=== PATIENT | male | born 1965 | race Caucasian/White ===

== ENCOUNTER → 2017-03-02 | Outpatient (CLI) | payer OTHER ==
--- NOTE | 2017-03-02 10:08 | XR ---
EXAMINATION TYPE: XR chest 2V DATE OF EXAM: 03/02/2017 COMPARISON: NONE HISTORY: Shortness of breath TECHNIQUE: Frontal and lateral views of the chest are obtained. FINDINGS: Scattered senescent parenchymal changes noted. Hyperinflation compatible with COPD. Mild increased density right medial lung base may reflect developing infiltrate or atelectasis. Heart size is stable. Mediastinal structures are stable and grossly unremarkable. No evidence for hilar prominence. Degenerative changes dorsal spine. IMPRESSION: 1. Mild increased density right medial lung base may reflect developing infiltrate or atelectasis.
--- NOTE | 2017-03-02 10:12 | XR ---
EXAMINATION TYPE: XR knee complete LT DATE OF EXAM: 03/02/2017 COMPARISON: NONE HISTORY: Knee pain TECHNIQUE: Four views are submitted. FINDINGS: Mild narrowing of the medial compartment with minimal spur formation. No erosive changes.. Osseous s tructures are intact. No acute fracture seen. IMPRESSION: 1. No acute fracture or dislocation. Mild osteoarthritis.
== END | disposition home or self-care (01) ==
LOC: RADXRMAIN 09:32
PROVIDERS: ATTEND Family Medicine
DX: M17.12 Unilateral primary osteoarthritis, left knee (principal); J98.4 Other disorders of lung
CPT/HCPCS: 71020

== ENCOUNTER → 2017-03-09 | Outpatient (CLI) | payer OTHER ==
--- NOTE | 2017-03-09 15:39 | XR ---
EXAMINATION TYPE: XR chest 2V DATE OF EXAM: 03/09/2017 COMPARISON: Prior chest x-ray 03/02/2017 HISTORY: Edema, R 60.9 TECHNIQUE: Frontal and lateral views of the chest are obtained. FINDINGS: There may be a spinal curvature, patient is rotated. No evident pneumonia, pneumothorax, o r pleural effusion. Cardiac mediastinal silhouette, pulmonary vascularity and reece are stable. Suspec t some improved aeration at the lung bases. Difficult to exclude some airspace disease at the left co stophrenic angle. IMPRESSION: Rotated exam possibly due to underlying scoliosis. There may be some basilar atelectasis or scarring versus pneumonia at the left lower lobe or lingula. Findings could be technical. Follow- up as indicated.
== END | disposition home or self-care (01) ==
LOC: RADXRMAIN 13:58
PROVIDERS: ATTEND Family Medicine
DX: R60.9 Edema, unspecified (principal)
CPT/HCPCS: 71020

== ENCOUNTER → 2017-03-23 | Outpatient (CLI) | payer OTHER ==
--- NOTE | 2017-03-23 10:29 | ECHOF ---
Referral Reason:R609 edema MEASUREMENTS -------- HEIGHT: 152.4 cm WEIGHT: 115.7 kg BP: RVIDd: 3.1 cm (< 3.3) IVSd: 1.0 cm (0.6 - 1.1) LVIDd: 4.6 cm (3.9 - 5.3) LVPWd: 1.0 cm (0.6 - 1.1) IVSs: 1.3 cm LVIDs: 3.7 cm LVPWs: 1.3 cm LA Diam: 3.0 cm (2.7 - 3.8) Ao Diam: 3.5 cm (2.0 - 3.7) AV Cusp: 2.3 cm (1.5 - 2.6) LA Diam: 3.1 cm (2.7 - 3.8) MV EXCURSION: 21.171 mm (> 18.000) MV EF SLOPE: 88 mm/s (70 - 150) EPSS: 0.3 cm MV E Praveen: 0.42 m/s MV DecT: 153 ms MV A Praveen: 0.39 m/s MV E/A Ratio: 1.07 RAP: 5.00 mmHg RVSP: 11.95 mmHg FINDINGS -------- Sinus rhythm. Pt is Special needs. Left ventricular wall thickness is normal. Overall left ventricular systolic function is normal with, an EF between 55 - 60 %. The right ventricle is normal in size. The left atrial size is normal. The right atrial size is normal. There is mild aortic valve sclerosis. There is no evidence of aortic regurgitation. Mild mitral annular calcification present. Mild mitral regurgitation is present. Trace tricuspid regurgitation present. There is no evidence of pulmonary hypertension. The right ventricular systolic pressure, as measured by Doppler, is 11.95mmHg. The pulmonic valve was not well visualized. The aortic root size is normal. There is no pericardial effusion. CONCLUSIONS -------- 1. Pt is Special needs. 2. The pulmonic valve was not well visualized. 3. Left ventricular wall thickness is normal. 4. Overall left ventricular systolic function is normal with, an EF between 55 - 60 %. 5. There is mild aortic valve sclerosis. 6. Mild mitral annular calcification present. 7. Mild mitral regurgitation is present. 8. Trace tricuspid regurgitation present. 9. There is no evidence of pulmonary hypertension. 10. The right ventricular systolic pressure, as measured by Doppler, is 11.95mmHg. BAND SAWMILL OPERATOR: Talita River RDCS
--- NOTE | 2017-03-24 13:12 | P.ARTDOP ---
Arterial Doppler LOWER EXTREMITY ARTERIAL DOPPLER: DATE OF SERVICE: 03/23/2017 Reason for study: Edema. Doppler waveforms: Multiphasic bilaterally throughout. Pulse volume recording: Normal configuration. Pressure gradients: None. Ankle-brachial indices: Greater than 1 bilaterally. Toe pressures: [] on the right, [] on the left Impression: Normal study.
== END | disposition home or self-care (01) ==
LOC: RADECHMAIN 08:42
PROVIDERS: ATTEND Family Medicine
DX: I73.9 Peripheral vascular disease, unspecified (principal); R60.9 Edema, unspecified
CPT/HCPCS: 93306; 93923

== ENCOUNTER 2019-10-11 08:33 | Day surgery (SDC) | payer OTHER ==
[2019-10-03 15:19] VITALS: BMI 29.7
--- NOTE | 2019-10-11 07:35 | P.GSHP ---
History of Present Illness H&P Date: 10/11/19 CHIEF COMPLAINT: GERD and colon screen HISTORY OF PRESENT ILLNESS: The patient is a 53-year-old male who presents with gastroesophageal reflux disease and need for colon screen. Upper and lower endoscopy were offered for further evaluation and management. PAST MEDICAL HISTORY: Please see list. PAST SURGICAL HISTORY: Please see list. MEDICATIONS: Please see list. ALLERGIES: Please see list. SOCIAL HISTORY: No illicit drug use FAMILY HISTORY: No reports of Crohn disease or ulcerative colitis. REVIEW OF ORGAN SYSTEMS: CONSTITUTIONAL: No reports of fevers or chills. GI: Denies any blood in stools or constipation. PHYSICAL EXAM: VITAL SIGNS: Stable GENERAL: Well-developed pleasant in no acute distress. HEENT: No scleral icterus. Extraocular movements grossly intact. Moist buccal mucosa. NECK: Supple without lymphadenopathy. CHEST: Unlabored respirations. Equal bilateral excursions. CARDIOVASCULAR: Regular rate and rhythm. Distal 2+ pulses. ABDOMEN: Soft, nondistended. MUSCULOSKELETAL: No clubbing, cyanosis, or edema. ASSESSMENT: 1. Gastroesophageal reflux disease 2. Colon screen. PLAN: 1. Recommend proceeding with an upper and lower endoscopy Past Medical History Past Medical History: Hypertension Additional Past Medical History / Comment(s): autism-limited speech and short phrases, can become agitated and combative,intermittent vomiting mucus when eating-no pattern or with certain foods History of Any Multi-Drug Resistant Organisms: None Reported Past Surgical History: No Surgical Hx Reported Past Anesthesia/Blood Transfusion Reactions: No Reported Reaction Additional Past Anesthesia/Blood Transfusion Reaction / Comment(s): never has had general anesthesia Smoking Status: Never smoker - Past Family History Mother History Unknown: Yes Father Family Medical History: Cancer Additional Family Medical History / Comment(s): prostate Medications and Allergies Home Medications Medication Instructions Recorded Confirmed Type Ascorbic Acid [Vitamin C] 500 mg PO DAILY 10/03/19 10/03/19 History Carvedilol 25 mg PO HS 10/03/19 10/03/19 History FLUoxetine HCL [PROzac] 80 mg PO QAM 10/03/19 10/03/19 History Furosemide [Lasix] 40 mg PO DAILY 10/03/19 10/03/19 History LORazepam [Ativan] 0.25 mg PO BID 10/03/19 10/03/19 History Lisinopril-Hctz 20-25 mg 1 tab PO DAILY 10/03/19 10/03/19 History [Zestoretic 20-25] Omeprazole 20 mg PO BID 10/03/19 10/03/19 History Polyethylene Glycol 3350 [Miralax] 17 gm PO DAILY 10/03/19 10/03/19 History Potassium Chloride [K-Tab ER] 20 meq PO DAILY 10/03/19 10/03/19 History Vitamin E 400 unit PO DAILY 10/03/19 10/03/19 History Ziprasidone [Geodon] 40 mg PO BID 10/03/19 10/03/19 History Allergies Allergy/AdvReac Type Severity Reaction Status Date / Time Penicillins Allergy Unknown Verified 10/03/19 15:06
[~2019-10-11 08:33] MED LIST: LACTATED RINGERS 1,000 ML IV SCH; LIDOCAINE 1% (10MG/ML) FOR IV START INTRADERMA PRN
[2019-10-11 08:59] VITALS: TEMP 97.8
[2019-10-11] MEDS ORDERED: MIDAZOLAM 2 MG/2 ML VIAL IVP ONE (09:15)
[2019-10-11] MEDS ORDERED: PROPOFOL 10 MG/ML 20 ML VIAL IV ONE (09:57)
[2019-10-11] MEDS ORDERED: LIDOCAINE 1% INJ 10MG/ML (20 ML MDV) ONE (09:57)
--- NOTE | 2019-10-11 10:30 | P.PCN ---
Date of Procedure: 10/11/19 Description of Procedure: PREOPERATIVE DIAGNOSIS: Dysphagia Cognitive delay POSTOPERATIVE DIAGNOSIS: Dysphagia Cognitive delay Gastroesophageal reflux disease. Diaphragmatic hiatal hernia Distal esophageal web OPERATION: Esophagogastroduodenoscopy with balloon dilation, 20 mm esophageal web SURGEON: Linette Gonsales MD ANESTHESIA: MAC. INDICATIONS: The patient is a 53-year-old male who presents with dysphagia. Benefits and risks of the procedure were described. Informed consent was obtained. DESCRIPTION: The patient was brought into the endoscopy suite and laid in the left lateral decubitus position. An Olympus gastroscope was passed along the posterior oropharynx down to the distal esophagus where the squamocolumnar junction was encountered at 35 cm from the incisors. The stomach was entered and no bile reflux was found. Additional findings are listed below. Biopsies with cold forceps were obtained of the antrum. The first through third portion of the duodenum was examined and unremarkable. Retroflexion of the scope confirmed Hill grade 4 lower esophageal valve. The squamocolumnar junction demonstrated LA grade B erosive esophagitis. The stomach was desufflated. The patient tolerated the procedure well. FINDINGS: Squamocolumnar junction 35 cm from the incisors. Diaphragmatic hiatus at 40 cm. Hiatal hernia, 5 cm, sliding hiatal hernia Hill grade 4 lower esophageal valve. LA grade B erosive esophagitis. No active duodenitis. No diffuse acute gastritis RECOMMENDATIONS: Upper endoscopy as needed.
--- NOTE | 2019-10-11 10:57 | P.PCN ---
Date of Procedure: 10/11/19 Description of Procedure: PREOPERATIVE DIAGNOSIS: Colonoscopy screening POSTOPERATIVE DIAGNOSIS: Colonoscopy screening Tubular adenoma transverse colon Sigmoid diverticulosis Clinical obstructive sleep apnea OPERATION: Colonoscopy to the ascending colon Colonoscopy with hot snare polypectomy SURGEON: Linette Gonsales MD. ANESTHESIA: MAC. INDICATIONS: The patient is an 53-year-old male who presents for his first colonoscopy screening. Benefits and risks were described and informed consent was obtained. DESCRIPTION OF PROCEDURE: The patient had undergone Suprep. He had been brought into the operating room and laid in the left lateral decubitus position. After adequate intravenous sedation, the rectum was examined with 2% lidocaine jelly. The prostate was unremarkable. No external hemorrhoids were encountered. The rectal tone was loose. No lesions were palpated in the rectal vault. An Olympus colonoscope was advanced through the ascending colon. The prep was fair. Sigmoid diverticulosis was encountered. Tubular adenoma 7-mm proximal transverse colon snare polypectomy. No evidence of focal colitis was found. Retroflexion of the scope demonstrated grade 1 internal hemorrhoids without active bleeding or inflammation. The colon was desufflated. The patient had tolerated the procedure well. During the case, patient had clinical obstructive sleep apnea requiring supplementary oxygen and airway control. Withdrawal time was over 6 minutes. FINDINGS: Aronchick preparation quality scale 3 (1-5) Internal hemorrhoids, grade 1 No external hemorrhoids No arteriovenous malformations. Sigmoid diverticulosis Removal of 1 polyps : - Snare polypectomy at proximal transverse colon, 7 mm polyp. No focal colitis. RECOMMENDATIONS: Repeat colonoscopy 3 years, 2022 Plan - Discharge Summary Discharge Rx Participant: No New Discharge Prescriptions: Continue Ziprasidone [Geodon] 40 mg PO BID Vitamin E 400 unit PO DAILY Ascorbic Acid [Vitamin C] 500 mg PO DAILY Potassium Chloride [K-Tab ER] 20 meq PO DAILY Omeprazole 20 mg PO BID Lisinopril-Hctz 20-25 mg [Zestoretic 20-25] 1 tab PO DAILY LORazepam [Ativan] 0.25 mg PO BID Polyethylene Glycol 3350 [Miralax] 17 gm PO DAILY Furosemide [Lasix] 40 mg PO DAILY FLUoxetine HCL [PROzac] 80 mg PO QAM Carvedilol 25 mg PO HS Discharge Medication List Ascorbic Acid [Vitamin C] 500 mg PO DAILY 10/03/19 [History] Carvedilol 25 mg PO HS 10/03/19 [History] FLUoxetine HCL [PROzac] 80 mg PO QAM 10/03/19 [History] Furosemide [Lasix] 40 mg PO DAILY 10/03/19 [History] LORazepam [Ativan] 0.25 mg PO BID 10/03/19 [History] Lisinopril-Hctz 20-25 mg [Zestoretic 20-25] 1 tab PO DAILY 10/03/19 [History] Omeprazole 20 mg PO BID 10/03/19 [History] Polyethylene Glycol 3350 [Miralax] 17 gm PO DAILY 10/03/19 [History] Potassium Chloride [K-Tab ER] 20 meq PO DAILY 10/03/19 [History] Vitamin E 400 unit PO DAILY 10/03/19 [History] Ziprasidone [Geodon] 40 mg PO BID 10/03/19 [History] Follow up Appointment(s)/Referral(s): Linette Gonsales MD [STAFF PHYSICIAN] - 10/24/19 Patient Instructions/Handouts: Esophageal Stricture (ED), Esophageal Dilation (DC), Hiatal Hernia (DC) Discharge Disposition: HOME SELF-CARE
[2019-10-11 11:32] VITALS: BP 142/96; PULSE 69; RESP 20
--- NOTE | 2019-10-13 12:31 | CDI ---
Date: 10.13.19 CDS/Produce Wrapper Name: Lorraine Sotelo Phone: If any questions, call Katelyn Flynn [facility] at [phone] Patient Name: Dru Admit Date: 10.11.19 Discharge Date: 10.11.19 ATTENTION: The [facility] Coding Staff appreciate your assistance in clarifying documentation. Please respond to the clarification below the line at the bottom and electronically sign. The [facility] Coding staff will review the response and follow-up if needed. Please note: Queries are made part of the Legal Health Record. If you have any questions, please contact the Tug [facility]. Dear Dr Gonsales On the EGD report under the operation that was listed you dictated EGD w/Balloon dilation, 20 mm esophageal web. But in the description of the report the dilation or esophageal web is not mentioned. Was this done? If so, please document it. Thank you for your kind consideration. PLEASE SEE CORRECTED OP NOTE. KM 10/13/19 15:37 MTDD
== END 2019-10-11 12:00 | disposition home health service (06) ==
LOC: ORWHC2ENDO 08:33
PROVIDERS: ATTEND Surgery Plastic and Reconstructive Surgery
DX: K21.0 Gastro-esophageal reflux disease with esophagitis (principal); K22.10 Ulcer of esophagus without bleeding; K44.9 Diaphragmatic hernia without obstruction or gangrene; Q39.4 Esophageal web; Z12.11 Encounter for screening for malignant neoplasm of colon; D12.3 Benign neoplasm of transverse colon; K57.30 Diverticulosis of large intestine without perforation or abscess without bleeding; K64.0 First degree hemorrhoids; G47.33 Obstructive sleep apnea (adult) (pediatric); F84.0 Autistic disorder; G31.84 Mild cognitive impairment of uncertain or unknown etiology; I10 Essential (primary) hypertension; F41.9 Anxiety disorder, unspecified; Z88.0 Allergy status to penicillin; Z79.899 Other long term (current) drug therapy; Z86.69 Personal history of other diseases of the nervous system and sense organs; Z80.42 Family history of malignant neoplasm of prostate
CPT/HCPCS: 88305; 45385; 43239; 43249; J2250; J2001; J2704; C1726

== ENCOUNTER 2019-10-11 15:41 | Emergency (ER) | payer OTHER ==
[2019-10-11] MEDS ORDERED: LORazepam 2 MG/ML INJ ONE (16:14)
[2019-10-11] MEDS ORDERED: METOCLOPRAMIDE 5 MG/ML 2 ML VIAL IVP STA (16:22)
[2019-10-11] MEDS ORDERED: SODIUM CHLORIDE 0.9% 1,000 ML IV ONE (16:23)
[2019-10-11] MEDS ORDERED: SODIUM CHLORIDE 0.9% 500 ML 500 ML IV ONE (16:23)
[2019-10-11] MEDS ORDERED: LORazepam 2 MG/ML INJ IV STA (16:23)
--- NOTE | 2019-10-11 16:29 | ED ---
General Adult HPI - General Chief complaint: Abdominal Pain Stated complaint: Vomiting pos op Time Seen by Provider: 10/11/19 15:45 Source: patient, RN notes reviewed, old records reviewed, Caregiver Mode of arrival: wheelchair Limitations: physical limitation - History of Present Illness Initial comments: This is a 53-year-old male who presents to the emergency department with his caregiver. Patient is developmentally delayed. Patient has been vomiting intermittently since May. Patient came in today to have a esophageal dilatation and endoscopy. Patient was sent home was doing fine took a popsicle at home and then started the vomiting. Caregiver states that the vomiting is the same visits always been when she called the office they told her to come to the emergency department. Patient is unable to give any history. Caregiver states this is what they've been dealing with since May and nothing has changed and they wouldn't brought a minute less Dr. Bhandari office told him to bring him in - Related Data Home Medications Medication Instructions Recorded Confirmed Ascorbic Acid [Vitamin C] 500 mg PO HS@199910/03/19 10/11/19 Carvedilol 25 mg PO HS@199910/03/19 10/11/19 FLUoxetine HCL [PROzac] 80 mg PO DAILY@0800 10/03/19 10/11/19 Furosemide [Lasix] 40 mg PO DAILY@0810/03/19 10/11/19 LORazepam [Ativan] 0.25 mg PO BID@0800,1500 10/03/19 10/11/19 Lisinopril-Hctz 20-25 mg 1 tab PO DAILY@79910/03/19 10/11/19 [Zestoretic 20-25] Omeprazole 20 mg PO BID@07,199910/03/19 10/11/19 Polyethylene Glycol 3350 [Miralax] 17 gm PO DAILY@0800 10/03/19 10/11/19 Potassium Chloride [K-Tab ER] 20 meq PO DAILY@79910/03/19 10/11/19 Vitamin E 400 unit PO HS@199910/03/19 10/11/19 Ziprasidone [Geodon] 40 mg PO BID@0800,1800 10/03/19 10/11/19 Albuterol Inhaler [Ventolin Hfa 2 puff INHALATION RT-Q6H PRN 10/11/19 10/11/19 Inhaler] guaiFENesin SYRUP 100MG/5ML 200 mg PO TID PRN 10/11/19 10/11/19 [Robitussin] guaiFENesin-DM 600/30MG [Mucinex 1 tab PO BID PRN 10/11/19 10/11/19 Dm] Allergies Allergy/AdvReac Type Severity Reaction Status Date / Time Penicillins Allergy Unknown Verified 10/11/19 17:21 Review of Systems ROS Statement: Those systems with pertinent positive or pertinent negative responses have been documented in the HPI. ROS Other: All systems not noted in ROS Statement are negative. Past Medical History Past Medical History: Hypertension Additional Past Medical History / Comment(s): autism-limited speech and short phrases, can become agitated and combative,intermittent vomiting mucus when eating-no pattern or with certain foods History of Any Multi-Drug Resistant Organisms: None Reported Past Surgical History: No Surgical Hx Reported Past Anesthesia/Blood Transfusion Reactions: No Reported Reaction Additional Past Anesthesia/Blood Transfusion Reaction / Comment(s): never has had general anesthesia Past Psychological History: Anxiety Smoking Status: Never smoker - Past Family History Mother History Unknown: Yes Father Family Medical History: Cancer Additional Family Medical History / Comment(s): prostate General Exam - General Exam Comments Initial Comments: GENERAL Patient is well-developed and well-nourished. Patient is in mild distress. Patient is vomiting up clear sputum. EYES Patient's pupils are equal and round. Extraocular motion is intact SKIN Unremarkable ABDOMINAL Nontender NEURO The patient is alert and at his baseline orientation according to the caregiver PYSCH Unable to assess secondary to his developmental delay MUSCULOSKELETAL Patient was all 4 extremities. Limitations: physical limitation Course Vital Signs 10/11/19 10/11/19 15:44 17:22 Temperature 97.3 F L 98.1 F Pulse Rate 79 86 Respiratory 20 19 Rate Blood Pressure 151/88 123/74 O2 Sat by Pulse 100 95 Oximetry Medical Decision Making - Medical Decision Making I spoke with Dr. Bhandari she wanted us to hydrate the patient up give him some antibiotics and do a chest x-ray and everything was fine she wanted the patient to be discharged home and follow-up. Chest x-ray shows no acute abnormality. Disposition Clinical Impression: Chronic vomiting Disposition: HOME SELF-CARE Condition: Good Instructions (If sedation given, give patient instructions): Acute Nausea and Vomiting (ED) Is patient prescribed a controlled substance at d/c from ED?: No Referrals: Andre Murillo Jr, [Primary Care Provider] - 1-2 days Time of Disposition: 17:52
--- NOTE | 2019-10-11 16:47 | XR ---
EXAMINATION TYPE: XR chest 1V portable DATE OF EXAM: 10/11/2019 COMPARISON: 03/09/2017 HISTORY: Abdominal pain. Sore throat. Nausea and vomiting. TECHNIQUE: Single view FINDINGS: There is no heart failure nor confluent pneumonic infiltrate. Costophrenic angles are clear . There are no hilar masses. Mediastinum appears normal. IMPRESSION: No active cardiopulmonary disease.
[2019-10-11 17:23] VITALS: BP 123/74; PULSE 86; RESP 19; TEMP 98.1
--- NOTE | 2019-10-11 18:12 | P.GSCN ---
History of Present Illness Consult date: 10/11/19 History of present illness: CHIEF COMPLAINT: Intractable nausea and vomiting HISTORY OF PRESENT ILLNESS: The patient is a 53-year-old male with cognitive delay who earlier today had both an upper and lower endoscopy. Upper endoscopy was performed for dysphagia. Findings of hiatal hernia and esophageal stricture following dilation was performed. Per discussion with family, patient has long- standing history of chronic dysphagia. The family was advised to keep the patient li on quid diet today. Immediately upon returning home, he was started on popsicles where he developed violent intractable nausea and vomiting. They had notify my office. As result of the severity of his intractable nausea vomiting , they came to the emergency room. At the time of my assessment, patient is relatively comfortable. He has intermittent cough. No productive sputum or phlegm. No reports of abdominal pain. His caregiver from this morning is at bedside. She confirms the patient has trouble was textured foods including positives and breaths. She has tried cutting noodles and feeding him before with nausea and vomiting as a result. He tolerated liquids prior to discharge earlier this morning without incident. PAST MEDICAL HISTORY: See list. PAST SURGICAL HISTORY: See list. MEDICATIONS: See list. ALLERGIES: See list. SOCIAL HISTORY: See list. FAMILY HISTORY: See list. REVIEW OF ORGAN SYSTEMS: CONSTITUTIONAL: No fevers or chills. No recent weight loss. EYES: Denies any trouble with vision. Wears glasses. HEENT: No difficulties with hearing. No nosebleeds. Has difficulty swallowing. RESPIRATORY: Has witnessed obstructive sleep apnea. CARDIOVASCULAR: Denies current chest pain. GASTROINTESTINAL: Denies fatty food intolerance. Has chronic constipation. Colonoscopy this morning with polyp removed from proximal transverse colon. GENITOURINARY: No increased urinary frequency. NEUROLOGICAL: Denies any numbness or tingling along the distal extremities. Has seizure disorders. MUSCULOSKELETAL: Has intermittent back pain, stiffness or joint arthritis. SKIN: No current skin cancer. No rash. PSYCHIATRIC: Has depression ENDOCRINE: Has thyroid disorders. Denies any blood sugar glucose intolerance. HEME/LYMPHATIC: No lumps and bumps around the neck. No recent deep venous thrombosis. ALLERGY/IMMUNOLOGY: No immunoglobulin therapy. No immune deficiencies. BREAST: No breast lumps, pain or nipple discharge. PHYSICAL EXAM: VITALS: Reviewed CONSTITUTIONAL: Well developed and in no acute distress. EYES: Conjuctivae without sclera icterus. Pupils are equally round and reactive to light. Extraocular movements grossly intact. HEAD, EARS, NOSE, THROAT: Moist buccal mucosa. Head is atraumatic, normocephalic. Hears conversational speech. No nasal drainage. NECK: Supple. No JV distention. No thyroidomegaly. RESPIRATORY: Non-labored respirations and equal bilateral excursions. No gross wheezes. CARDIOVASCULAR: Regular rate and rhythm. Extremities without moderate edema. Palpable 2+ radial pulses. ABDOMEN: Soft. Non-tender. Nondistended. LYMPH: No neck lymphadenopathy. No axillary lymphadenopathy. MUSCULOSKELETAL: Nail and fingers with good capillary refill. SKIN: Warm and well perfused with good skin turgor. NEUROLOGIC: Cranial nerves I through XII grossly intact. Sensation upper and extremities intact. No focal or lateralizing signs. PSYCH: Flat affect. Alert to person. Rigid speech. CLINCAL LABS: None available. [facility] without erythema mediastinum. RADIOLOGY: Report reviewed confirms unremarkable study ASSESSMENT: 1. Intractable nausea vomiting, pre-existing 2. History of dysphagia 3. Esophageal stricture 4. Hiatal hernia 5. Cognitive delay 6. Seizure disorder 7. Obstructive sleep apnea PLAN: 1. Recommend antiemetics prior to discharge. 2. Family told to continue liquid diet. Avoid textured foods such as breads and meats processes. May have cream of wheat. 3. Follow-up in the office 4. Will need outpatient swallow study including assessment of obstructive sleep apnea. Thank you for this kind consultation. Past Medical History Past Medical History: Hypertension Additional Past Medical History / Comment(s): autism-limited speech and short phrases, can become agitated and combative,intermittent vomiting mucus when eating-no pattern or with certain foods History of Any Multi-Drug Resistant Organisms: None Reported Past Surgical History: No Surgical Hx Reported Past Anesthesia/Blood Transfusion Reactions: No Reported Reaction Additional Past Anesthesia/Blood Transfusion Reaction / Comm: never has had general anesthesia Past Psychological History: Anxiety Smoking Status: Never smoker - Past Family History Mother History Unknown: Yes Father Family Medical History: Cancer Additional Family Medical History / Comment(s): prostate Medications and Allergies Home Medications Medication Instructions Recorded Confirmed Type Ascorbic Acid [Vitamin C] 500 mg PO HS@199910/03/19 10/11/19 History Carvedilol 25 mg PO HS@199910/03/19 10/11/19 History FLUoxetine HCL [PROzac] 80 mg PO DAILY@0800 10/03/19 10/11/19 History Furosemide [Lasix] 40 mg PO DAILY@0800 10/03/19 10/11/19 History LORazepam [Ativan] 0.25 mg PO BID@0800,1500 10/03/19 10/11/19 History Lisinopril-Hctz 20-25 mg 1 tab PO DAILY@0800 10/03/19 10/11/19 History [Zestoretic 20-25] Omeprazole 20 mg PO BID@0700,199910/03/19 10/11/19 History Polyethylene Glycol 3350 [Miralax] 17 gm PO DAILY@0800 10/03/19 10/11/19 History Potassium Chloride [K-Tab ER] 20 meq PO DAILY@0800 10/03/19 10/11/19 History Vitamin E 400 unit PO HS@199910/03/19 10/11/19 History Ziprasidone [Geodon] 40 mg PO BID@0800,1800 10/03/19 10/11/19 History Albuterol Inhaler [Ventolin Hfa 2 puff INHALATION RT-Q6H PRN 10/11/19 10/11/19 History Inhaler] guaiFENesin SYRUP 100MG/5ML 200 mg PO TID PRN 10/11/19 10/11/19 History [Robitussin] guaiFENesin-DM 600/30MG [Mucinex 1 tab PO BID PRN 10/11/19 10/11/19 History Dm] Allergies Allergy/AdvReac Type Severity Reaction Status Date / Time Penicillins Allergy Unknown Verified 10/11/19 17:21 Surgical - Exam Vital Signs Temp Pulse Resp BP Pulse Ox 97.3 F L 79 20 151/88 100 10/11/19 15:44 10/11/19 15:44 10/11/19 15:44 10/11/19 15:44 10/11/19 15:44 Assessment and Plan (1) Intractable vomiting Current Visit: Yes Status: Acute Code(s): R11.10 - VOMITING, UNSPECIFIED SNOMED Code(s): 288968153 (2) Esophageal stricture Current Visit: Yes Status: Acute Code(s): K22.2 - ESOPHAGEAL OBSTRUCTION SNOMED Code(s): 23229784 (3) Noncompliance with dietary restriction Current Visit: Yes Status: Acute Code(s): Z91.11 - PATIENT'S NONCOMPLIANCE WITH DIETARY REGIMEN SNOMED Code(s): 772259073 (4) Cognitive developmental delay Current Visit: No Status: Acute Code(s): F81.9 - DEVELOPMENTAL DISORDER OF SCHOLASTIC SKILLS, UNSPECIFIED SNOMED Code(s): 172834037 (5) Dysphagia Current Visit: No Status: Acute Code(s): R13.10 - DYSPHAGIA, UNSPECIFIED SNOMED Code(s): 98578744 (6) Hypotonia, speech impairment, and severe cognitive delay syndrome Current Visit: No Status: Acute Code(s): Q87.89 - OTH CONGENITAL MALFORMATION SYNDROMES, NEC; P94.2 - CONGENITAL HYPOTONIA; F81.9 - DEVELOPMENTAL DISORDER OF SCHOLASTIC SKILLS, UNSPECIFIED; R47.89 - OTHER SPEECH DISTURBANCES SNOMED Code(s): 413203352
== END 2019-10-11 18:06 | disposition home or self-care (01) ==
LOC: EC 15:41 → EEVIPCON 15:41 → EC 18:06
DX: R11.10 Vomiting, unspecified (principal); K22.2 Esophageal obstruction; G31.84 Mild cognitive impairment of uncertain or unknown etiology; Q87.89 Other specified congenital malformation syndromes, not elsewhere classified; P94.2 Congenital hypotonia; F81.9 Developmental disorder of scholastic skills, unspecified; Z91.19 Patient's noncompliance with other medical treatment and regimen; F84.0 Autistic disorder; I10 Essential (primary) hypertension; F41.9 Anxiety disorder, unspecified; Z88.0 Allergy status to penicillin; Z79.899 Other long term (current) drug therapy
CPT/HCPCS: 71045; 99284; 96374; 96375; 96361; J2060; J2765

== ENCOUNTER → 2020-02-14 | Outpatient (CLI) | payer OTHER ==
--- NOTE | 2020-02-14 11:52 | FL ---
EXAMINATION TYPE: FL barium swallow DATE OF EXAM: 02/14/2020 COMPARISON: NONE HISTORY: K22.4 Dyskinesia of esophagus TECHNIQUE: Fluoroscopy. FINDINGS: Patient presented for esophagram however could not follow directions and the examination wa s terminated. 57 seconds of fluoroscopic time was utilized no images were obtained. IMPRESSION: As Above.
== END | disposition home or self-care (01) ==
LOC: RADUSWWP 09:59
PROVIDERS: ATTEND Surgery Plastic and Reconstructive Surgery
DX: K22.4 Dyskinesia of esophagus (principal)
CPT/HCPCS: 74220

== ENCOUNTER → 2020-09-19 | Outpatient (CLI) | payer OTHER ==
--- NOTE | 2020-09-19 16:20 | CONS ---
CONSULTATION DATE OF SERVICE: 09/19/2020 This patient is a 54-year-old gentleman who has been evaluated in the sleep center for possible obstructive sleep apnea-hypopnea syndrome. HISTORY OF PRESENT ILLNESS/SLEEP-WAKE EVALUATION: Patient's usual sleep schedule is from 8:30 p.m. to 6 to 7 a.m. No problems with falling asleep. No TV in bedroom. He sleeps usually on the back position with loud snoring and awakenings from sleep about 2 times with nocturia. Positive history of witnessed episodes of stopped breathing during sleep that was observed during the surgical procedure. During the day the patient takes one nap around 1:30. [place] Sleepiness Scale is 2. PAST MEDICAL HISTORY: Positive for hypertension, bronchitis, acid reflux, anxiety, autistic disorder. PAST SURGICAL HISTORY: Endoscopic balloon surgery for narrowing of the esophagus, as I understand from his history. MEDICATIONS: 1. Carvedilol 25 mg p.o. once a day. 2. Fluoxetine 20 mg 4 caps per day. 3. Furosemide 40 mg once a day. 4. Lisinopril/hydrochlorothiazide 20/25 mg p.o. once a day. 5. Lorazepam 0.5 mg half tablet in the morning and half tablet at 3 p.m. 6. Omeprazole 20 mg twice a day. 7. Vitamin supplements. SOCIAL HISTORY: Negative for smoking or using alcohol. FAMILY HISTORY: Cancer in his father. REVIEW OF SYSTEMS: Loud snoring, awakenings from sleep. The patient takes naps during the day. PHYSICAL EXAMINATION: GENERAL: A pleasant gentleman without distress. VITAL SIGNS: BP 129/84, HR 85, RR 18, height 5 feet 9-1/4 inches, weight 211.8, temperature 97.4, oxygen saturation at room air 97%. HEENT: PERRLA, EOMI. Evaluation of oropharynx showed tongue protrudes midline. Extremely low position of soft palate. Mallampati IV. NECK: Supple. No JVD. Thyroid is not palpable. Wide neck; 17 inches in circumference. LUNGS: Clear to percussion and to auscultation. Good air exchange. No wheezing or rhonchi. HEART: S1, S2 regular. No murmurs, gallops or rubs. ABDOMEN: Slightly obese. EXTREMITIES: One plus ankle edema. IMPRESSION: 1. Loud snoring, witnessed episodes of stopped breathing during sleep, extremely low position of soft palate, wide neck, sleepiness; patient takes naps; obstructive sleep apnea/hypopnea syndrome. 2. Obesity. BMI 31.1. 3. Hypertension. 4. Autistic disorder. 5. Anxiety. 6. Acid reflux. 7. History of bronchitis. 8. Status post esophageal balloon surgery, according to the personnel of his medical facility. PLAN: 1. Polysomnography for evaluation of patient's breathing during sleep. 2. CPAP/BiPAP titration if sleep study confirms obstructive sleep apnea-hypopnea syndrome. 3. Preferable position during sleep on the side. 4. No driving if patient feels any sleepiness. 5. I will see patient for follow up visit to explain results of testing and following plan. Thank you very much for referring this patient for consultation. Sincerely, Anthony Navarro MD, PhD, FAASM Diplomat of [place] [employer] [place] [employer] Bike Designer of [facility] [place] MMODL / [place]: [id number] /
== END | disposition home or self-care (01) ==
LOC: SLEEP 13:49
PROVIDERS: ATTEND Internal Medicine
DX: G47.33 Obstructive sleep apnea (adult) (pediatric) (principal); E66.9 Obesity, unspecified; I10 Essential (primary) hypertension; K21.9 Gastro-esophageal reflux disease without esophagitis; F41.9 Anxiety disorder, unspecified; F84.0 Autistic disorder; Z68.31 Body mass index [BMI] 31.0-31.9, adult; Z87.09 Personal history of other diseases of the respiratory system; Z98.890 Other specified postprocedural states; Z79.899 Other long term (current) drug therapy
CPT/HCPCS: 99211

== ENCOUNTER → 2021-01-29 | Outpatient (CLI) | payer OTHER ==
--- NOTE | 2021-01-29 21:15 | SFUN ---
SLEEP CENTER FOLLOW UP NOTE DATE OF SERVICE: 01/29/2021. 55-year-old gentleman has been followed in Sleep Center for treatment of obstructive sleep apnea-hypopnea syndrome. The patient had a polysomnogram and CPAP titration and I discussed results of the sleep studies with the patient and the family in detail. Sleep study showed moderate obstructive sleep apnea-hypopnea syndrome. Subsequently after CPAP titration, patient received CPAP unit, started to use it and today is his first visit after he was started on treatment with CPAP. [place] Sleepiness Scale today is 2. Patient experiencing difficulties with a full-face mask because there is some leak to the eyes area. I checked CPAP unit. Range of the pressure 5-12, average pressure 9.1, usage is 30 out of 30 nights with average usage 7 hours 21 out of 30 nights more than 4 hours. Leak is high 68 L/minute. Apnea-hypopnea index is 3.9, which is normal range. MEDICATIONS: Carvedilol 25 mg once a day, fluoxetine 20 mg 4 caps a day, Furosemide 40 mg once a day. Lisinopril hydrochlorothiazide 20/25 mg once a day, lorazepam 0.5 mg half tablet in the morning and half tablet in the afternoon. Omeprazole 20 mg twice a day. Vitamin supplements. PHYSICAL EXAMINATION: GENERAL: Gentleman without distress. BP 90/66, HR 73, RR 14, weight 195.6, temperature 97.3, oxygen saturation at room air 100%. HEENT: PERRLA, EOMI. Evaluation of oropharynx showed extremely low position of soft palate. Mallampati 4. NECK: Supple, no JVD. Thyroid is not palpable. LUNGS: Clear to percussion and to auscultation. Good air exchange. No wheezing or rhonchi. HEART: S1, S2 regular. No murmurs, gallops, or rubs. ABDOMEN: Soft and nontender. Bowel sounds are present. No organomegaly appreciated. EXTREMITIES: No clubbing or cyanosis. HEARING THERAPY TEACHER: Awake, alert, and oriented X3. Cranial nerves 2 to 7 intact. There is no fasciculation or atrophy. noted. No focal deficits observed. IMPRESSION: 1. Moderate obstructive sleep apnea-hypopnea syndrome; apnea-hypopnea index 20.6. The patient demonstrated good compliance with treatment benefitting from treatment. 2. Significant leak from fullface large Quattro mask sometimes to the eye area. 3. Obesity. 4. Hypertension. 5. Autistic disorder. 6. Anxiety. 7. Acid reflux. 8. History of bronchitis. 9. Status post esophageal balloon surgery. 10.Results of the test explained to the patient and personnel of medical facility. PLAN: 1. We measured the patient for different style of full-face mask, which goes to the nose from the below not above and this way we should prevent any leak to the eye area. Prescription was written for ponUpWear medium size fullface mask. 2. Patient will continue to use PAP equipment every night for the whole night. 3. Sleep hygiene with regular time in bed for at least 7-1/2 to 8 hours. 4. Precautions related to driving. No driving if feeling sleepiness. 5. I will maintain all necessary prescription for PAP supplies including mask, tube, filters. 6. Watching weight. 7. Follow-up visit in 6 months or earlier if patient has any problems. Thank you very much for allowing me to participate in management of your patient. Sincerely, Anthony Navarro MD, PhD, FAASM Diplomat of [place] [employer] [place] [employer] Medicine Rug Inspector Hel[facility] [place] MMODL / [place]: [id number] /
== END ==
LOC: SLEEP 10:21
PROVIDERS: ATTEND Internal Medicine
DX: G47.33 Obstructive sleep apnea (adult) (pediatric) (principal); E66.9 Obesity, unspecified; I10 Essential (primary) hypertension; F84.0 Autistic disorder; F41.9 Anxiety disorder, unspecified; J93.82 Other air leak; K21.9 Gastro-esophageal reflux disease without esophagitis; Z87.09 Personal history of other diseases of the respiratory system; Z98.890 Other specified postprocedural states; Z88.0 Allergy status to penicillin

== ENCOUNTER → 2021-07-16 | Outpatient (CLI) | payer OTHER ==
--- NOTE | 2021-07-16 16:25 | CT ---
EXAMINATION TYPE: CT brain wo con DATE OF EXAM: 07/16/2021 COMPARISON: None HISTORY: abnormality of gait CT DLP: 2327.[address] of the brain was performed. The ventricles, basal cisterns and sulci overlying the cerebral convexities demonstrate mild enlargem ent. There is no evidence for intracranial hemorrhage or sulcal effacement. There is decreased attenuation about the periventricular white matter and deep white matter of both c erebral hemispheres, compatible with chronic small vessel ischemia. Differential diagnosis does inclu de demyelination. No mass effects are seen.No midline shift. Osseous calvarium is intact. If symptoms persist consider MRI. IMPRESSION: 1. Age related atrophic and chronic small vessel ischemic change without acute intracranial process s een at this time.
== END | disposition home or self-care (01) ==
LOC: RADCTMAIN 15:40
PROVIDERS: ATTEND Family Medicine
DX: I67.82 Cerebral ischemia (principal); G31.9 Degenerative disease of nervous system, unspecified
CPT/HCPCS: 70450

== ENCOUNTER → 2021-11-05 | Outpatient (CLI) | payer OTHER ==
--- NOTE | 2021-11-05 17:59 | MR ---
EXAMINATION TYPE: MR brain wo con DATE OF EXAM: 11/05/2021 COMPARISON: NONE HISTORY: 55-year-old male Autism, shuffling gait, gait instability TECHNIQUE: Multiplanar, multisequence images of the brain and brainstem were acquired without IV con trast. Fast brain protocol was utilized as the patient is autistic and moving. Diffusion weighted shaun ging is performed. FINDINGS: No evidence for acute infarction, hemorrhage, mass, mass effect, midline shift, herniation, effacemen t of basal cisterns, or extra-axial fluid collection. There is mild generalized supratentorial volume loss. No hydrocephalus. Major intracranial flow voids are intact. T2/FLAIR weighted sequences show mild periventricular bright white matter change probably mild change s of chronic small vessel ischemic disease. Midline structures demonstrate normal morphology. The craniocervical junction is normal. Leftward nasal septal deviation. There are multiple polyps versus mucosal retention cysts within the bilateral maxillary sinuses measuring up to 1.6 cm. Additional similar changes within the right front al sinus and bilateral ethmoid air cells. The globes are elongated suggesting prominent myopia. This should be correlated clinically. IMPRESSION: 1. Mild generalized cerebral atrophy. Mild burden of chronic small vessel ischemic disease. No acute intracranial abnormality seen. 2. Uterine multiple mucosal retention cysts within the right frontal, bilateral ethmoid, and bilatera l maxillary sinuses measuring up to 1.6 cm versus sinus polyposis. Clinically correlate.
== END | disposition home or self-care (01) ==
LOC: RADMRIMAIN 15:49
PROVIDERS: ATTEND Nurse Practitioner Family
DX: I67.82 Cerebral ischemia (principal); G31.89 Other specified degenerative diseases of nervous system; J34.1 Cyst and mucocele of nose and nasal sinus
CPT/HCPCS: 70551

== ENCOUNTER → 2022-01-28 | Outpatient (CLI) | payer OTHER ==
--- NOTE | 2022-01-28 12:02 | P.PN ---
Subjective DATE: 01/28/2022 FOLLOW UP VISIT. Patient with obstructive sleep apnea hypopnea syndrome return to sleep center for follow-up visit. Patient is using PAP equipment every night for the whole night, getting PAP supplies in time. The patient does not have significant problems with the mask, PAP unit and humidification. [place] sleepiness scale is 3. I checked information from PAP unit. PAP unit pressure 5 -12 cm H2O. Usage is 28 out of 30 nights, but only 5 out of 30 nights for more than 4 hours, average 3.1 hours per night. Leak is in acceptable range. Apnea Hypopnea Index is 2.5, which is normal. MEDICATIONS:1. Carvedilol 25 mg once a day 2. Donepezil 5 mg once a day 3. Fluoxetine 20 mg 4 tablets a day 4. Furosemide 40 mg once a day 5. []lisinopril hydrochlorothiazide 2024 milligrams once a day 6. Omeprazole 20 mg once a day 7. Albuterol 8. Vitamins During physical exam: GENERAL: A pleasant patient without any distress. VITAL SIGNS: BP 102/67, HR [], RR 16, weight 187, temperature 97.8, oxygen saturation at room air 99. HEENT: PERRLA, EOMI.low position of soft palate, Mallapati for. NECK: Supple. No JVD. LUNGS: Clear to percussion and to auscultation. Good air exchange. No wheezing or rhonchi. HEART: S1, S2 regular. ABDOMEN: Soft and nontender.[] EXTREMITIES: No clubbing or cyanosis. FURNACE PROCESS PLANT OPERATOR: Awake, alert, and oriented x3. No focal deficit. Impressions: 1. Obstructive sleep apnea-hypopnea syndrome. Patient demonstrated borderline compliance with treatment, benefiting from treatment. 2. Hypertension. 3. Autism. 4. Anxiety. 5. Acid reflux. 6. History of bronchitis. 7. Status post esophageal baloon surgery. Plan: 1. Continue using PAP equipment every night for the whole night. 2. To change air filter at least 1-2 times per month. 3. PAP unit should stay lower then position of the head. 4. Advised patient to remove all remaining water from humidifier canister daily and make it dry after each usage. Refill canister with fresh distilled water before each usage. 5. Sleep hygiene with regular time in bed for at least 8 hours. 6. Precautions related to driving. No driving if feel any sleepiness. 7. I will maintain prescription for PAP supplies including mask, tube, filters. 8. Follow up visit in 12 months or earlier if patient has any problems. 9. Watching weight. Thank you very much for allowing me to participate in the management of your patient. Anthony Navarro MD, PhD, FAASM. Diplomat of [place] [employer], Sleep Medicine Board by [place] [employer] Internal Medicine Director Of [employer] [facility] [place]
== END ==
LOC: SLEEP 11:13
PROVIDERS: ATTEND Internal Medicine
DX: G47.33 Obstructive sleep apnea (adult) (pediatric) (principal); F41.9 Anxiety disorder, unspecified; F84.0 Autistic disorder; I10 Essential (primary) hypertension; K21.9 Gastro-esophageal reflux disease without esophagitis; Z79.899 Other long term (current) drug therapy; Z99.89 Dependence on other enabling machines and devices; Z88.0 Allergy status to penicillin

== ENCOUNTER 2022-09-04 13:35 | Emergency (ER) | payer OTHER ==
[2022-09-04 13:43] VITALS: RESP 20; TEMP 98.1
--- NOTE | 2022-09-04 14:00 | XR ---
EXAMINATION TYPE: XR hand complete RT DATE OF EXAM: 09/04/2022 1:53 PM INDICATION: Patient age:Male; 56 years old; Reason for study: Trauma, pain; PHH. COMPARISON: None TECHNIQUE: Frontal, lateral and oblique views of the right hand were obtained. FINDINGS: Normal alignment of the visualized joints. No acute osseous pathology is identified. Soft tissue swelling over the dorsal aspect of the fourth and fifth MCP joints. IMPRESSION: 1. No acute osseous pathology. 2. Soft tissue swelling over the dorsal aspect of the fourth and fifth MCP joints.
--- NOTE | 2022-09-04 14:12 | ED ---
General Adult HPI - General Chief complaint: Extremity Injury, Upper Stated complaint: punched wall/autism Time Seen by Provider: 09/04/22 13:42 Source: EMS Mode of arrival: EMS Limitations: altered mental status - History of Present Illness Initial comments: This is a 56-year-old male with a past medical history including developmental delay and dementia presented to the emergency department via EMS from his assisted living facility after he punched a wall. The patient reportedly punched a wall very hard and had redness and swelling to the lateral aspect of the right hand over the fourth and fifth knuckles. The patient was at his baseline but cannot provide any history at this time. The patient's caregiver was present and did state that they just wanted him evaluated to make sure that nothing was broken. The patient himself was resting in bed comfortably without any further acute pain or distress. - Related Data Home Medications Medication Instructions Recorded Confirmed Ascorbic Acid [Vitamin C] 500 mg PO HS@199910/03/19 10/11/19 FLUoxetine HCL [PROzac] 80 mg PO DAILY@79910/03/19 10/11/19 Furosemide [Lasix] 40 mg PO DAILY@79910/03/19 10/11/19 LORazepam [Ativan] 0.25 mg PO BID@0800,1500 10/03/19 10/11/19 Lisinopril-Hctz 20-25 mg 1 tab PO DAILY@79910/03/19 10/11/19 [Zestoretic 20-25] Omeprazole 20 mg PO BID@0700,199910/03/19 10/11/19 Potassium Chloride [K-Tab ER] 20 meq PO DAILY@79910/03/19 10/11/19 Vitamin E 400 unit PO HS@199910/03/19 10/11/19 Ziprasidone [Geodon] 40 mg PO BID@0800,1800 10/03/19 10/11/19 carvediloL 25 mg PO HS@199910/03/19 10/11/19 polyethylene glycoL 3350 [Miralax] 17 gm PO DAILY@0800 10/03/19 10/11/19 Albuterol Inhaler [Ventolin Hfa 2 puff INHALATION RT-Q6H PRN 10/11/19 10/11/19 Inhaler] guaiFENesin SYRUP 100MG/5ML 200 mg PO TID PRN 10/11/19 10/11/19 [Robitussin] guaiFENesin-DM 600/30MG [Mucinex 1 tab PO BID PRN 10/11/19 10/11/19 Dm] Allergies Allergy/AdvReac Type Severity Reaction Status Date / Time Penicillins Allergy Unknown Verified 10/11/19 17:21 Review of Systems ROS Statement: Those systems with pertinent positive or pertinent negative responses have been documented in the HPI. ROS Other: All systems not noted in ROS Statement are negative. Past Medical History Past Medical History: Hypertension Additional Past Medical History / Comment(s): autism-limited speech and short phrases, can become agitated and combative,intermittent vomiting mucus when eating-no pattern or with certain foods History of Any Multi-Drug Resistant Organisms: None Reported Past Surgical History: No Surgical Hx Reported Past Anesthesia/Blood Transfusion Reactions: No Reported Reaction Additional Past Anesthesia/Blood Transfusion Reaction / Comment(s): never has had general anesthesia Past Psychological History: Anxiety - Past Family History Mother History Unknown: Yes Father Family Medical History: Cancer Additional Family Medical History / Comment(s): prostate General Exam Limitations: altered mental status (At baseline) General appearance: alert, in no apparent distress Head exam: Present: atraumatic, normocephalic, normal inspection Eye exam: Present: normal appearance, PERRL Pupils: Present: normal accommodation ENT exam: Present: normal exam, normal oropharynx, mucous membranes moist Neck exam: Present: normal inspection, full ROM Respiratory exam: Present: normal lung sounds bilaterally Cardiovascular Exam: Present: regular rate, normal rhythm, normal heart sounds GI/Abdominal exam: Present: soft, normal bowel sounds Extremities exam: Present: normal inspection, full ROM, tenderness (Minor tend erness to palpation noted to the dorsal aspect of the base of the fourth and fifth digit with swelling noted) Back exam: Present: normal inspection, full ROM Neurological exam: Present: alert, oriented X3, CN II-XII intact Psychiatric exam: Present: normal affect, normal mood Skin exam: Present: warm, dry Course Vital Signs 09/04/22 13:37 Temperature 98.1 F Pulse Rate 70 Respiratory 20 Rate Blood Pressure 113/76 O2 Sat by Pulse 96 Oximetry Medical Decision Making - Medical Decision Making Was pt. sent in by a medical professional or institution (, PA, SEALER SANDER, urgent care, hospital, or senior care...) When possible be specific @ - Yes, patient's assisted living facility Did you speak to anyone other than the patient for history (EMS, parent, family, police, friend...)? What history was obtained from this source @ -Yes, patient's caregiver Did you review nursing and triage notes (agree or disagree)? Why? @ -I reviewed and agree with nursing and triage notes Were old charts reviewed (outside hosp., previous admission, EMS record, old EKG, old radiological studies, urgent care reports/EKG's, senior care records)? Report findings @ -No old charts were reviewed Differential Diagnosis (chest pain, altered mental status, abdominal pain women, abdominal pain men, vaginal bleeding, weakness, fever, dyspnea, syncope, headache, dizziness, GI bleed, back pain, seizure, CVA, palpatations, mental h ealth)? @ -Hand fracture, finger fracture, hand sprain EKG interpreted by me (3pts min.). @ -None X-rays interpreted by me (1pt min.). @ -X-rays the right hand was obtained and was interpreted by myself showing no acute process. There was soft tissue swelling over the dorsal aspect of the fourth and fifth MCP joints. CT interpreted by me (1pt min.). @ -None done U/S interpreted by me (1pt. min.). @ -None done What testing was considered but not performed or refused? (CT, X-rays, U/S, labs)? Why? @ -None What meds were considered but not given or refused? Why? @ -None Did you discuss the management of the patient with other professionals (professionals i.e. , PA, SEALER SANDER, lab, RT, psych nurse, geriatric social work professor, roof fixer, teacher, parole or probation officer, telehealth case manager)? Give summary @ -No Was smoking cessation discussed for >3mins.? @ -No Was critical care preformed (if so, how long)? @ -No Were there social determinants of health that impacted care today? How? (Homelessness, low income, unemployed, alcoholism, drug addiction, transportation, low edu. Level, literacy, decrease access to med. care, nursing home, rehab)? @ -skilled nursing patient, developmentally delayed Was there de-escalation of care discussed even if they declined (Discuss DNR or withdrawal of care, Hospice)? DNR status @ -No What co-morbidities impacted this encounter? (DM, HTN, Smoking, COPD, CAD, Cancer, CVA, ARF, Chemo, Hep., AIDS, mental health diagnosis, sleep apnea, morbid obesity)? @ -Developmental delayed, dementia Was patient admitted / discharged? Hospital course, mention meds given and route, prescriptions, significant lab abnormalities, going to OR and other pertinent info. @ -The patient was seen and evaluated in the emergency department. Physical exam, the patient was resting in bed without any acute distress. Vital signs were stable. X-rays of the right hand was obtained and showed no acute fracture but did show soft tissue swelling. The patient was deemed stable for discharge. The patient's caregiver was told to have the patient present back to the emergency department if she had continued pain. The patient was able to this as was the caregiver and the patient was discharged back to his nursing facility in stable condition. Undiagnosed new problem with uncertain prognosis? @ -No Drug Therapy requiring intensive monitoring for toxicity (Heparin, Nitro, Insulin, Cardizem)? @ -No Were any procedures done? @ -No Diagnosis/symptom? @ -Hand sprain, contusion Acute, or Chronic, or Acute on Chronic? @ -Acute Uncomplicated (without systemic symptoms) or Complicated (systemic symptoms)? @ -Uncomplicated Side effects of treatment? @ -No Exacerbation, Progression, or Severe Exacerbation? @ -No Poses a threat to life or bodily function? How? (Chest pain, [place], [place], pneumonia, PE, COPD, DKA, ARF, appy, cholecystitis, CVA, Diverticulitis, Homicidal, Suicidal, threat to staff... and all critical care pts) @ -No Disposition Clinical Impression: Hand sprain, Hand contusion Disposition: HOME SELF-CARE Condition: Stable Instructions (If sedation given, give patient instructions): Hand Sprain (ED) Is patient prescribed a controlled substance at d/c from ED?: No Referrals: Juan Bosch NPC [Primary Care Provider] - 1-2 days Time of Disposition: 14:20
[2022-09-04 14:40] VITALS: BP 110/80; PULSE 68
== END 2022-09-04 14:33 | disposition home or self-care (01) ==
LOC: EC 13:35
DX: S63.654A Sprain of metacarpophalangeal joint of right ring finger, initial encounter (principal); S63.656A Sprain of metacarpophalangeal joint of right little finger, initial encounter; I10 Essential (primary) hypertension; F41.9 Anxiety disorder, unspecified; Z79.899 Other long term (current) drug therapy; Z88.0 Allergy status to penicillin; W22.8XXA Striking against or struck by other objects, initial encounter
CPT/HCPCS: 99284

== ENCOUNTER 2022-11-18 14:58 | Emergency (ER) | payer OTHER ==
[2022-11-18 15:25] VITALS: TEMP 97.9
[2022-11-18] MEDS ORDERED: SODIUM CHLORIDE 0.9% 1,000 ML IV ONE (15:32)
--- NOTE | 2022-11-18 15:38 | ED ---
Altered Mental Status HPI - General Chief Complaint: Altered Mental Status Stated Complaint: Hypotension Time Seen by Provider: 11/18/22 15:22 Source: Caregiver Mode of arrival: EMS Limitations: altered mental status - History of Present Illness Initial Comments: This patient is a 56-year-old man, history of autism and residing in a intermediate, brought to have evaluation for change in his baseline mental status. The caregiver at the bedside reports that the patient has been less active, wanting to lie around all day. The staff at the intermediate noted that his medication included adding Geodon last month, and he may been different since this started. They also check his blood pressure and it has been trending low the past 2 days. They note that the blood pressure was normal today in the morning and that he had not taken his Geodon yesterday. The patient did take his Geodon today and following that his blood pressure has been low. The patient will not give me any history, he does answer yes no questions when asked by the caregiver. Patient denies pain anywhere. Declines food and drink. MD Complaint: altered mental status Onset/Timin -: days(s) Severity: moderate Consistency of Symptoms: getting worse Context: change in medication - Related Data Home Medications Medication Instructions Recorded Confirmed Ascorbic Acid [Vitamin C] 500 mg PO HS@199910/03/19 11/18/22 FLUoxetine HCL [PROzac] 80 mg PO DAILY@0810/03/19 11/18/22 Furosemide [Lasix] 40 mg PO DAILY@0810/03/19 11/18/22 Omeprazole 20 mg PO BID@07,199910/03/19 11/18/22 Vitamin E 400 unit PO HS@199910/03/19 11/18/22 polyethylene glycoL 3350 [Miralax] 17 gm PO DAILY@0810/03/19 11/18/22 Albuterol Inhaler [Ventolin Hfa 2 puff INHALATION RT-Q6H PRN 10/11/19 11/18/22 Inhaler] guaiFENesin SYRUP 100MG/5ML 200 mg PO TID PRN 10/11/19 11/18/22 [Robitussin] Donepezil HCl [Aricept] 10 mg PO HS@199909/13/22 11/18/22 Glucosam/Yoshi-Msm1/C/Kg/Bosw 1 tab PO DAILY@1800 09/13/22 11/18/22 [Glucosamine-Chondroitin Tablet] Ondansetron [Zofran] 4 mg PO Q8HR PRN 09/13/22 11/18/22 Pediatric Multivit No.203/Iron 2 tab PO DAILY@0800 09/13/22 11/18/22 [Flintstones with Iron Tab Chew] Potassium Chloride ER [K-Dur 20] 20 meq PO DAILY@0800 09/13/22 11/18/22 Ziprasidone [Geodon] 20 mg PO BID@0800,1800 09/13/22 11/18/22 Ziprasidone [Geodon] 80 mg PO BID@0800,1800 09/13/22 11/18/22 amLODIPine [Norvasc] 5 mg PO DAILY@79909/13/22 11/18/22 Cetirizine HCl [Zyrtec] 10 mg PO DAILY@1800 11/18/22 11/18/22 Ipratropium-Albuterol Nebulize 3 ml INHALATION RT-TID@,11/18/22 11/18/22 [Duoneb 0.5 mg-3 mg/3 ml Soln] Montelukast [Singulair] 10 mg PO HS@199911/18/22 11/18/22 Nac 400mg 600 mg PO DAILY@79911/18/22 11/18/22 carvediloL 25 mg PO HS 11/18/22 11/18/22 guaiFENesin-DM 600/30MG [Mucinex 1 tab PO Q12HR PRN 11/18/22 11/18/22 Dm] hydroCHLOROthiazide 12.5 mg PO DAILY@79911/18/22 11/18/22 Allergies Allergy/AdvReac Type Severity Reaction Status Date / Time Penicillins Allergy Unknown Verified 11/18/22 15:54 Review of Systems ROS Statement: Those systems with pertinent positive or pertinent negative responses have been documented in the HPI. ROS Other: All systems not noted in ROS Statement are negative. Constitutional: Denies: fever Respiratory: Reports: cough. Denies: dyspnea Cardiovascular: Denies: syncope Gastrointestinal: Denies: vomiting, diarrhea Musculoskeletal: Denies: back pain Neurological: Denies: headache Past Medical History Past Medical History: Hypertension Additional Past Medical History / Comment(s): autism-limited speech and short phrases, can become agitated and combative,intermittent vomiting mucus when eating-no pattern or with certain foods History of Any Multi-Drug Resistant Organisms: None Reported Past Surgical History: No Surgical Hx Reported Past Anesthesia/Blood Transfusion Reactions: No Reported Reaction Additional Past Anesthesia/Blood Transfusion Reaction / Comment(s): never has had general anesthesia Past Psychological History: Anxiety Past Alcohol Use History: None Reported Past Drug Use History: None Reported - Past Family History Mother History Unknown: Yes Father Family Medical History: Cancer Additional Family Medical History / Comment(s): prostate General Exam Limitations: altered mental status General appearance: alert Head exam: Present: atraumatic, normocephalic Eye exam: Present: normal appearance. Absent: scleral icterus, conjunctival injection ENT exam: Present: mucous membranes dry Neck exam: Present: normal inspection, full ROM. Absent: meningismus Respiratory exam: Present: rhonchi. Absent: respiratory distress, wheezes, rales, stridor Cardiovascular Exam: Present: normal rhythm, bradycardia, normal heart sounds. Absent: systolic murmur, diastolic murmur, rubs, gallop GI/Abdominal exam: Present: soft, other (The patient resistant to abdominal exam but there does not appear to be focal tenderness). Absent: distended, tenderness, guarding, rebound, mass Extremities exam: Present: normal inspection, normal capillary refill. Absent: pedal edema, calf tenderness Back exam: Present: normal inspection. Absent: CVA tenderness (R), CVA tenderness (L) Neurological exam: Present: alert. Absent: motor sensory deficit Skin exam: Present: warm, dry, intact, normal color. Absent: rash Course Vital Signs 11/18/22 11/18/22 11/18/22 15:16 18:00 21:04 Temperature 97.9 F Pulse Rate 54 L 57 L Respiratory 15 16 Rate Blood Pressure 91/62 106/63 128/99 O2 Sat by Pulse 96 97 Oximetry Medical Decision Making - Medical Decision Making This patient is 56-year-old man from intermediate here for evaluation of being less active than usual. The patient's workup here does reveal elevated BUN to creatinine suggestive of degree of dehydration. The patient is given IV fluid and per the patient's caregiver he does appear to be closer to his baseline. Th ey would like to take him home and are of the opinion that his medication should be changed back to the previous regimen. I recommend they discussed this with the primary provider. We discussed appropriate follow-up and further care as well as return parameters. The patient had a chest x-ray performed which I interpreted as showing no pneumothorax, infiltrate, or congestive heart failure Was pt. sent in by a medical professional or institution (LEONCIO Valiente, SOCIAL SERVICE AGENCY DIRECTOR, urgent care, hospital, or prison...) When possible be specific @ -Patient sent from [facility] home Did you speak to anyone other than the patient for history (EMS, parent, family, police, friend...)? What history was obtained from this source @ -[Caregiver at his facility gives most of the history Did you review nursing and triage notes (agree or disagree)? Why? @ -[I reviewed and agree with nursing and triage notes] Were old charts reviewed (outside hosp., previous admission, EMS record, old E KG, old radiological studies, urgent care reports/EKG's, prison records)? Report findings @ -[No old charts were reviewed] Differential Diagnosis (chest pain, altered mental status, abdominal pain women, abdominal pain men, vaginal bleeding, weakness, fever, dyspnea, syncope, headache, dizziness, GI bleed, back pain, seizure, CVA, palpatations, mental h ealth, musculoskeletal)? @ -[Differential Altered Mental Status: Hypoglycemia, DKA, hypercapnia, ETOH, overdose, CO poisoning, trauma, myxedema coma, HTN encephalopathy, infection, encephalitis, psychosis, intercranial hemorrhage, hepatic encephalopathy, meningitis, CVA, this is not meant to be an all-inclusive list EKG interpreted by me (3pts min.). @ -[As above] X-rays interpreted by me (1pt min.). @ -[As above] CT interpreted by me (1pt min.). @ -[None done] U/S interpreted by me (1pt. min.). @ -[None done] What testing was considered but not performed or refused? (CT, X-rays, U/S, labs)? Why? @ -[None] What meds were considered but not given or refused? Why? @ -[None] Did you discuss the management of the patient with other professionals (professionals i.e. LEONCIO Valiente, SOCIAL SERVICE AGENCY DIRECTOR, lab, RT, psych nurse, social service manager, aviation technician aircraft, teacher, rating officer, field nurse case manager)? Give summary @ -[Case discussed with patient's caregiver Was smoking cessation discussed for >3mins.? @ -[No] Was critical care preformed (if so, how long)? @ -[No] Were there social determinants of health that impacted care today? How? (Homelessness, low income, unemployed, alcoholism, drug addiction, transportation, low edu. Level, literacy, decrease access to med. care, custodial, rehab)? @ -[There is developmental disability Was there de-escalation of care discussed even if they declined (Discuss DNR or withdrawal of care, Hospice)? DNR status @ -[No] What co-morbidities impacted this encounter? (DM, HTN, Smoking, COPD, CAD, Cancer, CVA, ARF, Chemo, Hep., AIDS, mental health diagnosis, sleep apnea, morbid obesity)? @ -[None] Was patient admitted / discharged? Hospital course, mention meds given and route, prescriptions, significant lab abnormalities, going to OR and other pertinent info. @ -[Patient is discharged with close follow-up Undiagnosed new problem with uncertain prognosis? @ -[No] Drug Therapy requiring intensive monitoring for toxicity (Heparin, Nitro, Insulin, Cardizem)? @ -[No] Were any procedures done? @ -[No] Diagnosis/symptom? @ -[Acute mental status change Acute dehydration Acute, or Chronic, or Acute on Chronic? @ -[default] Uncomplicated (without systemic symptoms) or Complicated (systemic symptoms)? @ -[Uncomplicated Side effects of treatment? @ -[No] Exacerbation, Progression, or Severe Exacerbation? @ -[No] Poses a threat to life or bodily function? How? (Chest pain, [place], [place], pneumonia, PE, COPD, DKA, ARF, appy, cholecystitis, CVA, Diverticulitis, Homicidal, Suicidal, threat to staff... and all critical care pts) @ -[No] - Lab Data Result diagrams: 11/18/22 15:51 11/18/22 16:50 Lab Results 11/18/22 11/18/22 11/18/22 Range/Units 15:51 15:51 15:51 WBC 6.7 (3.8-10.6) k/uL RBC 4.57 (4.30-5.90) m/uL Hgb 12.9 L (13.0-17.5) gm/dL Hct 38.0 L (39.0-53.0) % MCV 83.1 (80.0-100.0) fL MCH 28.2 (25.0-35.0) pg MCHC 33.9 (31.0-37.0) g/dL RDW 14.5 (11.5-15.5) % Plt Count 336 (150-450) k/uL MPV 6.9 Neutrophils % 70 % Lymphocytes % 18 % Monocytes % 7 % Eosinophils % 2 % Basophils % 0 % Neutrophils # 4.7 (1.3-7.7) k/uL Lymphocytes # 1.2 (1.0-4.8) k/uL Monocytes # 0.5 (0-1.0) k/uL Eosinophils # 0.1 (0-0.7) k/uL Basophils # 0.0 (0-0.2) k/uL PT 10.1 (9.0-12.0) sec INR 0.9 (<1.2) APTT 22.6 (22.0-30.0) sec Sodium (137-145) mmol/L Potassium (3.5-5.1) mmol/L Chloride (98-107) mmol/L Carbon Dioxide (22-30) mmol/L Anion Gap mmol/L BUN (9-20) mg/dL Creatinine (0.66-1.25) mg/dL Est GFR (CKD-EPI)AfAm (>60 ml/min/1.73 sqM) Est GFR (CKD-EPI)NonAf (>60 ml/min/1.73 sqM) Glucose (74-99) mg/dL Calcium (8.4-10.2) mg/dL Total Bilirubin (0.2-1.3) mg/dL AST (17-59) U/L ALT (4-49) U/L Alkaline Phosphatase (38-126) U/L Troponin I <0.012 (0.000-0.034) ng/mL Total Protein (6.3-8.2) g/dL Albumin (3.5-5.0) g/dL Urine Color Urine Appearance (Clear) Urine pH (5.0-8.0) Ur Specific [place] (1.001-1.035) Urine Protein (Negative) Urine Glucose (UA) (Negative) Urine Ketones (Negative) Urine Blood (Negative) Urine Nitrite (Negative) Urine Bilirubin (Negative) Urine Urobilinogen (<2.0) mg/dL Ur Leukocyte Esterase (Negative) Coronavirus (PCR) (Not Detectd) 11/18/22 11/18/22 11/18/22 Range/Units 16:50 16:50 16:51 WBC (3.8-10.6) k/uL RBC (4.30-5.90) m/uL Hgb (13.0-17.5) gm/dL Hct (39.0-53.0) % MCV (80.0-100.0) fL MCH (25.0-35.0) pg MCHC (31.0-37.0) g/dL RDW (11.5-15.5) % Plt Count (150-450) k/uL MPV Neutrophils % % Lymphocytes % % Monocytes % % Eosinophils % % Basophils % % Neutrophils # (1.3-7.7) k/uL Lymphocytes # (1.0-4.8) k/uL Monocytes # (0-1.0) k/uL Eosinophils # (0-0.7) k/uL Basophils # (0-0.2) k/uL PT (9.0-12.0) sec INR (<1.2) APTT (22.0-30.0) sec Sodium 137 (137-145) mmol/L Potassium 3.6 (3.5-5.1) mmol/L Chloride 97 L (98-107) mmol/L Carbon Dioxide 32 H (22-30) mmol/L Anion Gap 8 mmol/L BUN 21 H (9-20) mg/dL Creatinine 0.81 (0.66-1.25) mg/dL Est GFR (CKD-EPI)AfAm >90 (>60 ml/min/1.73 sqM) Est GFR (CKD-EPI)NonAf >90 (>60 ml/min/1.73 sqM) Glucose 113 H (74-99) mg/dL Calcium 8.8 (8.4-10.2) mg/dL Total Bilirubin 0.5 (0.2-1.3) mg/dL AST 33 (17-59) U/L ALT 30 (4-49) U/L Alkaline Phosphatase 83 (38-126) U/L Troponin I (0.000-0.034) ng/mL Total Protein 6.9 (6.3-8.2) g/dL Albumin 3.7 (3.5-5.0) g/dL Urine Color Light Yellow Urine Appearance Clear (Clear) Urine pH 7.0 (5.0-8.0) Ur Specific [place] 1.009 (1.001-1.035) Urine Protein Negative (Negative) Urine Glucose (UA) Negative (Negative) Urine Ketones Negative (Negative) Urine Blood Negative (Negative) Urine Nitrite Negative (Negative) Urine Bilirubin Negative (Negative) Urine Urobilinogen <2.0 (<2.0) mg/dL Ur Leukocyte Esterase Negative (Negative) Coronavirus (PCR) Not Detected (Not Detectd) - EKG Data EKG shows normal: sinus rhythm, axis (Borderline left axis), intervals (QTC is 473 ms, prolonged, other intervals are at the upper limit), QRS complexes (Non specific intraventricular conduction delay) Rate: normal (Rate 60 bpm) Disposition Clinical Impression: Dehydration Disposition: HOME SELF-CARE Condition: Good Instructions (If sedation given, give patient instructions): Dehydration (ED), Altered Mental Status (ED) Is patient prescribed a controlled substance at d/c from ED?: No Referrals: Jamie Rondon MD [REFERRING] - 1-2 days
[2022-11-18 16:21] LABS: Basophils % (A) 0 %; Eosinophils # (A) 0.1 k/uL (0-0.7); Eosinophils % (A) 2 %; HGB 12.9 gm/dL (13.0-17.5); Lymphocytes # (A) 1.2 k/uL (1.0-4.8); Lymphocytes % (A) 18 %; MCH 28.2 pg (25.0-35.0); MCHC 33.9 g/dL (31.0-37.0); MCV 83.1 fL (80.0-100.0); Mean Platelet Volume 6.9; Monocytes # (A) 0.5 k/uL (0-1.0); Monocytes % (A) 7 %; Neutrophils # (A) 4.7 k/uL (1.3-7.7); Neutrophils % (A) 70 %; Platelet Count 336 k/uL (150-450); RBC 4.57 m/uL (4.30-5.90); RDW 14.5 % (11.5-15.5); WBC 6.7 k/uL (3.8-10.6)
[2022-11-18 16:56] LABS: INR 0.9 (<1.2); Partial Thromboplastin Time 22.6 sec (22.0-30.0); Prothrombin Time 10.1 sec (9.0-12.0)
[2022-11-18 17:07] LABS: Appearance,Urine Clear (Clear); Bilirubin,Urine Negative (Negative); Blood,Urine Negative (Negative); Color,Urine Light Yellow; Glucose,Urine (UA) Negative (Negative); Ketones,Urine Negative (Negative); Leukocyte Esterase,Urine Negative (Negative); Nitrite,Urine Negative (Negative); Protein,Urine Negative (Negative); Specific Gravity,Urine 1.009 (1.001-1.035); Urobilinogen,Urine <2.0 mg/dL (<2.0)
[2022-11-18 17:24] LABS: ALT 30 U/L (4-49); African American GFR (CKD) >90 (>60 ml/min/1.73 sqM); Albumin 3.7 g/dL (3.5-5.0); Anion Gap 8 mmol/L; Blood Urea Nitrogen 21 mg/dL (9-20); Calcium 8.8 mg/dL (8.4-10.2); Carbon Dioxide 32 mmol/L (22-30); Chloride 97 mmol/L (98-107); Glucose 113 mg/dL (74-99); Non-African American GFR(CKD) >90 (>60 ml/min/1.73 sqM); Sodium 137 mmol/L (137-145); Total Bilirubin 0.5 mg/dL (0.2-1.3); Total Protein 6.9 g/dL (6.3-8.2)
[2022-11-18 17:26] LABS: AST 33 U/L (17-59); Alkaline Phosphatase 83 U/L (38-126); Potassium 3.6 mmol/L (3.5-5.1)
--- NOTE | 2022-11-18 17:26 | XR ---
EXAMINATION TYPE: XR chest 1V portable DATE OF EXAM: 11/18/2022 4:50 PM COMPARISON: Chest radiographs from 09/18/2022 TECHNIQUE: XR chest 1V portable Frontal view of the chest. CLINICAL INDICATION:Male, 56 years old with history of altered mental status; FINDINGS: Lungs/Pleura: There is no evidence of pleural effusion, focal consolidation, or pneumothorax. Pulmonary vascularity: Unremarkable. Heart/mediastinum: Cardiomediastinal silhouette is enlarged and stable. Musculoskeletal: No acute osseous pathology. IMPRESSION: No acute cardiopulmonary disease/process.
[2022-11-18 18:57] VITALS: PULSE 57; RESP 16
[2022-11-18 21:06] VITALS: BP 128/99
== END 2022-11-18 21:06 | disposition home or self-care (01) ==
LOC: SUPCPDRO 14:58 → EC 14:58
DX: E86.0 Dehydration (principal); I10 Essential (primary) hypertension; F41.9 Anxiety disorder, unspecified; Z88.0 Allergy status to penicillin; Z79.899 Other long term (current) drug therapy
CPT/HCPCS: 36415; 71045; 80053; 81003; 84484; 85025; 85610; 85730; 87040; 87635; 93005; 99285

== ENCOUNTER 2023-04-01 14:56 | Emergency (ER) | payer OTHER ==
[2023-04-01 15:06] VITALS: TEMP 100.7
[2023-04-01] MEDS ORDERED: SODIUM CHLORIDE 0.9% 1,000 ML IV STA (15:21)
[2023-04-01] MEDS ORDERED: IBUPROFEN 800 MG TAB PO STA (15:22)
--- NOTE | 2023-04-01 15:55 | ED ---
Fever HPI - General Chief Complaint: Fever Stated Complaint: Fever Time Seen by Provider: 04/01/23 15:20 Source: family, EMS, RN notes reviewed, old records reviewed Mode of arrival: EMS Limitations: no limitations - History of Present Illness Initial Comments: This is a 49-year-old male to the ER for evaluation of fever. Patient suffers from developmental delay and axis sick nonverbal. Patient has history of recurrent aspiration pneumonia and [facility] a [facility] with fever today. Patient has no known sick contacts known at the fci otherwise has fever or illness. Patient is unable to give history history obtained from caregiver, patient does say yes to everything MD Complaint: fever, malaise, weakness -: hour(s) Temperature Source: subjective, oral Associated Symptoms: chills, other (Significant diaphoresis) Treatments Prior to Arrival: Acetaminophen - Related Data Home Medications Medication Instructions Recorded Confirmed Ascorbic Acid [Vitamin C] 500 mg PO HS@199910/03/19 11/18/22 FLUoxetine HCL [PROzac] 80 mg PO DAILY@79910/03/19 11/18/22 Furosemide [Lasix] 40 mg PO DAILY@79910/03/19 11/18/22 Omeprazole 20 mg PO BID@07,199910/03/19 11/18/22 Vitamin E 400 unit PO HS@199910/03/19 11/18/22 polyethylene glycoL 3350 [Miralax] 17 gm PO DAILY@79910/03/19 11/18/22 Albuterol Inhaler [Ventolin Hfa 2 puff INHALATION RT-Q6H PRN 10/11/19 11/18/22 Inhaler] guaiFENesin SYRUP 100MG/5ML 200 mg PO TID PRN 10/11/19 11/18/22 [Robitussin] Donepezil HCl [Aricept] 10 mg PO HS@199909/13/22 11/18/22 Glucosam/Yoshi-Msm1/C/Kg/Bosw 1 tab PO DAILY@1800 09/13/22 11/18/22 [Glucosamine-Chondroitin Tablet] Ondansetron [Zofran] 4 mg PO Q8HR PRN 09/13/22 11/18/22 Pediatric Multivit No.203/Iron 2 tab PO DAILY@0809/13/22 11/18/22 [Flintstones with Iron Tab Chew] Potassium Chloride ER [K-Dur 20] 20 meq PO DAILY@0800 09/13/22 11/18/22 Ziprasidone [Geodon] 20 mg PO BID@0800,1800 09/13/22 11/18/22 Ziprasidone [Geodon] 80 mg PO BID@0800,1800 09/13/22 11/18/22 amLODIPine [Norvasc] 5 mg PO DAILY@0800 09/13/22 11/18/22 Cetirizine HCl [Zyrtec] 10 mg PO DAILY@179911/18/22 11/18/22 Ipratropium-Albuterol Nebulize 3 ml INHALATION RT-TID@11/18/22 11/18/22 [Duoneb 0.5 mg-3 mg/3 ml Soln] Montelukast [Singulair] 10 mg PO HS@199911/18/22 11/18/22 Nac 400mg 600 mg PO DAILY@79911/18/22 11/18/22 carvediloL 25 mg PO HS 11/18/22 11/18/22 guaiFENesin-DM 600/30MG [Mucinex 1 tab PO Q12HR PRN 11/18/22 11/18/22 Dm] hydroCHLOROthiazide 12.5 mg PO DAILY@79911/18/22 11/18/22 Previous Rx's Medication Instructions Recorded Azithromycin [Zithromax] 500 mg PO DAILY #625 ml 04/01/23 Cefdinir [Omnicef Oral Susp] 500 mg PO BID #200 ml 04/01/23 Allergies Allergy/AdvReac Type Severity Reaction Status Date / Time Penicillins Allergy Unknown Verified 04/01/23 15:04 Review of Systems ROS Statement: Those systems with pertinent positive or pertinent negative responses have been documented in the HPI. ROS Other: All systems not noted in ROS Statement are negative. Past Medical History Past Medical History: Hypertension Additional Past Medical History / Comment(s): autism-limited speech and short phrases, can become agitated and combative,intermittent vomiting mucus when eating-no pattern or with certain foods, Dementia History of Any Multi-Drug Resistant Organisms: None Reported Past Surgical History: No Surgical Hx Reported Past Anesthesia/Blood Transfusion Reactions: No Reported Reaction Additional Past Anesthesia/Blood Transfusion Reaction / Comment(s): never has had general anesthesia Past Psychological History: Anxiety Smoking Status: Never smoker Past Alcohol Use History: None Reported Past Drug Use History: None Reported - Past Family History Mother History Unknown: Yes Father Family Medical History: Cancer Additional Family Medical History / Comment(s): prostate General Exam Limitations: no limitations General appearance: alert, in no apparent distress, anxious Head exam: Present: atraumatic, normocephalic, normal inspection Eye exam: Present: normal appearance, PERRL, EOMI. Absent: scleral icterus, conjunctival injection, periorbital swelling ENT exam: Present: normal exam, mucous membranes moist Neck exam: Present: normal inspection. Absent: tenderness, meningismus, lymphadenopathy Respiratory exam: Present: normal lung sounds bilaterally. Absent: respiratory distress, wheezes, rales, rhonchi, stridor Cardiovascular Exam: Present: regular rate, normal rhythm, normal heart sounds. Absent: systolic murmur, diastolic murmur, rubs, gallop, clicks GI/Abdominal exam: Present: soft, normal bowel sounds. Absent: distended, tenderness, guarding, rebound, rigid Extremities exam: Present: normal inspection, full ROM, normal capillary refill. Absent: tenderness, pedal edema, joint swelling, calf tenderness Back exam: Present: normal inspection Neurological exam: Present: alert, oriented X3, CN II-XII intact Psychiatric exam: Present: normal affect, normal mood Skin exam: Present: warm, dry, intact, normal color. Absent: rash Course Vital Signs 04/01/23 04/01/23 15:00 20:51 Temperature 100.7 F H Pulse Rate 87 68 Respiratory 22 16 Rate Blood Pressure 147/83 138/83 O2 Sat by Pulse 95 96 Oximetry - Reevaluation(s) Reevaluation #1: 04/01/23 16:03 Medical record is reviewed Reevaluation #2: Patient showing improvement in fever here in the ER Reevaluation #3: Patient informed results questions answered Patient refusing hospital admission Reevaluation #4: 04/01/23 16:03 Was pt. sent in by a medical professional or institution (, PA, REGULATORY AFFAIRS COORDINATOR, urgent care, hospital, or detention...) When possible be specific @ -no Did you speak to anyone other than the patient for history (EMS, parent, family, police, friend...)? What history was obtained from this source @ -no Did you review nursing and triage notes (agree or disagree)? Why? @ -agree Are old charts reviewed (outside hosp., previous admission, EMS record, old EKG, old radiological studies, urgent care reports/EKG's, detention records)? Report findings @ -yes Differential Diagnosis (chest pain, altered mental status, abdominal pain women, abdominal pain men, vaginal bleeding, weakness, fever, dyspnea, syncope, headache, dizziness, GI bleed, back pain, seizure, CVA, palpatations, mental health, musculoskeletal)? @ -prior EKG interpreted by me (3pts min.). @ -no X-rays interpreted by me (1pt min.). @ -yes CT interpreted by me (1pt min.). @ -no U/S interpreted by me (1pt. min.). @ -no What testing was considered but not performed or refused? (CT, X-rays, U/S, labs)? Why? @ -none What meds were considered but not given or refused? Why? @ -none Did you discuss the management of the patient with other professionals (professionals i.e. , PA, REGULATORY AFFAIRS COORDINATOR, lab, RT, psych nurse, social insurance analyst, measuring clerk, teacher, booking police officer, case advocate)? Give summary @ -no Was smoking cessation discussed for >3mins.? @ -no Was critical care preformed (if so, how long)? @ -no Were there social determinants of health that impacted care today? How? (Homelessness, low income, unemployed, alcoholism, drug addiction, transportation, low edu. Level, literacy, decrease access to med. care, [facility], rehab)? @ -none Was there de-escalation of care discussed even if they declined (Discuss DNR or withdrawal of care, Hospice)? DNR status @ -no What co-morbidities impacted this encounter? (DM, HTN, Smoking, COPD, CAD, Cancer, CVA, ARF, Chemo, Hep., AIDS, mental health diagnosis, sleep apnea, morbid obesity)? @ -none Was patient admitted / discharged? Hospital course, mention meds given and route, prescriptions, significant lab abnormalities, going to OR and other pertinent info. @ - 57 male to the emergency department for evaluation of fever and pneumonia, patient refuses hospital admission will send home on antibiotics Discharged Undiagnosed new problem with uncertain prognosis? @ -no Drug Therapy requiring intensive monitoring for toxicity (Heparin, Nitro, Insulin, Cardizem)? @ -no Were any procedures done? @ -no Diagnosis/symptom? @ -Fever, pneumonia Acute, or Chronic, or Acute on Chronic? @ -Acute Uncomplicated (without systemic symptoms) or Complicated (systemic symptoms)? @ -Complicated Side effects of treatment? @ -no Exacerbation, Progression, or Severe Exacerbation? @ -exacerbation Poses a threat to life or bodily function? How? (Chest pain, [place], [place], pneumonia, PE, COPD, DKA, ARF, appy, cholecystitis, CVA, Diverticulitis, Homicidal, Suicidal, threat to staff... and all critical care pts) @ -yes with fever and sepsis, pneumonia and hypoxia Reevaluation #5: 04/01/23 16:03 Differential Fever: Pneumonia, viral URI, endocarditis, myocarditis, pericarditis, otitis, sinusitis, peritonsillar Abscess, retropharyngeal Abscess, epiglottitis, peritonitis, appendicitis, Tracie cystitis, diverticulitis, hepatitis, colitis, UTI, PID, TOA, pyelonephritis, prostatitis, epididymitis, meningitis, encephalitis, pulmonary embolism, CVA, thyroid storm, pancreatitis, adrenal crisis, cavernous sinus thrombosis, this is not meant to be an all-inclusive list. Medical Decision Making - Medical Decision Making 57 male to the emergency department for evaluation of fever and pneumonia, patient refuses hospital admission will send home on antibiotics - Lab Data Result diagrams: 04/01/23 15:41 04/01/23 15:41 Lab Results 04/01/23 04/01/23 04/01/23 Range/Units 15:41 15:41 15:41 WBC 13.8 H (3.8-10.6) k/uL RBC 4.08 L (4.30-5.90) m/uL Hgb 11.6 L (13.0-17.5) gm/dL Hct 34.3 L (39.0-53.0) % MCV 84.1 (80.0-100.0) fL MCH 28.5 (25.0-35.0) pg MCHC 33.9 (31.0-37.0) g/dL RDW 13.7 (11.5-15.5) % Plt Count 297 (150-450) k/uL MPV 7.1 Neutrophils % 85 % Lymphocytes % 5 % Monocytes % 6 % Eosinophils % 3 % Basophils % 0 % Neutrophils # 11.7 H (1.3-7.7) k/uL Lymphocytes # 0.7 L (1.0-4.8) k/uL Monocytes # 0.9 (0-1.0) k/uL Eosinophils # 0.4 (0-0.7) k/uL Basophils # 0.0 (0-0.2) k/uL Sodium 139 (137-145) mmol/L Potassium 3.5 (3.5-5.1) mmol/L Chloride 103 (98-107) mmol/L Carbon Dioxide 29 (22-30) mmol/L Anion Gap 7 mmol/L BUN 27 H (9-20) mg/dL Creatinine 0.97 (0.66-1.25) mg/dL Est GFR (CKD-EPI)AfAm >90 (>60 ml/min/1.73 sqM) Est GFR (CKD-EPI)NonAf 86 (>60 ml/min/1.73 sqM) Glucose 114 H (74-99) mg/dL Calcium 8.9 (8.4-10.2) mg/dL Phosphorus 2.8 (2.5-4.5) mg/dL Magnesium 1.9 (1.6-2.3) mg/dL Total Bilirubin 0.4 (0.2-1.3) mg/dL AST 40 (17-59) U/L ALT 39 (4-49) U/L Alkaline Phosphatase 85 (38-126) U/L Total Protein 6.6 (6.3-8.2) g/dL Albumin 3.5 (3.5-5.0) g/dL Urine Color Light Yellow Urine Appearance Clear (Clear) Urine pH 5.0 (5.0-8.0) Ur Specific [place] 1.017 (1.001-1.035) Urine Protein Negative (Negative) Urine Glucose (UA) Negative (Negative) Urine Ketones Negative (Negative) Urine Blood Negative (Negative) Urine Nitrite Negative (Negative) Urine Bilirubin Negative (Negative) Urine Urobilinogen <2.0 (<2.0) mg/dL Ur Leukocyte Esterase Negative (Negative) Influenza Type A (PCR) (Not Detectd) Influenza Type B (PCR) (Not Detectd) RSV (PCR) (Not Detectd) SARS-CoV-2 (PCR) (Not Detectd) 04/01/23 Range/Units 15:41 WBC (3.8-10.6) k/uL RBC (4.30-5.90) m/uL Hgb (13.0-17.5) gm/dL Hct (39.0-53.0) % MCV (80.0-100.0) fL MCH (25.0-35.0) pg MCHC (31.0-37.0) g/dL RDW (11.5-15.5) % Plt Count (150-450) k/uL MPV Neutrophils % % Lymphocytes % % Monocytes % % Eosinophils % % Basophils % % Neutrophils # (1.3-7.7) k/uL Lymphocytes # (1.0-4.8) k/uL Monocytes # (0-1.0) k/uL Eosinophils # (0-0.7) k/uL Basophils # (0-0.2) k/uL Sodium (137-145) mmol/L Potassium (3.5-5.1) mmol/L Chloride (98-107) mmol/L Carbon Dioxide (22-30) mmol/L Anion Gap mmol/L BUN (9-20) mg/dL Creatinine (0.66-1.25) mg/dL Est GFR (CKD-EPI)AfAm (>60 ml/min/1.73 sqM) Est GFR (CKD-EPI)NonAf (>60 ml/min/1.73 sqM) Glucose (74-99) mg/dL Calcium (8.4-10.2) mg/dL Phosphorus (2.5-4.5) mg/dL Magnesium (1.6-2.3) mg/dL Total Bilirubin (0.2-1.3) mg/dL AST (17-59) U/L ALT (4-49) U/L Alkaline Phosphatase (38-126) U/L Total Protein (6.3-8.2) g/dL Albumin (3.5-5.0) g/dL Urine Color Urine Appearance (Clear) Urine pH (5.0-8.0) Ur Specific [place] (1.001-1.035) Urine Protein (Negative) Urine Glucose (UA) (Negative) Urine Ketones (Negative) Urine Blood (Negative) Urine Nitrite (Negative) Urine Bilirubin (Negative) Urine Urobilinogen (<2.0) mg/dL Ur Leukocyte Esterase (Negative) Influenza Type A (PCR) Not Detected (Not Detectd) Influenza Type B (PCR) Not Detected (Not Detectd) RSV (PCR) Not Detected (Not Detectd) SARS-CoV-2 (PCR) Not Detected (Not Detectd) Disposition Clinical Impression: Altered mental status, Dementia, Cognitive developmental delay, Pneumonia Disposition: HOME SELF-CARE Condition: Fair Instructions (If sedation given, give patient instructions): Fever in Adults (ED), Community Acquired Pneumonia (ED) Prescriptions: Cefdinir [Omnicef Oral Susp] 500 mg PO BID #200 ml Azithromycin [Zithromax] 500 mg PO DAILY #625 ml Is patient prescribed a controlled substance at d/c from ED?: No Referrals: Christopher Estrada MD [Primary Care Provider] - 1-2 days Time of Disposition: 18:20
[2023-04-01 16:25] LABS: Basophils % (A) 0 %; Eosinophils # (A) 0.4 k/uL (0-0.7); Eosinophils % (A) 3 %; HCT 34.3 % (39.0-53.0); HGB 11.6 gm/dL (13.0-17.5); Lymphocytes # (A) 0.7 k/uL (1.0-4.8); Lymphocytes % (A) 5 %; MCH 28.5 pg (25.0-35.0); MCHC 33.9 g/dL (31.0-37.0); MCV 84.1 fL (80.0-100.0); Mean Platelet Volume 7.1; Monocytes # (A) 0.9 k/uL (0-1.0); Monocytes % (A) 6 %; Neutrophils # (A) 11.7 k/uL (1.3-7.7); Neutrophils % (A) 85 %; Platelet Count 297 k/uL (150-450); RBC 4.08 m/uL (4.30-5.90); RDW 13.7 % (11.5-15.5); WBC 13.8 k/uL (3.8-10.6)
[2023-04-01 16:34] LABS: ALT 39 U/L (4-49); AST 40 U/L (17-59); African American GFR (CKD) >90 (>60 ml/min/1.73 sqM); Albumin 3.5 g/dL (3.5-5.0); Alkaline Phosphatase 85 U/L (38-126); Anion Gap 7 mmol/L; Blood Urea Nitrogen 27 mg/dL (9-20); Calcium 8.9 mg/dL (8.4-10.2); Carbon Dioxide 29 mmol/L (22-30); Chloride 103 mmol/L (98-107); Glucose 114 mg/dL (74-99); Magnesium 1.9 mg/dL (1.6-2.3); Non-African American GFR(CKD) 86 (>60 ml/min/1.73 sqM); Phosphorus 2.8 mg/dL (2.5-4.5); Potassium 3.5 mmol/L (3.5-5.1); Sodium 139 mmol/L (137-145); Total Bilirubin 0.4 mg/dL (0.2-1.3); Total Protein 6.6 g/dL (6.3-8.2)
[2023-04-01 16:35] LABS: Appearance,Urine Clear (Clear); Bilirubin,Urine Negative (Negative); Blood,Urine Negative (Negative); Color,Urine Light Yellow; Glucose,Urine (UA) Negative (Negative); Ketones,Urine Negative (Negative); Leukocyte Esterase,Urine Negative (Negative); Nitrite,Urine Negative (Negative); Protein,Urine Negative (Negative); Specific Gravity,Urine 1.017 (1.001-1.035); Urobilinogen,Urine <2.0 mg/dL (<2.0)
[2023-04-01] MEDS: IBUPROFEN IV 800 MG in SODIUM CHLORIDE 0.9% 250 ML IV ONE ×2 (16:40→16:48)
--- NOTE | 2023-04-01 17:17 | XR ---
EXAMINATION TYPE: XR chest 1V portable DATE OF EXAM: 04/01/2023 HISTORY: Shortness of breath. COMPARISON: 11/18/2022 TECHNIQUE: Single view of the chest is submitted. FINDINGS: Demonstrated are scattered senescent parenchymal change. Perihilar and basilar infiltrates. Correlate for pneumonia. The heart is stable. Hilar and mediastinal structures are within normal limits. Degenerative changes are seen of the dorsal spine. IMPRESSION: 1. Perihilar and basilar infiltrates. Correlate for pneumonia.
[2023-04-01] MEDS ORDERED: cefTRIAXone IN SWFI 1,000 MG/10 ML SYRINGE IVP STA ×2 (18:11→19:11)
[2023-04-01] MEDS ORDERED: ACETAMINOPHEN ORAL SUSP 160 MG/5 ML CUP PO ONE (18:11)
[2023-04-01] MEDS ORDERED: AZITHROMYCIN 1,200 MG/30 ML BOTTLE PO ONE (18:30)
[2023-04-01] MEDS ORDERED: AZITHROMYCIN 1,200 MG/30 ML BOTTLE PO STA (20:06)
[2023-04-01] MEDS ORDERED: CEFDINIR ORAL SUSP 1,500 MG/60 ML BOTTLE PO ONE (20:30)
[2023-04-01 20:54] VITALS: BP 138/83; PULSE 68; RESP 16
== END 2023-04-01 20:53 | disposition home or self-care (01) ==
LOC: EC 14:56
DX: F84.0 Autistic disorder (principal); J18.9 Pneumonia, unspecified organism; I10 Essential (primary) hypertension; F41.9 Anxiety disorder, unspecified; Z79.899 Other long term (current) drug therapy; Z88.0 Allergy status to penicillin; Z20.822 Contact with and (suspected) exposure to COVID-19
CPT/HCPCS: 36415; 80053; 83735; 84100; 85025; 81003; 87040; 87636; 71045; 99284; 96365; 96366 ×3; 96375; J0696; J1741

== ENCOUNTER → 2023-05-28 | Outpatient (CLI) | payer OTHER ==
--- NOTE | 2023-05-28 15:10 | FL ---
EXAMINATION TYPE: FL barium swallow DATE OF EXAM: 05/28/2023 COMPARISON: NONE HISTORY: History of aspiration and pneumonia. coughs with eating. TECHNIQUE: Fluoroscopy. FINDINGS: FL time: 24 secs DAP: 50.37 Exam ended due to patient refusing to drink contrast.
== END | disposition home or self-care (01) ==
LOC: RADUSWWP 10:46
PROVIDERS: ATTEND Family Medicine
DX: J42 Unspecified chronic bronchitis (principal); R13.10 Dysphagia, unspecified; J31.0 Chronic rhinitis
CPT/HCPCS: 74220

== ENCOUNTER 2023-10-20 09:34 | Inpatient (IN) | payer OTHER ==
--- NOTE | 2023-10-20 09:43 | ED ---
SOB HPI - General Chief Complaint: Shortness of Breath Stated Complaint: SOB Time Seen by Provider: 10/20/23 09:34 Source: EMS, RN notes reviewed, Caregiver Mode of arrival: EMS Limitations: altered mental status - History of Present Illness Initial Comments: This is a 57 year old male who presents to the emergency department for shortness of breath. Caregiver at bedside states that he has a history of pneumonia, and started getting very short of breath this morning. He was having difficulty clearing his secretions with coughing. He does have albuterol breathing treatments ordered, but often refuses them. He was willing to have one this morning. He did have a chest x-ray yesterday, but they are unsure of the results. He did also have a fever this morning and was given Tylenol. Patient is autistic with very limited speech, and caregiver provides all of the history. MD Complaint: shortness of breath, cough - Related Data Home Medications Medication Instructions Recorded Confirmed Ascorbic Acid [Vitamin C] 500 mg PO HS@199910/03/19 10/20/23 FLUoxetine HCL [PROzac] 80 mg PO DAILY@79910/03/19 10/20/23 Omeprazole 20 mg PO BID@699,199910/03/19 10/20/23 Vitamin E 400 unit PO HS@199910/03/19 10/20/23 polyethylene glycoL 3350 [Miralax] 17 gm PO DAILY@79910/03/19 10/20/23 Albuterol Inhaler [Ventolin Hfa 2 puff INHALATION RT-Q6H PRN 10/11/19 10/20/23 Inhaler] guaiFENesin SYRUP 100MG/5ML 200 mg PO TID PRN 10/11/19 10/20/23 [Robitussin] Donepezil HCl [Aricept] 10 mg PO HS@199909/13/22 10/20/23 Glucosam/Yoshi-Msm1/C/Kg/Bosw 1 tab PO DAILY@199909/13/22 10/20/23 [Glucosamine-Chondroitin Tablet] Ondansetron [Zofran] 4 mg PO Q8HR PRN 09/13/22 10/20/23 Pediatric Multivit No.203/Iron 2 tab PO DAILY@79909/13/22 10/20/23 [Flintstones with Iron Tab Chew] Cetirizine HCl [Zyrtec] 10 mg PO DAILY@199911/18/22 10/20/23 Ipratropium-Albuterol Nebulize 3 ml INHALATION RT-QID@08,12,16,20 11/18/22 10/20/23 [Duoneb 0.5 mg-3 mg/3 ml Soln] Montelukast [Singulair] 10 mg PO HS@199911/18/22 10/20/23 guaiFENesin-DM 600/30MG [Mucinex 1 tab PO Q12HR PRN 11/18/22 10/20/23 Dm] hydroCHLOROthiazide 12.5 mg PO DAILY@0800 11/18/22 10/20/23 Acetaminophen Tab [Tylenol] 650 mg PO Q6H PRN 10/20/23 10/20/23 Brexpiprazole [Rexulti] 0.5 mg PO HS@199910/20/23 10/20/23 Brexpiprazole [Rexulti] 1 mg PO BID@0800,159910/20/23 10/20/23 Clobetasol Propionate [Temovate 1 applic TOPICAL DAILY PRN 10/20/23 10/20/23 0.05% Oint] Furosemide [Lasix] 20 mg PO BID@0800,159910/20/23 10/20/23 Ipratropium [place] 0.06%Nasal 1 spray EA NOSTRIL BID@0800,199910/20/23 10/20/23 [Atrovent Nasal 0.06%] Phenylephrine/Dm/Acetaminop/GG 20 ml PO TID PRN 10/20/23 10/20/23 [Mucinex Fast-Max Cold-Flu Liq] Potassium Chloride ER [K-Dur 10] 10 meq PO BID@0800,1600 10/20/23 10/20/23 carvediloL [Coreg] 12.5 mg PO BID@0800,199910/20/23 10/20/23 hydrOXYzine HCL [Atarax] 20 mg PO TID@0800,1600,199910/20/23 10/20/23 Allergies Allergy/AdvReac Type Severity Reaction Status Date / Time Penicillins Allergy Unknown Verified 10/20/23 11:53 Review of Systems ROS Statement: Those systems with pertinent positive or pertinent negative responses have been documented in the HPI. ROS Other: All systems not noted in ROS Statement are negative. Past Medical History Past Medical History: Hypertension, Pneumonia Additional Past Medical History / Comment(s): autism-limited speech and short phrases, can become agitated and combative,intermittent vomiting mucus when eating-no pattern or with certain foods, Dementia History of Any Multi-Drug Resistant Organisms: None Reported Past Surgical History: No Surgical Hx Reported Past Anesthesia/Blood Transfusion Reactions: No Reported Reaction Additional Past Anesthesia/Blood Transfusion Reaction / Comment(s): never has had general anesthesia Past Psychological History: Anxiety Smoking Status: Never smoker Past Alcohol Use History: None Reported Past Drug Use History: None Reported - Past Family History Mother History Unknown: Yes Father Family Medical History: Cancer Additional Family Medical History / Comment(s): prostate General Exam Limitations: altered mental status General appearance: alert, in no apparent distress Head exam: Present: atraumatic, normocephalic, normal inspection Respiratory exam: Present: decreased breath sounds, prolonged expiratory Cardiovascular Exam: Present: regular rate, normal rhythm, normal heart sounds. Absent: systolic murmur, diastolic murmur, rubs, gallop, clicks Neurological exam: Present: alert Skin exam: Present: warm, dry, intact, normal color. Absent: rash Course Vital Signs 10/20/23 10/20/23 10/20/23 09:34 09:44 10:11 Temperature 98.6 F Pulse Rate 70 Respiratory 22 24 Rate Blood Pressure 116/76 O2 Sat by Pulse 98 89 L Oximetry 10/20/23 10/20/23 10/20/23 10:43 10:58 11:07 Temperature Pulse Rate 64 58 L Respiratory Rate Blood Pressure O2 Sat by Pulse 92 L Oximetry 10/20/23 10/20/23 10/20/23 11:10 11:31 12:03 Temperature Pulse Rate 61 67 Respiratory 18 Rate Blood Pressure O2 Sat by Pulse 84 L 93 L 93 L Oximetry 10/20/23 10/20/23 10/20/23 14:28 15:20 16:39 Temperature 103 F H 98.6 F Pulse Rate 65 Respiratory 22 Rate Blood Pressure 129/71 O2 Sat by Pulse 94 L Oximetry 10/20/23 20:21 Temperature 98.0 F Pulse Rate 68 Respiratory 22 Rate Blood Pressure 116/68 O2 Sat by Pulse 95 Oximetry Medical Decision Making - Medical Decision Making This is a 57-year-old male who presents to the emergency department for coughing and shortness of breath. Was pt. sent in by a medical professional or institution? @ -No Did you speak to anyone other than the patient for history? @ -Caregiver provided all of the history. Did you review nursing and triage notes? @ -Yes, and I agree, it is accurate with regards to the patient's symptoms. Were old charts reviewed? @ -No Differential Diagnosis? @ -Differential Dyspnea: Coronary syndrome, arrhythmia, tamponade, asthma, COPD, pulmonary embolism, pneumonia, pneumothorax, pulmonary effusion, anaphylaxis, diabetic ketoacidosis, flailed chest, pulmonary contusion, diaphragmatic rupture, anemia, neuromuscular, this is not meant to be an all-inclusive list. EKG interpreted by me (3pts min.)? @ -EKG interpreted by me demonstrating the following: Sinus rhythm. Ventricular rate 65 bpm, IN interval 198 ms, QRS duration 120 ms, QTc 475 ms. X-rays interpreted by me (1pt min.)? @ -Chest x-ray obtained. My interpretation identifies a patchy density in the right lower lobe. CT interpreted by me (1pt min.)? @ -Not obtained U/S interpreted by me (1pt. min.)? @ -Not obtained What testing was considered but not performed? (CT, X-rays, U/S, labs)? Why? @ -None What meds were considered but not given? Why? @ -None Did you discuss the management of the patient with other professionals? @ -Yes, Dr. Helton, who accepts the patient for admission. Did you reconcile home meds? @ -Yes Was smoking cessation discussed for >3mins.? @ -No Was critical care preformed (if so, how long)? @ -No Were there social determinants of health that impacted care today? How? (Homelessness, low income, unemployed, alcoholism, drug addiction, transportation, low edu. Level, literacy, decrease access to med. care, fdc, rehab)? @ -No Was there de-escalation of care discussed even if they declined? (Discuss DNR or withdrawal of care, Hospice)? @ -No What co-morbidities impacted this encounter? (DM, HTN, Smoking, COPD, CAD, Cancer, CVA, Hep., AIDS, mental health diagnosis, sleep apnea, morbid obesity)? @ -Autism Was patient admitted / discharged? @ -Admitted. Lab work demonstrates an elevated BNP of 3410. Troponin 0.030. Patient is on Lasix but has no known history of CHF. Per caregiver, he has never had an echocardiogram. COVID, influenza, and RSV testing were negative. Chest x-ray identifies a patchy density in the right lower lobe that may reflect developing pneumonia. Patient had initially been on supplemental oxygen in the emergency department. This was discontinued, and the patient's oxygen saturation dropped to 84% on room air over the next few minutes and the supplemental oxygen was subsequently resumed. Patient admitted to medicine for pneumonia and hypoxia. He was started on the pneumonia protocol with ceftriaxone and azithromycin. Blood and sputum cultures obtained. Procalcitonin and CRP ordered with results pending at the time of admission. Serial troponins ordered as well. Undiagnosed new problem with uncertain prognosis? @ -None Drug Therapy requiring intensive monitoring for toxicity (Heparin, Nitro, Insulin, Cardizem)? @ -None Were any procedures done? @ -None Diagnosis/symptom? @ -Pneumonia, hypoxia Acute, or Chronic, or Acute on Chronic? @ -Acute Uncomplicated (without systemic symptoms) or Complicated (systemic symptoms)? @ -Complicated Side effects of treatment? @ -None Exacerbation, Progression, or Severe Exacerbation] @ -Not applicable Poses a threat to life or bodily function? @ -Yes This case was discussed in detail with the attending ED physician, Dr. Yoder. Presentation, findings, and treatment plan discussed in detail as well. - Lab Data Result diagrams: 10/20/23 09:47 10/20/23 09:47 Lab Results 10/20/23 10/20/23 10/20/23 Range/Units 09:47 09:47 09:47 WBC 9.6 (3.8-10.6) k/uL RBC 4.50 (4.30-5.90) m/uL Hgb 12.5 L (13.0-17.5) gm/dL Hct 37.4 L (39.0-53.0) % MCV 83.1 (80.0-100.0) fL MCH 27.9 (25.0-35.0) pg MCHC 33.5 (31.0-37.0) g/dL RDW 13.2 (11.5-15.5) % Plt Count 209 (150-450) k/uL MPV 7.5 Neutrophils % 86 % Lymphocytes % 6 % Monocytes % 6 % Eosinophils % 1 % Basophils % 0 % Neutrophils # 8.3 H (1.3-7.7) k/uL Lymphocytes # 0.5 L (1.0-4.8) k/uL Monocytes # 0.5 (0-1.0) k/uL Eosinophils # 0.1 (0-0.7) k/uL Basophils # 0.0 (0-0.2) k/uL PT 11.3 (10.0-12.5) sec INR 1.0 (<1.2) APTT 27.0 (22.0-30.0) sec Sodium 137 (137-145) mmol/L Potassium 3.2 L (3.5-5.1) mmol/L Chloride 102 (98-107) mmol/L Carbon Dioxide 29 (22-30) mmol/L Anion Gap 6 mmol/L BUN 21 H (9-20) mg/dL Creatinine 0.90 (0.66-1.25) mg/dL Est GFR (CKD-EPI)AfAm >90 (>60 ml/min/1.73 sqM) Est GFR (CKD-EPI)NonAf >90 (>60 ml/min/1.73 sqM) Glucose 128 H (74-99) mg/dL Plasma Lactic Acid Wilber (0.7-2.0) mmol/L Calcium 8.1 L (8.4-10.2) mg/dL Total Bilirubin 0.7 (0.2-1.3) mg/dL AST 39 (17-59) U/L ALT 41 (4-49) U/L Alkaline Phosphatase 87 (38-126) U/L Troponin I (0.000-0.034) ng/mL NT-Pro-B Natriuret Pep 3410 pg/mL Total Protein 6.3 (6.3-8.2) g/dL Albumin 3.5 (3.5-5.0) g/dL Influenza Type A (PCR) (Not Detectd) Influenza Type B (PCR) (Not Detectd) RSV (PCR) (Not Detectd) SARS-CoV-2 (PCR) (Not Detectd) 10/20/23 10/20/23 10/20/23 Range/Units 09:47 09:47 09:47 WBC (3.8-10.6) k/uL RBC (4.30-5.90) m/uL Hgb (13.0-17.5) gm/dL Hct (39.0-53.0) % MCV (80.0-100.0) fL MCH (25.0-35.0) pg MCHC (31.0-37.0) g/dL RDW (11.5-15.5) % Plt Count (150-450) k/uL MPV Neutrophils % % Lymphocytes % % Monocytes % % Eosinophils % % Basophils % % Neutrophils # (1.3-7.7) k/uL Lymphocytes # (1.0-4.8) k/uL Monocytes # (0-1.0) k/uL Eosinophils # (0-0.7) k/uL Basophils # (0-0.2) k/uL PT (10.0-12.5) sec INR (<1.2) APTT (22.0-30.0) sec Sodium (137-145) mmol/L Potassium (3.5-5.1) mmol/L Chloride (98-107) mmol/L Carbon Dioxide (22-30) mmol/L Anion Gap mmol/L BUN (9-20) mg/dL Creatinine (0.66-1.25) mg/dL Est GFR (CKD-EPI)AfAm (>60 ml/min/1.73 sqM) Est GFR (CKD-EPI)NonAf (>60 ml/min/1.73 sqM) Glucose (74-99) mg/dL Plasma Lactic Acid Wil[place] 0.9 (0.7-2.0) mmol/L Calcium (8.4-10.2) mg/dL Total Bilirubin (0.2-1.3) mg/dL AST (17-59) U/L ALT (4-49) U/L Alkaline Phosphatase (38-126) U/L Troponin I 0.030 (0.000-0.034) ng/mL NT-Pro-B Natriuret Pep pg/mL Total Protein (6.3-8.2) g/dL Albumin (3.5-5.0) g/dL Influenza Type A (PCR) Not Detected (Not Detectd) Influenza Type B (PCR) Not Detected (Not Detectd) RSV (PCR) Not Detected (Not Detectd) SARS-CoV-2 (PCR) Not Detected (Not Detectd) - Radiology Data Radiology results: report reviewed, image reviewed Disposition Clinical Impression: Pneumonia, Hypoxia, Elevated brain natriuretic peptide (BNP) level Disposition: ADMITTED IP TO THIS [facility] Time of Disposition: 12:46
[2023-10-20 10:13] LABS: Basophils % (A) 0 %; Eosinophils # (A) 0.1 k/uL (0-0.7); Eosinophils % (A) 1 %; HCT 37.4 % (39.0-53.0); HGB 12.5 gm/dL (13.0-17.5); Lymphocytes # (A) 0.5 k/uL (1.0-4.8); Lymphocytes % (A) 6 %; MCH 27.9 pg (25.0-35.0); MCHC 33.5 g/dL (31.0-37.0); MCV 83.1 fL (80.0-100.0); Mean Platelet Volume 7.5; Monocytes # (A) 0.5 k/uL (0-1.0); Monocytes % (A) 6 %; Neutrophils # (A) 8.3 k/uL (1.3-7.7); Neutrophils % (A) 86 %; Platelet Count 209 k/uL (150-450); RDW 13.2 % (11.5-15.5); WBC 9.6 k/uL (3.8-10.6)
[2023-10-20 10:20] LABS: ALT 41 U/L (4-49); AST 39 U/L (17-59); African American GFR (CKD) >90 (>60 ml/min/1.73 sqM); Albumin 3.5 g/dL (3.5-5.0); Alkaline Phosphatase 87 U/L (38-126); Anion Gap 6 mmol/L; Blood Urea Nitrogen 21 mg/dL (9-20); Calcium 8.1 mg/dL (8.4-10.2); Carbon Dioxide 29 mmol/L (22-30); Chloride 102 mmol/L (98-107); Glucose 128 mg/dL (74-99); Non-African American GFR(CKD) >90 (>60 ml/min/1.73 sqM); Potassium 3.2 mmol/L (3.5-5.1); Sodium 137 mmol/L (137-145); Total Bilirubin 0.7 mg/dL (0.2-1.3); Total Protein 6.3 g/dL (6.3-8.2)
[2023-10-20 10:23] LABS: Prothrombin Time 11.3 sec (10.0-12.5)
[2023-10-20 10:29] LABS: NT-Pro-B-Type Natriuretic Pept 3410 pg/mL
[2023-10-20] MEDS: guaiFENesin-DM 100-10MG/5ML 10 ML CUP PO STA (10:44)
[2023-10-20] MEDS: IPRATROPIUM-ALBUTEROL 3 ML NEB INHALATION STA (10:56)
--- NOTE | 2023-10-20 10:57 | XR ---
EXAMINATION TYPE: XR chest 2V DATE OF EXAM: 10/20/2023 COMPARISON: 04/01/2023 HISTORY: Shortness of breath TECHNIQUE: Frontal and lateral views of the chest are obtained. FINDINGS: Scattered senescent parenchymal changes noted. Hyperinflation compatible with COPD. Patchy density right lower lobe medially may reflect developing pneumonia. Correlate clinically and p rogress studies are recommended. Heart size is stable. Mediastinal structures are stable and grossly unremarkable. No evidence for hilar prominence. Degenerative changes dorsal spine. IMPRESSION: 1. Patchy density right lower lobe medially may reflect developing pneumonia. Correlate clinically an d progress studies are recommended.
[2023-10-20] MEDS ORDERED: PNEUMONIA PROTOCOL UTILIZED 1 EACH MISC PO PRN (11:25)
[2023-10-20] MEDS: guaiFENesin-DM 600/30MG 1 EACH TAB.ER.12H PO STA (12:14)
[2023-10-20] MEDS ORDERED: NALOXONE 0.4 MG/ML 1 ML VIAL IV PRN (12:46)
[2023-10-20] MEDS ORDERED: KETOROLAC 15 MG/ML 1 ML VIAL IVP PRN (12:46)
[2023-10-20] MEDS: AZITHROMYCIN 500 MG in SODIUM CHLORIDE 0.9% 250 ML IVPB STA (12:53)
[2023-10-20] MEDS: ONDANSETRON 4 MG/2 ML VIAL IVP PRN (14:38)
[2023-10-20] MEDS: ACETAMINOPHEN TAB 325 MG TAB PO PRN (15:24)
[2023-10-20] MEDS: MIDAZOLAM 1 MG/ML 5 ML VIAL IV STA (16:57)
[2023-10-20] MEDS ORDERED: CLOBETASOL PROP 0.05% OINT 15GM TOPICAL PRN (17:33)
[2023-10-20] MEDS ORDERED: [UNRECOGNIZED DRUG - OTHER] PO PRN (17:33)
[2023-10-20] MEDS ORDERED: guaiFENesin-DM 600/30MG 1 EACH TAB.ER.12H PO PRN (17:33)
[2023-10-20] MEDS ORDERED: ALBUTEROL HFA INHALER INHALATION PRN (17:33)
[2023-10-20] MEDS ORDERED: ACETAMINOPHEN TAB 325 MG TAB PO PRN (17:33)
[2023-10-20] MEDS ORDERED: ONDANSETRON 4 MG TAB PO PRN (17:33)
[2023-10-20] MEDS ORDERED: guaiFENesin SYRUP 100MG/5ML 200 MG/10 ML CUP PO PRN (17:33)
[2023-10-20] MEDS ORDERED: NON FORMULARY DRUG (Glucosam/Chon-Msm1/C/Mang/Bosw [Glucosamine-Chondroitin Tablet] 1 EACH PO SCH (20:00)
--- NOTE | 2023-10-20 20:17 | P.HPIM ---
History of Present Illness H&P Date: 10/20/23 Chief Complaint: Short of breath Patient is a 56-year-old male with history of obstructive sleep apnea, autism, hypertension, anxiety, GERD presented from an assisted living facility with- shortness of breath. Caregiver reported to ER physician that patient started getting short of breath this morning. Having trouble clearing his secretions and coughing. Patient has albuterol treatment but often refuses them. He had a fever this morning. Patient extremely limited speech. Review of systems limited because of patient underlying autism Social history: Assisted living. Physical examination: VITAL SIGNS: [103, 65, 22, 129 x 71, 84% room air] GENERAL: [BMI 30, laying in bed audibly congested a bit short of breath]. EYES: [Pupils equal. Conjunctiva roxie]l. HEENT: [External appearance of nose and ears normal, oral cavity grossly normal]. NECK: [JVD not raised; masses not palpable]. HEART: [First and second heart sounds are normal; no edema]. LUNGS:[ Respiratory rate increased, expiratory crackles]. ABDOMEN: [Soft, nontender, liver spleen not palpable, no masses palpable]. PSYCH: [Patient does really does not really speak unable to assess]l. MUSCULOSKELETAL:No Clubbing/cyanosis;muscles-grossly intact NEUROLOGICAL: [Cranial nerves grossly intact; no facial asymmetry, power and sensation grossly intact]. LYMPHATICS: [No lymph nodes palpable in the axilla and neck] INVESTIGATIONS, reviewed in the clinical context: October 19: White count 9.6 hemoglobin 12.5 platelets 209 lymphocyte 0.5 neutrophils 8.3 sodium 137 potassium 3.2 creatinine 0.9 Troponin I 0.030, 0.019 CRP 5.7 Influenza type A, B, RSV, COVID-19: Not detected EKG tracing personally reviewed by me-normal sinus rhythm. Some nonspecific ST T wave changes. Chest x-ray film personally reviewed by me-right basilar infiltrate Assessment and Plan: -Right basilar pneumonia suspect gram-negative organism Azithromycin. Ceftriaxone. -autism -Acute hypoxic respiratory failure secondary to pneumonia Supplemental oxygen -ANGELIKA Hypokalemia - Replace -Essential hypertension Coreg Mood disorder Prozac. -Cognitive impairment Aricept - Full code Past Medical History Past Medical History: Hypertension, Pneumonia Additional Past Medical History / Comment(s): autism-limited speech and short phrases, can become agitated and combative,intermittent vomiting mucus when eating-no pattern or with certain foods, Dementia History of Any Multi-Drug Resistant Organisms: None Reported Past Surgical History: No Surgical Hx Reported Past Anesthesia/Blood Transfusion Reactions: No Reported Reaction Additional Past Anesthesia/Blood Transfusion Reaction / Comment(s): never has had general anesthesia Past Psychological History: Anxiety Smoking Status: Never smoker Past Alcohol Use History: None Reported Past Drug Use History: None Reported - Past Family History Mother History Unknown: Yes Father Family Medical History: Cancer Additional Family Medical History / Comment(s): prostate Medications and Allergies Home Medications Medication Instructions Recorded Confirmed Type Ascorbic Acid [Vitamin C] 500 mg PO HS@199910/03/19 10/20/23 History FLUoxetine HCL [PROzac] 80 mg PO DAILY@79910/03/19 10/20/23 History Omeprazole 20 mg PO BID@699,199910/03/19 10/20/23 History Vitamin E 400 unit PO HS@199910/03/19 10/20/23 History polyethylene glycoL 3350 [Miralax] 17 gm PO DAILY@79910/03/19 10/20/23 History Albuterol Inhaler [Ventolin Hfa 2 puff INHALATION RT-Q6H PRN 10/11/19 10/20/23 History Inhaler] guaiFENesin SYRUP 100MG/5ML 200 mg PO TID PRN 10/11/19 10/20/23 History [Robitussin] Donepezil HCl [Aricept] 10 mg PO HS@199909/13/22 10/20/23 History Glucosam/Yoshi-Msm1/C/Kg/Bosw 1 tab PO DAILY@199909/13/22 10/20/23 History [Glucosamine-Chondroitin Tablet] Ondansetron [Zofran] 4 mg PO Q8HR PRN 09/13/22 10/20/23 History Pediatric Multivit No.203/Iron 2 tab PO DAILY@79909/13/22 10/20/23 History [Flintstones with Iron Tab Chew] Cetirizine HCl [Zyrtec] 10 mg PO DAILY@199911/18/22 10/20/23 History Ipratropium-Albuterol Nebulize 3 ml INHALATION RT-QID@08,12,16,20 11/18/2210/19/24 History [Duoneb 0.5 mg-3 mg/3 ml Soln] Montelukast [Singulair] 10 mg PO HS@199911/18/22 10/20/23 History guaiFENesin-DM 600/30MG [Mucinex 1 tab PO Q12HR PRN 11/18/22 10/20/23 History Dm] hydroCHLOROthiazide 12.5 mg PO DAILY@0800 11/18/22 10/20/23 History Acetaminophen Tab [Tylenol] 650 mg PO Q6H PRN 10/20/23 10/20/23 History Brexpiprazole [Rexulti] 0.5 mg PO HS@199910/20/23 10/20/23 History Brexpiprazole [Rexulti] 1 mg PO BID@0800,159910/20/23 10/20/23 History Clobetasol Propionate [Temovate 1 applic TOPICAL DAILY PRN 10/20/23 10/20/23 History 0.05% Oint] Furosemide [Lasix] 20 mg PO BID@0800,1600 10/20/23 10/20/23 History Ipratropium [place] 0.06%Nasal 1 spray EA NOSTRIL BID@0800,199910/20/23 10/20/23 History [Atrovent Nasal 0.06%] Phenylephrine/Dm/Acetaminop/GG 20 ml PO TID PRN 10/20/23 10/20/23 History [Mucinex Fast-Max Cold-Flu Liq] Potassium Chloride ER [K-Dur 10] 10 meq PO BID@0800,1600 10/20/23 10/20/23 History carvediloL [Coreg] 12.5 mg PO BID@0800,199910/20/23 10/20/23 History hydrOXYzine HCL [Atarax] 20 mg PO TID@0800,1600,199910/20/23 10/20/23 History Allergies Allergy/AdvReac Type Severity Reaction Status Date / Time Penicillins Allergy Unknown Verified 10/20/23 11:53 Physical Exam Vitals: Vital Signs Temp Pulse Resp BP Pulse Ox 10/20/23 16:39 98.6 F 10/20/23 15:20 103 F H 10/20/23 14:28 65 22 129/71 94 L 10/20/23 12:03 93 L 10/20/23 11:31 67 93 L 10/20/23 11:10 61 18 84 L 10/20/23 11:07 58 L 10/20/23 10:58 64 10/20/23 10:43 92 L 10/20/23 10:11 24 10/20/23 09:44 89 L 10/20/23 09:34 98.6 F 70 22 116/76 98 Intake and Output 10/20/23 10/20/23 10/20/23 06:59 14:59 22:59 Intake Total 150 Balance 150 Intake: Oral 150 Other: # Voids 1 # Bowel Movements 0 Weight 97.522 kg Results CBC & Chem 7: 10/20/23 09:47 10/20/23 09:47 Labs: Abnormal Lab Results - Last 24 Hours (Table) 10/20/23 10/20/23 10/20/23 Range/Units 09:47 09:47 11:40 Hgb 12.5 L (13.0-17.5) gm/dL Hct 37.4 L (39.0-53.0) % Neutrophils # 8.3 H (1.3-7.7) k/uL Lymphocytes # 0.5 L (1.0-4.8) k/uL Potassium 3.2 L (3.5-5.1) mmol/L BUN 21 H (9-20) mg/dL Glucose 128 H (74-99) mg/dL Calcium 8.1 L (8.4-10.2) mg/dL C-Reactive Protein 5.7 H (<1.0) mg/dL Thrombosis Risk Factor Assmnt - Choose All That Apply Any of the Below Risk Factors Present?: Yes Each Factor Represents 1 point: Age 41-60 years, Serious lung disease incl. pneumonia (< 1month) Other Risk Factors: No Other congenital or acquired thrombophilia - If yes, enter type in comment: No Thrombosis Risk Factor Assessment Total Risk Factor Score: 2 Thrombosis Risk Factor Assessment Level: Low Risk
[2023-10-20] MEDS: IPRATROPIUM-ALBUTEROL 3 ML NEB INHALATION SCH (20:32)
[2023-10-20] MEDS: Brexpiprazole [Rexulti] 1 MG Tablet PO SCH (21:47)
[2023-10-20] MEDS: hydrOXYzine HCL 10 MG TAB PO SCH (21:52)
[2023-10-20] MEDS: POTASSIUM CHLORIDE ER 20 MEQ TAB.ER PO STA (21:53)
[2023-10-20] MEDS: ASCORBIC ACID 500 MG TAB PO SCH (21:53)
[2023-10-20] MEDS: VITAMIN E (DL,TOCOPHERYL ACET) 400 UNIT (180 MG) CAP PO SCH (21:53)
[2023-10-20] MEDS: LORATADINE 10 MG TAB PO SCH (21:53)
[2023-10-20] MEDS: DONEPEZIL 10 MG TAB PO SCH (21:53)
[2023-10-20] MEDS: MONTELUKAST 10 MG TAB PO SCH (21:53)
[2023-10-20] MEDS: carvediloL 12.5 MG TAB PO SCH (21:54)
[2023-10-20] MEDS: IPRATROPIUM BROMIDE 0.06% NASAL SPRAY (15 ML) EA NOSTRIL SCH (21:54)
[2023-10-20] MEDS: ENOXAPARIN 40 MG/0.4 ML SYRINGE SQ SCH (22:02)
[2023-10-21] MEDS: PANTOPRAZOLE 40 MG TABLET PO SCH (06:34)
[2023-10-21] MEDS: hydroCHLOROthiazide 12.5 MG CAP PO SCH (08:12)
[2023-10-21] MEDS: MULTIVITAMINS, THERA 1 EACH TAB PO SCH (08:12)
[2023-10-21] MEDS: FLUoxetine HCL 20 MG CAP PO SCH (08:12)
[2023-10-21] MEDS: polyethylene glycoL 3350 17 GM POWD.PACK PO SCH (08:12)
[2023-10-21] MEDS: POTASSIUM CHLORIDE ER 10 MEQ TAB.ER.PRT PO SCH (08:12)
[2023-10-21] MEDS: AZITHROMYCIN 500 MG TAB PO SCH (08:13)
[2023-10-21] MEDS: FUROSEMIDE 20 MG TAB PO SCH (08:13)
[2023-10-21] MEDS: Brexpiprazole [Rexulti] 1 MG Tablet PO SCH (08:14)
--- NOTE | 2023-10-21 16:59 | P.PN ---
Progress Note - Text Progress Note Date: 10/21/23 Chief Complaint: Short of breath Patient is a 56-year-old male with history of obstructive sleep apnea, autism, hypertension, anxiety, GERD presented from an assisted living facility with- shortness of breath. Caregiver reported to ER physician that patient started getting short of breath this morning. Having trouble clearing his secretions and coughing. Patient has albuterol treatment but often refuses them. He had a fever this morning. Joshua lopez extremely limited speech. October 20: Admitted with pneumonia started on ceftriaxone azithromycin. Acute hypoxic respiratory failure. Saw patient earlier today. Had all his breakfast. No fever today. Pulse ox of 92%. Appears more restful. Active Medications Acetaminophen (Acetaminophen Tab 325 Mg Tab) 650 mg PO Q6H PRN PRN Reason: Fever and/ or Pain Albuterol Sulfate (Albuterol Hfa Inhaler) 2 puff INHALATION RT-Q6H PRN PRN Reason: Wheezing Albuterol/Ipratropium (Ipratropium-Albuterol 3 Ml Neb) 3 ml INHALATION RT- QID@08,12,16,20 [facility] Last Admin: 10/21/23 16:48 Dose: Not Given Ascorbic Acid (Ascorbic Acid 500 Mg Tab) 500 mg PO HS@1999 [facility] Last Admin: 10/20/23 21:53 Dose: 500 mg Azithromycin (Azithromycin 500 Mg Tab) 500 mg PO DAILY [facility]; Protocol Stop: 10/22/23 09:01 Last Admin: 10/21/23 08:13 Dose: 500 mg Carvedilol (Carvedilol 12.5 Mg Tab) 12.5 mg PO BID@ [facility] Last Admin: 10/21/23 08:13 Dose: 12.5 mg Clobetasol Propionate (Clobetasol Prop 0.05% Oint 15gm) 1 applic TOPICAL DAILY PRN; Protocol PRN Reason: SCALY AREAS TRUNK/EXTREMITIES Donepezil HCl (Donepezil 10 Mg Tab) 10 mg PO HS@1999 [facility] Last Admin: 10/20/23 21:53 Dose: 10 mg Enoxaparin Sodium (Enoxaparin 40 Mg/0.4 Ml Syringe) 40 mg SQ DAILY [facility] Last Admin: 10/21/23 08:13 Dose: 40 mg Fluoxetine HCl (Fluoxetine Hcl 20 Mg Cap) 80 mg PO DAILY@0800 [facility] Last Admin: 10/21/23 08:12 Dose: 80 mg Furosemide (Furosemide 20 Mg Tab) 20 mg PO BID@0800,1600 [facility] Last Admin: 10/21/23 08:13 Dose: 20 mg Guaifenesin (Guaifenesin Syrup 100mg/5ml 200 Mg/10 Ml Cup) 200 mg PO TID PRN PRN Reason: Cough Guaifenesin/Dextromethorphan (Guaifenesin-Dm 600/30mg 1 Each Tab.Er.12h) 1 each PO Q12HR PRN PRN Reason: Congestion Hydrochlorothiazide (Hydrochlorothiazide 12.5 Mg Cap) 12.5 mg PO DAILY@08 [facility] Last Admin: 10/21/23 08:12 Dose: 12.5 mg Hydroxyzine HCl (Hydroxyzine Hcl 10 Mg Tab) 20 mg PO TID@08,1599,1999 [facility] Last Admin: 10/21/23 08:14 Dose: 20 mg Ceftriaxone Sodium 2 gm/ (Sodium Chloride) 50 mls @ 100 mls/hr IVPB Q24HR [facility]; Protocol Stop: 10/24/23 09:29 Last Admin: 10/21/23 08:12 Dose: 100 mls/hr Ipratropium [place] (Ipratropium [place] 0.06% Nasal [place] (15 Ml)) 1 spray EA NOSTRIL BID@ [facility] Last Admin: 10/21/23 14:25 Dose: Not Given Ketorolac Tromethamine (Ketorolac 15 Mg/Ml 1 Ml Vial) 15 mg IVP Q6HR PRN PRN Reason: Moderate Pain (Scale 4 to 6) Stop: 10/23/23 12:47 Loratadine (Loratadine 10 Mg Tab) 10 mg PO DAILY@1999 [facility] Last Admin: 10/20/23 21:53 Dose: 10 mg Miscellaneous Information (Pneumonia Protocol Utilized 1 Each Misc) 1 each PO ONCE PRN PRN Reason: Per Protocol Montelukast Sodium (Montelukast 10 Mg Tab) 10 mg PO HS@1999 [facility] Last Admin: 10/20/23 21:53 Dose: 10 mg Multivitamins (Multivitamins, Thera 1 Each Tab) 1 each PO DAILY@0800 [facility] Last Admin: 10/21/23 08:12 Dose: 1 each Naloxone HCl (Naloxone 0.4 Mg/Ml 1 Ml Vial) 0.2 mg IV Q2M PRN PRN Reason: Opioid Reversal Brexpiprazole (Rexulti 1 Mg Tablet) 0.5 mg PO HS@1999 [facility] Last Admin: 10/20/23 21:47 Dose: Not Given Brexpiprazole (Rexulti 1 Mg Tablet) 1 mg PO BID@0800,1600 [facility] Last Admin: 10/21/23 14:25 Dose: Not Given Ondansetron HCl (Ondansetron 4 Mg/2 Ml Vial) 4 mg IVP Q8HR PRN PRN Reason: Nausea And Vomiting Last Admin: 10/20/23 14:38 Dose: 4 mg Ondansetron HCl (Ondansetron 4 Mg Tab) 4 mg PO Q8HR PRN PRN Reason: Nausea And Vomiting Pantoprazole Sodium (Pantoprazole 40 Mg Tablet) 40 mg PO DAILY@07 [facility] Last Admin: 10/21/23 06:34 Dose: 40 mg Polyethylene Glycol (Polyethylene Glycol 3350 17 Gm Powd.Pack) 17 gm PO DAILY@0800 [facility] Last Admin: 10/21/23 08:12 Dose: 17 gm Potassium Chloride (Potassium Chloride Er 10 Meq Tab.Er.Prt) 10 meq PO BID@0800,1600 [facility] Last Admin: 10/21/23 08:12 Dose: 10 meq Vitamin E (Vitamin E (Dl,Tocopheryl Acet) 400 Unit (180 Mg) Cap) 400 unit PO HS@1999 [facility] Last Admin: 10/20/23 21:53 Dose: 400 unit Social history: Assisted living. Physical examination: VITAL SIGNS: Afebrile, 85, 20, 144/89, 92% room air GENERAL: Laying in bed, not congested. EYES: Pupils equal. Conjunctiva roxie l. HEENT: External appearance of nose and ears normal, oral cavity grossly normal. NECK: JVD not raised; masses not palpable. HEART: First and second heart sounds are normal; no edema. LUNGS: Respiratory rate i normal decreased breath sounds. ABDOMEN: Soft, nontender, liver spleen not palpable, no masses palpable. PSYCH: Patient does really does not really speak unable to assess l. MUSCULOSKELETAL:No Clubbing/cyanosis;muscles-grossly intact INVESTIGATIONS, reviewed in the clinical context: October 20: Procalcitonin 0.68 October 19: White count 9.6 hemoglobin 12.5 platelets 209 lymphocyte 0.5 neutrophils 8.3 sodium 137 potassium 3.2 creatinine 0.9 Troponin I 0.030, 0.019 CRP 5.7 Influenza type A, B, RSV, COVID-19: Not detected EKG tracing personally reviewed by me-normal sinus rhythm. Some nonspecific ST T wave changes. Chest x-ray film personally reviewed by me-right basilar infiltrate Assessment and Plan: -Right basilar pneumonia suspect gram-negative organism Azithromycin. Ceftriaxone. -autism -Acute hypoxic respiratory failure secondary to pneumonia Supplemental oxygen -ANGELIKA Hypokalemia - Replace -Essential hypertension Coreg Mood disorder Prozac. -Cognitive impairment Aricept - Full code Continue with antibiotics. Other medications. Eating well. Past Medical History Past Medical History: Hypertension, Pneumonia Additional Past Medical History / Comment(s): autism-limited speech and short phrases, can become agitated and combative,intermittent vomiting mucus when eating-no pattern or with certain foods, Dementia History of Any Multi-Drug Resistant Organisms: None Reported Past Surgical History: No Surgical Hx Reported Past Anesthesia/Blood Transfusion Reactions: No Reported Reaction Additional Past Anesthesia/Blood Transfusion Reaction / Comment(s): never has had general anesthesia Past Psychological History: Anxiety Smoking Status: Never smoker Past Alcohol Use History: None Reported Past Drug Use History: None Reported
[2023-10-22 06:42] LABS: Basophils % (A) 0 %; Eosinophils % (A) 0 %; HCT 37.1 % (39.0-53.0); HGB 12.1 gm/dL (13.0-17.5); Lymphocytes # (A) 0.8 k/uL (1.0-4.8); Lymphocytes % (A) 10 %; MCH 27.4 pg (25.0-35.0); MCHC 32.7 g/dL (31.0-37.0); MCV 83.6 fL (80.0-100.0); Mean Platelet Volume 7.6; Monocytes # (A) 0.4 k/uL (0-1.0); Monocytes % (A) 6 %; Neutrophils % (A) 81 %; Platelet Count 175 k/uL (150-450); RBC 4.44 m/uL (4.30-5.90); RDW 13.2 % (11.5-15.5); WBC 7.4 k/uL (3.8-10.6)
[2023-10-22 06:54] LABS: African American GFR (CKD) >90 (>60 ml/min/1.73 sqM); Anion Gap 7 mmol/L; Blood Urea Nitrogen 20 mg/dL (9-20); Calcium 8.1 mg/dL (8.4-10.2); Carbon Dioxide 27 mmol/L (22-30); Chloride 99 mmol/L (98-107); Glucose 111 mg/dL (74-99); Non-African American GFR(CKD) >90 (>60 ml/min/1.73 sqM); Potassium 3.2 mmol/L (3.5-5.1); Sodium 133 mmol/L (137-145)
--- NOTE | 2023-10-22 15:26 | P.PN ---
Progress Note - Text Progress Note Date: 10/22/23 Chief Complaint: Short of breath Patient is a 56-year-old male with history of obstructive sleep apnea, autism, hypertension, anxiety, GERD presented from an assisted living facility with- shortness of breath. Caregiver reported to ER physician that patient started getting short of breath this morning. Having trouble clearing his secretions and coughing. Patient has albuterol treatment but often refuses them. He had a fever this morning. Joshua lopez extremely limited speech. October 20: Admitted with pneumonia started on ceftriaxone azithromycin. Acute hypoxic respiratory failure. Saw patient earlier today. Had all his breakfast. No fever today. Pulse ox of 92%. Appears more restful. October 21: IV got pulled out. Patient not allowing it to be placed. Ceftriaxone changed to IM. Significant nasal congestion. Oral intake good. Active Medications Acetaminophen (Acetaminophen Tab 325 Mg Tab) 650 mg PO Q6H PRN PRN Reason: Fever and/ or Pain Albuterol Sulfate (Albuterol Hfa Inhaler) 2 puff INHALATION RT-Q6H PRN PRN Reason: Wheezing Albuterol/Ipratropium (Ipratropium-Albuterol 3 Ml Neb) 3 ml INHALATION RT- QID@08,12,16,20 [facility] Last Admin: 10/22/23 15:21 Dose: Not Given Ascorbic Acid (Ascorbic Acid 500 Mg Tab) 500 mg PO HS@1999 [facility] Last Admin: 10/21/23 20:55 Dose: 500 mg Carvedilol (Carvedilol 12.5 Mg Tab) 12.5 mg PO BID@799,1999 [facility] Last Admin: 10/22/23 09:05 Dose: 12.5 mg Ceftriaxone Sodium (Ceftriaxone 2 Gm Vial) 2 gm IM Q24HR [facility]; Protocol Stop: 10/24/23 09:01 Clobetasol Propionate (Clobetasol Prop 0.05% Oint 15gm) 1 applic TOPICAL DAILY PRN; Protocol PRN Reason: SCALY AREAS TRUNK/EXTREMITIES Donepezil HCl (Donepezil 10 Mg Tab) 10 mg PO HS@1999 [facility] Last Admin: 10/21/23 20:55 Dose: 10 mg Enoxaparin Sodium (Enoxaparin 40 Mg/0.4 Ml Syringe) 40 mg SQ DAILY [facility] Last Admin: 10/22/23 09:06 Dose: 40 mg Fluoxetine HCl (Fluoxetine Hcl 20 Mg Cap) 80 mg PO DAILY@0800 [facility] Last Admin: 10/22/23 09:05 Dose: 80 mg Furosemide (Furosemide 20 Mg Tab) 20 mg PO BID@0800,1599 [facility] Last Admin: 10/22/23 09:05 Dose: 20 mg Guaifenesin (Guaifenesin Syrup 100mg/5ml 200 Mg/10 Ml Cup) 200 mg PO TID PRN PRN Reason: Cough Guaifenesin/Dextromethorphan (Guaifenesin-Dm 600/30mg 1 Each Tab.Er.12h) 1 each PO Q12HR PRN PRN Reason: Congestion Hydrochlorothiazide (Hydrochlorothiazide 12.5 Mg Cap) 12.5 mg PO DAILY@08 [facility] Last Admin: 10/22/23 09:05 Dose: 12.5 mg Hydroxyzine HCl (Hydroxyzine Hcl 10 Mg Tab) 20 mg PO TID@799,1599,1999 [facility] Last Admin: 10/22/23 09:04 Dose: 20 mg Ipratropium [place] (Ipratropium [place] 0.06% Nasal [place] (15 Ml)) 1 spray EA NOSTRIL BID@ [facility] Last Admin: 10/22/23 09:06 Dose: 1 spray Ketorolac Tromethamine (Ketorolac 15 Mg/Ml 1 Ml Vial) 15 mg IVP Q6HR PRN PRN Reason: Moderate Pain (Scale 4 to 6) Stop: 10/23/23 12:47 Miscellaneous Information (Pneumonia Protocol Utilized 1 Each Misc) 1 each PO ONCE PRN PRN Reason: Per Protocol Montelukast Sodium (Montelukast 10 Mg Tab) 10 mg PO HS@1999 [facility] Last Admin: 10/21/23 20:55 Dose: 10 mg Multivitamins (Multivitamins, Thera 1 Each Tab) 1 each PO DAILY@08 [facility] Last Admin: 10/22/23 09:04 Dose: 1 each Naloxone HCl (Naloxone 0.4 Mg/Ml 1 Ml Vial) 0.2 mg IV Q2M PRN PRN Reason: Opioid Reversal Brexpiprazole [ (Rexulti] 1 Mg Tablet) 0.5 mg PO HS@1999 [facility] Last Admin: 10/21/23 20:58 Dose: Not Given Brexpiprazole [ (Rexulti] 1 Mg Tablet) 1 mg PO BID@0800,1600 [facility] Last Admin: 10/22/23 09:06 Dose: Not Given Ondansetron HCl (Ondansetron 4 Mg/2 Ml Vial) 4 mg IVP Q8HR PRN PRN Reason: Nausea And Vomiting Last Admin: 10/20/23 14:38 Dose: 4 mg Ondansetron HCl (Ondansetron 4 Mg Tab) 4 mg PO Q8HR PRN PRN Reason: Nausea And Vomiting Pantoprazole Sodium (Pantoprazole 40 Mg Tablet) 40 mg PO DAILY@0730 [facility] Last Admin: 10/22/23 09:04 Dose: 40 mg Polyethylene Glycol (Polyethylene Glycol 3350 17 Gm Powd.Pack) 17 gm PO DAILY@0800 [facility] Last Admin: 10/22/23 09:06 Dose: Not Given Potassium Chloride (Potassium Chloride Er 10 Meq Tab.Er.Prt) 10 meq PO BID@0800,1600 [facility] Last Admin: 10/22/23 09:05 Dose: 10 meq Vitamin E (Vitamin E (Dl,Tocopheryl Acet) 400 Unit (180 Mg) Cap) 400 unit PO HS@1999 [facility] Last Admin: 10/21/23 20:55 Dose: 400 unit Social history: Assisted living. Physical examination: VITAL SIGNS: 97.3, 63, 18, 164/86, 92% room air GENERAL: Laying in bed, nasal congestion. Slightly irritated EYES: Pupils equal. Conjunctiva roxie l. HEENT: External appearance of nose and ears normal, oral cavity grossly normal. Nasal congestion NECK: JVD not raised; masses not palpable. HEART: First and second heart sounds are normal; no edema. LUNGS: Respiratory rate i normal decreased breath sounds. ABDOMEN: Soft, nontender, liver spleen not palpable, no masses palpable. PSYCH: Patient does really does not really speak unable to assess l. MUSCULOSKELETAL:No Clubbing/cyanosis;muscles-grossly intact INVESTIGATIONS, reviewed in the clinical context: October 21: White count 7.4 hemoglobin 12.1 potassium 3.2 creatinine 0.77 October 20: Procalcitonin 0.68 October 19: White count 9.6 hemoglobin 12.5 platelets 209 lymphocyte 0.5 neutrophils 8.3 sodium 137 potassium 3.2 creatinine 0.9 Troponin I 0.030, 0.019 CRP 5.7 Influenza type A, B, RSV, COVID-19: Not detected EKG tracing personally reviewed by me-normal sinus rhythm. Some nonspecific ST T wave changes. Chest x-ray film personally reviewed by me-right basilar infiltrate Assessment and Plan: -Right basilar pneumonia suspect gram-negative organism Azithromycin. Ceftriaxone. -autism -Acute hypoxic respiratory failure secondary to pneumonia Supplemental oxygen -ANGELIKA Hypokalemia - Replace -Essential hypertension Coreg Mood disorder Prozac. -Cognitive impairment Aricept - Full code Continue with ceftriaxone and Zithromax. Add Claritin-D. Past Medical History Past Medical History: Hypertension, Pneumonia Additional Past Medical History / Comment(s): autism-limited speech and short phrases, can become agitated and combative,intermittent vomiting mucus when eating-no pattern or with certain foods, Dementia History of Any Multi-Drug Resistant Organisms: None Reported Past Surgical History: No Surgical Hx Reported Past Anesthesia/Blood Transfusion Reactions: No Reported Reaction Additional Past Anesthesia/Blood Transfusion Reaction / Comment(s): never has had general anesthesia Past Psychological History: Anxiety Smoking Status: Never smoker Past Alcohol Use History: None Reported Past Drug Use History: None Reported
[2023-10-22] MEDS: cefTRIAXone 2 GM VIAL IM SCH (15:33)
[2023-10-22] MEDS: LORATADINE-PSEUDOEPH 5-120 MG 1 EACH TAB.ER.12H PO SCH (20:40)
[2023-10-23] MEDS: LIDOCAINE 1% INJ 10MG/ML (20 ML MDV) ONE (09:57)
--- NOTE | 2023-10-23 13:57 | P.PN ---
Progress Note - Text Progress Note Date: 10/23/23 Chief Complaint: Short of breath Patient is a 56-year-old male with history of obstructive sleep apnea, autism, hypertension, anxiety, GERD presented from an assisted living facility with- shortness of breath. Caregiver reported to ER physician that patient started getting short of breath this morning. Having trouble clearing his secretions and coughing. Patient has albuterol treatment but often refuses them. He had a fever this morning. Joshua lopez extremely limited speech. October 20: Admitted with pneumonia started on ceftriaxone azithromycin. Acute hypoxic respiratory failure. Saw patient earlier today. Had all his breakfast. No fever today. Pulse ox of 92%. Appears more restful. October 21: IV got pulled out. Patient not allowing it to be placed. Ceftriaxone changed to IM. Significant nasal congestion. Oral intake good. October 22: Doing better. Getting IM ceftriaxone. Refuses put his oxygen on. Oxygen between 88 to 91%. Eating fair. Active Medications Acetaminophen (Acetaminophen Tab 325 Mg Tab) 650 mg PO Q6H PRN PRN Reason: Fever and/ or Pain Albuterol Sulfate (Albuterol Hfa Inhaler) 2 puff INHALATION RT-Q6H PRN PRN Reason: Wheezing Albuterol/Ipratropium (Ipratropium-Albuterol 3 Ml Neb) 3 ml INHALATION RT- QID@08,12,16,20 [facility] Last Admin: 10/23/23 12:54 Dose: Not Given Ascorbic Acid (Ascorbic Acid 500 Mg Tab) 500 mg PO HS@1999 [facility] Last Admin: 10/22/23 20:35 Dose: 500 mg Carvedilol (Carvedilol 12.5 Mg Tab) 12.5 mg PO BID@ [facility] Last Admin: 10/23/23 09:56 Dose: 12.5 mg Ceftriaxone Sodium (Ceftriaxone 2 Gm Vial) 2 gm IM Q24HR [facility]; Protocol Stop: 10/24/23 09:01 Last Admin: 10/23/23 09:55 Dose: 2 gm Clobetasol Propionate (Clobetasol Prop 0.05% Oint 15gm) 1 applic TOPICAL DAILY PRN; Protocol PRN Reason: SCALY AREAS TRUNK/EXTREMITIES Donepezil HCl (Donepezil 10 Mg Tab) 10 mg PO HS@1999 [facility] Last Admin: 10/22/23 20:35 Dose: 10 mg Enoxaparin Sodium (Enoxaparin 40 Mg/0.4 Ml Syringe) 40 mg SQ DAILY [facility] Last Admin: 10/23/23 09:55 Dose: 40 mg Fluoxetine HCl (Fluoxetine Hcl 20 Mg Cap) 80 mg PO DAILY@0800 [facility] Last Admin: 10/23/23 09:56 Dose: 80 mg Furosemide (Furosemide 20 Mg Tab) 20 mg PO BID@0800,1600 [facility] Last Admin: 10/23/23 09:55 Dose: 20 mg Guaifenesin (Guaifenesin Syrup 100mg/5ml 200 Mg/10 Ml Cup) 200 mg PO TID PRN PRN Reason: Cough Guaifenesin/Dextromethorphan (Guaifenesin-Dm 600/30mg 1 Each Tab.Er.12h) 1 each PO Q12HR PRN PRN Reason: Congestion Hydrochlorothiazide (Hydrochlorothiazide 12.5 Mg Cap) 12.5 mg PO DAILY@0800 [facility] Last Admin: 10/23/23 09:57 Dose: 12.5 mg Hydroxyzine HCl (Hydroxyzine Hcl 10 Mg Tab) 20 mg PO TID@0800,1599,1999 [facility] Last Admin: 10/23/23 09:56 Dose: 20 mg Ipratropium [place] (Ipratropium [place] 0.06% Nasal [place] (15 Ml)) 1 spray EA NOSTRIL BID@799,1999 [facility] Last Admin: 10/23/23 12:30 Dose: Not Given Loratadine/Pseudoephedrine Sulfate (Loratadine-Pseudoeph 5-120 Mg 1 Each Tab.Er.12h) 1 each PO Q12HR [facility] Last Admin: 10/23/23 09:57 Dose: 1 each Miscellaneous Information (Pneumonia Protocol Utilized 1 Each Misc) 1 each PO ONCE PRN PRN Reason: Per Protocol Montelukast Sodium (Montelukast 10 Mg Tab) 10 mg PO HS@1999 [facility] Last Admin: 10/22/23 20:35 Dose: 10 mg Multivitamins (Multivitamins, Thera 1 Each Tab) 1 each PO DAILY@0800 [facility] Last Admin: 10/23/23 09:57 Dose: 1 each Naloxone HCl (Naloxone 0.4 Mg/Ml 1 Ml Vial) 0.2 mg IV Q2M PRN PRN Reason: Opioid Reversal Brexpiprazole [ (Rexulti] 1 Mg Tablet) 0.5 mg PO HS@1999 [facility] Last Admin: 10/22/23 20:38 Dose: Not Given Brexpiprazole [ (Rexulti] 1 Mg Tablet) 1 mg PO BID@0800,1599 [facility] Last Admin: 10/23/23 09:28 Dose: Not Given Ondansetron HCl (Ondansetron 4 Mg/2 Ml Vial) 4 mg IVP Q8HR PRN PRN Reason: Nausea And Vomiting Last Admin: 10/20/23 14:38 Dose: 4 mg Ondansetron HCl (Ondansetron 4 Mg Tab) 4 mg PO Q8HR PRN PRN Reason: Nausea And Vomiting Pantoprazole Sodium (Pantoprazole 40 Mg Tablet) 40 mg PO DAILY@729 [facility] Last Admin: 10/23/23 06:38 Dose: 40 mg Polyethylene Glycol (Polyethylene Glycol 3350 17 Gm Powd.Pack) 17 gm PO DAILY@799 [facility] Last Admin: 10/23/23 09:57 Dose: 17 gm Potassium Chloride (Potassium Chloride Er 10 Meq Tab.Er.Prt) 10 meq PO BID@799,1599 [facility] Last Admin: 10/23/23 09:56 Dose: 10 meq Vitamin E (Vitamin E (Dl,Tocopheryl Acet) 400 Unit (180 Mg) Cap) 400 unit PO HS@1999 [facility] Last Admin: 10/22/23 20:36 Dose: 400 unit Social history: Assisted living. Physical examination: VITAL SIGNS: Afebrile, 63, 20, 147 x 84, 88-91% on room air GENERAL: Sitting up in a chair, EYES: Pupils equal. Conjunctiva roxie l. HEENT: External appearance of nose and ears normal, oral cavity grossly normal. Nasal congestion NECK: JVD not raised; masses not palpable. HEART: First and second heart sounds are normal; no edema. LUNGS: Respiratory rate i normal decreased breath sounds. ABDOMEN: Soft, nontender, liver spleen not palpable, no masses palpable. PSYCH: Patient does really does not really speak unable to assess l. MUSCULOSKELETAL:No Clubbing/cyanosis;muscles-grossly intact INVESTIGATIONS, reviewed in the clinical context: October 21: White count 7.4 hemoglobin 12.1 potassium 3.2 creatinine 0.77 October 20: Procalcitonin 0.68 October 6: White count 9.6 hemoglobin 12.5 platelets 209 lymphocyte 0.5 neutrophils 8.3 sodium 137 potassium 3.2 creatinine 0.9 Troponin I 0.030, 0.019 CRP 5.7 Influenza type A, B, RSV, COVID-19: Not detected EKG tracing personally reviewed by me-normal sinus rhythm. Some nonspecific ST T wave changes. Chest x-ray film personally reviewed by me-right basilar infiltrate Assessment and Plan: -Right basilar pneumonia suspect gram-negative organism Azithromycin. Ceftriaxone. -autism -Acute hypoxic respiratory failure secondary to pneumonia Supplemental oxygen -ANGELIKA Hypokalemia - Replace -Essential hypertension Coreg Mood disorder Prozac. -Cognitive impairment Aricept - Full code IM ceftriaxone and Zithromax. Patient refusing to keep his oxygen on. Past Medical History Past Medical History: Hypertension, Pneumonia Additional Past Medical History / Comment(s): autism-limited speech and short phrases, can become agitated and combative,intermittent vomiting mucus when eating-no pattern or with certain foods, Dementia History of Any Multi-Drug Resistant Organisms: None Reported Past Surgical History: No Surgical Hx Reported Past Anesthesia/Blood Transfusion Reactions: No Reported Reaction Additional Past Anesthesia/Blood Transfusion Reaction / Comment(s): never has had general anesthesia Past Psychological History: Anxiety Smoking Status: Never smoker Past Alcohol Use History: None Reported Past Drug Use History: None Reported
[2023-10-24] MEDS ORDERED: Potassium Replacement Protocol 1 EACH MISC MISCELLANE PRN (12:47)
[2023-10-24 12:51] LABS: Basophils # (A) 0.1 k/uL (0-0.2); Basophils % (A) 1 %; Eosinophils # (A) 0.1 k/uL (0-0.7); Eosinophils % (A) 1 %; HCT 41.1 % (39.0-53.0); HGB 13.7 gm/dL (13.0-17.5); Lymphocytes # (A) 1.2 k/uL (1.0-4.8); Lymphocytes % (A) 16 %; MCH 27.8 pg (25.0-35.0); MCHC 33.3 g/dL (31.0-37.0); MCV 83.5 fL (80.0-100.0); Mean Platelet Volume 7.3; Monocytes # (A) 0.5 k/uL (0-1.0); Monocytes % (A) 6 %; Neutrophils # (A) 5.8 k/uL (1.3-7.7); Neutrophils % (A) 75 %; Platelet Count 267 k/uL (150-450); RBC 4.92 m/uL (4.30-5.90); WBC 7.8 k/uL (3.8-10.6)
[2023-10-24] MEDS: guaiFENesin 600 MG TABLET.ER PO SCH (12:57)
[2023-10-24] MEDS ORDERED: POTASSIUM CHLORIDE ER 20 MEQ TAB.ER PO SCH (13:00)
--- NOTE | 2023-10-24 13:19 | XR ---
EXAMINATION TYPE: XR chest 1V portable DATE OF EXAM: 10/24/2023 Comparison: 10/20/2023 Clinical History: 57-year-old male f/u pneumonia Findings: Heart borderline enlarged. Mild interstitial density remains. Some focal patchy opacity medial right base shows slight improvement. No pleural effusion. Impression: Persistent but improving medial right basilar airspace disease.
--- NOTE | 2023-10-24 15:53 | P.PN ---
Progress Note - Text Progress Note Date: 10/24/23 Chief Complaint: Short of breath Patient is a 56-year-old male with history of obstructive sleep apnea, autism, hypertension, anxiety, GERD presented from an assisted living facility with- shortness of breath. Caregiver reported to ER physician that patient started getting short of breath this morning. Having trouble clearing his secretions and coughing. Patient has albuterol treatment but often refuses them. He had a fever this morning. Joshua lopez extremely limited speech. October 20: Admitted with pneumonia started on ceftriaxone azithromycin. Acute hypoxic respiratory failure. Saw patient earlier today. Had all his breakfast. No fever today. Pulse ox of 92%. Appears more restful. October 21: IV got pulled out. Patient not allowing it to be placed. Ceftriaxone changed to IM. Significant nasal congestion. Oral intake good. October 22: Doing better. Getting IM ceftriaxone. Refuses put his oxygen on. Oxygen between 88 to 91%. Eating fair. October 23: Spoke to the nurse. If patient accepts another IV will switch ceftriaxone to IV. Some congested cough. Patient is agreed to put his oxygen on. Requiring 2 L. Currently not ready for discharge. Tolerating diet. Add Mucinex. Chest x-ray from today shows right basilar infiltrate Active Medications Acetaminophen (Acetaminophen Tab 325 Mg Tab) 650 mg PO Q6H PRN PRN Reason: Fever and/ or Pain Albuterol Sulfate (Albuterol Hfa Inhaler) 2 puff INHALATION RT-Q6H PRN PRN Reason: Wheezing Albuterol/Ipratropium (Ipratropium-Albuterol 3 Ml Neb) 3 ml INHALATION RT- QID@08,12,16,20 [facility] Last Admin: 10/24/23 15:32 Dose: Not Given Ascorbic Acid (Ascorbic Acid 500 Mg Tab) 500 mg PO HS@1999 [facility] Last Admin: 10/23/23 19:59 Dose: 500 mg Carvedilol (Carvedilol 12.5 Mg Tab) 12.5 mg PO BID@ [facility] Last Admin: 10/24/23 09:54 Dose: 12.5 mg Ceftriaxone Sodium (Ceftriaxone 2 Gm Vial) 2 gm IM Q24HR [facility]; Protocol Clobetasol Propionate (Clobetasol Prop 0.05% Oint 15gm) 1 applic TOPICAL DAILY PRN; Protocol PRN Reason: SCALY AREAS TRUNK/EXTREMITIES Donepezil HCl (Donepezil 10 Mg Tab) 10 mg PO HS@1999 [facility] Last Admin: 10/23/23 19:58 Dose: 10 mg Enoxaparin Sodium (Enoxaparin 40 Mg/0.4 Ml Syringe) 40 mg SQ DAILY [facility] Last Admin: 10/24/23 10:02 Dose: 40 mg Fluoxetine HCl (Fluoxetine Hcl 20 Mg Cap) 80 mg PO DAILY@0800 [facility] Last Admin: 10/24/23 09:53 Dose: 80 mg Furosemide (Furosemide 20 Mg Tab) 20 mg PO BID@0800,1600 [facility] Last Admin: 10/24/23 09:54 Dose: 20 mg Guaifenesin (Guaifenesin Syrup 100mg/5ml 200 Mg/10 Ml Cup) 200 mg PO TID PRN PRN Reason: Cough Guaifenesin (Guaifenesin 600 Mg Tablet.Er) 600 mg PO QID [facility] Last Admin: 10/24/23 12:57 Dose: 600 mg Guaifenesin/Dextromethorphan (Guaifenesin-Dm 600/30mg 1 Each Tab.Er.12h) 1 each PO Q12HR PRN PRN Reason: Congestion Hydrochlorothiazide (Hydrochlorothiazide 12.5 Mg Cap) 12.5 mg PO DAILY@0800 [facility] Last Admin: 10/24/23 09:54 Dose: 12.5 mg Hydroxyzine HCl (Hydroxyzine Hcl 10 Mg Tab) 20 mg PO TID@0800,1599,1999 [facility] Last Admin: 10/24/23 09:53 Dose: 20 mg Ipratropium [place] (Ipratropium [place] 0.06% Nasal [place] (15 Ml)) 1 spray EA NOSTRIL BID@ [facility] Last Admin: 10/24/23 09:55 Dose: 1 spray Loratadine/Pseudoephedrine Sulfate (Loratadine-Pseudoeph 5-120 Mg 1 Each Tab.Er.12h) 1 each PO Q12HR [facility] Last Admin: 10/24/23 09:53 Dose: 1 each Miscellaneous Information (Pneumonia Protocol Utilized 1 Each Misc) 1 each PO ONCE PRN PRN Reason: Per Protocol Montelukast Sodium (Montelukast 10 Mg Tab) 10 mg PO HS@1999 [facility] Last Admin: 10/23/23 19:58 Dose: 10 mg Multivitamins (Multivitamins, Thera 1 Each Tab) 1 each PO DAILY@0800 [facility] Last Admin: 10/24/23 09:54 Dose: 1 each Naloxone HCl (Naloxone 0.4 Mg/Ml 1 Ml Vial) 0.2 mg IV Q2M PRN PRN Reason: Opioid Reversal Brexpiprazole [ (Rexulti] 1 Mg Tablet) 0.5 mg PO HS@1999 [facility] Last Admin: 10/23/23 19:57 Dose: Not Given Brexpiprazole [ (Rexulti] 1 Mg Tablet) 1 mg PO BID@0800,1600 [facility] Last Admin: 10/24/23 06:37 Dose: Not Given Nystatin (Nystatin 100,000 Unit/Gm Powd 15 Gm) 1 applic TOPICAL TID [facility]; Protocol Ondansetron HCl (Ondansetron 4 Mg/2 Ml Vial) 4 mg IVP Q8HR PRN PRN Reason: Nausea And Vomiting Last Admin: 10/20/23 14:38 Dose: 4 mg Ondansetron HCl (Ondansetron 4 Mg Tab) 4 mg PO Q8HR PRN PRN Reason: Nausea And Vomiting Pantoprazole Sodium (Pantoprazole 40 Mg Tablet) 40 mg PO DAILY@0730 [facility] Last Admin: 10/24/23 06:37 Dose: 40 mg Polyethylene Glycol (Polyethylene Glycol 3350 17 Gm Powd.Pack) 17 gm PO DAILY@0800 [facility] Last Admin: 10/24/23 09:53 Dose: 17 gm Potassium Chloride (Potassium Chloride Er 10 Meq Tab.Er.Prt) 10 meq PO BID@0 800,1600 [facility] Last Admin: 10/24/23 09:54 Dose: 10 meq Vitamin E (Vitamin E (Dl,Tocopheryl Acet) 400 Unit (180 Mg) Cap) 400 unit PO HS@1999 [facility] Last Admin: 10/23/23 19:58 Dose: 400 unit Social history: Assisted living. Physical examination: VITAL SIGNS: 97.3, 65, 20, 144 x 86, 95% on 2 L GENERAL: Sitting at the edge of the bed, EYES: Pupils equal. Conjunctiva roxie l. HEENT: External appearance of nose and ears normal, oral cavity grossly normal. Nasal congestion NECK: JVD not raised; masses not palpable. HEART: First and second heart sounds are normal; no edema. LUNGS: Respiratory rate increased, decreased breath sounds. Some basilar crackles ABDOMEN: Soft, nontender, liver spleen not palpable, no masses palpable. PSYCH: Patient does really does not really speak unable to assess l. MUSCULOSKELETAL:No Clubbing/cyanosis;muscles-grossly intact INVESTIGATIONS, reviewed in the clinical context: October 23: White count 7.8 hemoglobin 13.7 platelets 267 October 21: White count 7.4 hemoglobin 12.1 potassium 3.2 creatinine 0.77 October 20: Procalcitonin 0.68 October 19: White count 9.6 hemoglobin 12.5 platelets 209 lymphocyte 0.5 neutrophils 8.3 sodium 137 potassium 3.2 creatinine 0.9 Troponin I 0.030, 0.019 CRP 5.7 Influenza type A, B, RSV, COVID-19: Not detected EKG tracing personally reviewed by me-normal sinus rhythm. Some nonspecific ST T wave changes. Chest x-ray film personally reviewed by me-right basilar infiltrate Assessment and Plan: -Right basilar pneumonia suspect gram-negative organism: Slow improvement Azithromycin. Ceftriaxone. -autism -Acute hypoxic respiratory failure secondary to pneumonia Supplemental oxygen-2 L -ANGELIKA Hypokalemia - Replace -Essential hypertension Coreg Mood disorder Prozac. -Cognitive impairment Aricept - Full code Continue with antibiotics. Patient is agreed to put his oxygen on now. Not ready for discharge. Does need oxygen at home. Past Medical History Past Medical History: Hypertension, Pneumonia Additional Past Medical History / Comment(s): autism-limited speech and short phrases, can become agitated and combative,intermittent vomiting mucus when eating-no pattern or with certain foods, Dementia History of Any Multi-Drug Resistant Organisms: None Reported Past Surgical History: No Surgical Hx Reported Past Anesthesia/Blood Transfusion Reactions: No Reported Reaction Additional Past Anesthesia/Blood Transfusion Reaction / Comment(s): never has had general anesthesia Past Psychological History: Anxiety Smoking Status: Never smoker Past Alcohol Use History: None Reported
[2023-10-24] MEDS: NYSTATIN 100,000 UNIT/GM POWD 15 GM TOPICAL SCH (17:11)
[2023-10-25] MEDS: cefTRIAXone 2 GM VIAL IM SCH (08:20)
[2023-10-25 08:48] VITALS: BP 154/99; PULSE 93; RESP 18; TEMP 97.5
--- NOTE | 2023-10-25 17:56 | P.DS ---
Providers Date of admission: 10/20/23 11:33 Expected date of discharge: 10/25/23 Attending physician: Harjeet Helton Primary care physician: [facility] Course: Chief Complaint: Short of breath Patient is a 56-year-old male with history of obstructive sleep apnea, autism, hypertension, anxiety, GERD presented from an assisted living facility with- shortness of breath. Caregiver reported to ER physician that patient started getting short of breath this morning. Having trouble clearing his secretions and coughing. Patient has albuterol treatment but often refuses them. He had a fever this morning. Patient extremely limited speech. October 20: Admitted with pneumonia started on ceftriaxone azithromycin. Acute hypoxic respiratory failure. Saw patient earlier today. Had all his breakfast. No fever today. Pulse ox of 92%. Appears more restful. October 21: IV got pulled out. Patient not allowing it to be placed. Ceftriaxone changed to IM. Significant nasal congestion. Oral intake good. October 22: Doing better. Getting IM ceftriaxone. Refuses put his oxygen on. Oxygen between 88 to 91%. Eating fair. October 23: Spoke to the nurse. If patient accepts another IV will switch ceftriaxone to IV. Some congested cough. Patient is agreed to put his oxygen on. Requiring 2 L. Currently not ready for discharge. Tolerating diet. Add Mucinex. Chest x-ray from today shows right basilar infiltrate October 24: Patient doing much better. Eating well. Pulse ox 93% room air. Respiratory symptoms much improved. Will give 3 more days of Ceftin. Patient return to his half-way. Patient seen by physical therapy. Given a walker because of weakness. Discussion and discharge planning more than 35 minutes Social history: Assisted living. Physical examination: VITAL SIGNS: 97.5, 93, 18, 150/99, 93% room air GENERAL: Sitting up, comfortable EYES: Pupils equal. Conjunctiva roxie l. HEENT: External appearance of nose and ears normal, oral cavity grossly normal. Nasal congestion NECK: JVD not raised; masses not palpable. HEART: First and second heart sounds are normal; no edema. LUNGS: Respiratory rate normal, improved air entry ABDOMEN: Soft, nontender, liver spleen not palpable, no masses palpable. PSYCH: Patient does really does not really speak unable to assess l. MUSCULOSKELETAL:No Clubbing/cyanosis;muscles-grossly intact INVESTIGATIONS, reviewed in the clinical context: March 11: Procalcitonin 0.27 October 10: White count 7.8 hemoglobin 13.7 platelets 267 October 21: White count 7.4 hemoglobin 12.1 potassium 3.2 creatinine 0.77 October 20: Procalcitonin 0.68 October 19: White count 9.6 hemoglobin 12.5 platelets 209 lymphocyte 0.5 neutrophils 8.3 sodium 137 potassium 3.2 creatinine 0.9 Troponin I 0.030, 0.019 CRP 5.7 Influenza type A, B, RSV, COVID-19: Not detected EKG tracing personally reviewed by me-normal sinus rhythm. Some nonspecific ST T wave changes. Chest x-ray film personally reviewed by me-right basilar infiltrate Assessment and Plan: -Right basilar pneumonia suspect gram-negative organism: Much better Azithromycin. Ceftriaxone. Complete 3 days of Ceftin upon discharge 5 mg twice daily -autism -Acute hypoxic respiratory failure secondary to pneumonia: Corrected -ANGELIKA Hypokalemia -replaced -Acute medical debility from pneumonia Patient being prescribed a walker as recommended by PT -Essential hypertension Coreg Mood disorder Prozac. -Cognitive impairment Aricept - Full code Disposition: [facility] Past Medical History Past Medical History: Hypertension, Pneumonia Additional Past Medical History / Comment(s): autism-limited speech and short phrases, can become agitated and combative,intermittent vomiting mucus when eating-no pattern or with certain foods, Dementia History of Any Multi-Drug Resistant Organisms: None Reported Past Surgical History: No Surgical Hx Reported Past Anesthesia/Blood Transfusion Reactions: No Reported Reaction Additional Past Anesthesia/Blood Transfusion Reaction / Comment(s): never has had general anesthesia Past Psychological History: Anxiety Smoking Status: Never smoker Past Alcohol Use History: None Reported Plan - Discharge Summary Discharge Rx Participant: No New Discharge Prescriptions: New cefUROXime axetiL [Ceftin] 500 mg PO BID #6 tab Loratadine-Pseudoeph 5-120 mg [Claritin-D 12 Hour] 1 each PO Q12HR #6 tab Nystatin 100,000 Unit/gm Powd [Mycostatin Powder] 1 applic TOPICAL TID #1 each Continue Vitamin E 400 unit PO HS@2000 Ascorbic Acid [Vitamin C] 500 mg PO HS@2000 Omeprazole 20 mg PO BID@0700,2000 polyethylene glycoL 3350 [Miralax] 17 gm PO DAILY@0800 FLUoxetine HCL [PROzac] 80 mg PO DAILY@0800 Albuterol Inhaler [Ventolin Hfa Inhaler] 2 puff INHALATION RT-Q6H PRN PRN Reason: Wheezing guaiFENesin SYRUP 100MG/5ML [Robitussin] 200 mg PO TID PRN PRN Reason: Cough Ondansetron [Zofran] 4 mg PO Q8HR PRN PRN Reason: Nausea And Vomiting Pediatric Multivit No.203/Iron [Flintstones with Iron Tab Chew] 2 tab PO DAILY@0800 Glucosam/Yoshi-Msm1/C/Kg/Bosw [Glucosamine-Chondroitin Tablet] 1 tab PO DAILY@1999 hydroCHLOROthiazide 12.5 mg PO DAILY@0800 Acetaminophen Tab [Tylenol] 650 mg PO Q6H PRN PRN Reason: Fever And/ Or Pain hydrOXYzine HCL [Atarax] 20 mg PO TID@0800,1600,1999 Brexpiprazole [Rexulti] 1 mg PO BID@0800,1600 Potassium Chloride ER [K-Dur 10] 10 meq PO BID@0800,1600 Donepezil HCl [Aricept] 10 mg PO HS@1999 Ipratropium-Albuterol Nebulize [Duoneb 0.5 mg-3 mg/3 ml Soln] 3 ml INHALATION RT-QID@08,12,16,20 Montelukast [Singulair] 10 mg PO HS@1999 Clobetasol Propionate [Temovate 0.05% Oint] 1 applic TOPICAL DAILY PRN PRN Reason: SCALY AREAS TRUNK/EXTREMITIES carvediloL [Coreg] 12.5 mg PO BID@0800,1999 Furosemide [Lasix] 20 mg PO BID@0800,1600 Ipratropium [place] 0.06%Nasal [Atrovent Nasal 0.06%] 1 spray EA NOSTRIL BID@0800,1999 Brexpiprazole [Rexulti] 0.5 mg PO HS@1999 Discontinued Cetirizine HCl [Zyrtec] 10 mg PO DAILY@1999 guaiFENesin-DM 600/30MG [Mucinex Dm] 1 tab PO Q12HR PRN PRN Reason: Congestion Phenylephrine/Dm/Acetaminop/GG [Mucinex Fast-Max Cold-Flu Liq] 20 ml PO TID PRN PRN Reason: COUGH AND CONGESTION Discharge Medication List Ascorbic Acid [Vitamin C] 500 mg PO HS@199910/03/19 [History] FLUoxetine HCL [PROzac] 80 mg PO DAILY@0810/03/19 [History] Omeprazole 20 mg PO BID@699,199910/03/19 [History] Vitamin E 400 unit PO HS@199910/03/19 [History] polyethylene glycoL 3350 [Miralax] 17 gm PO DAILY@0800 10/03/19 [History] Albuterol Inhaler [Ventolin Hfa Inhaler] 2 puff INHALATION RT-Q6H PRN 10/11/19 [History] guaiFENesin SYRUP 100MG/5ML [Robitussin] 200 mg PO TID PRN 10/11/19 [History] Donepezil HCl [Aricept] 10 mg PO HS@199909/13/22 [History] Glucosam/Yoshi-Msm1/C/Kg/Bosw [Glucosamine-Chondroitin Tablet] 1 tab PO DAILY@199909/13/22 [History] Ondansetron [Zofran] 4 mg PO Q8HR PRN 09/13/22 [History] Pediatric Multivit No.203/Iron [Flintstones with Iron Tab Chew] 2 tab PO DAILY@0809/13/22 [History] Ipratropium-Albuterol Nebulize [Duoneb 0.5 mg-3 mg/3 ml Soln] 3 ml INHALATION RT-QID@08,12,16,20 11/18/22 [History] Montelukast [Singulair] 10 mg PO HS@199911/18/22 [History] hydroCHLOROthiazide 12.5 mg PO DAILY@0811/18/22 [History] Acetaminophen Tab [Tylenol] 650 mg PO Q6H PRN 10/20/23 [History] Brexpiprazole [Rexulti] 0.5 mg PO HS@199910/20/23 [History] Brexpiprazole [Rexulti] 1 mg PO BID@0800,1600 10/20/23 [History] Clobetasol Propionate [Temovate 0.05% Oint] 1 applic TOPICAL DAILY PRN 10/20/23 [History] Furosemide [Lasix] 20 mg PO BID@0800,1600 10/20/23 [History] Ipratropium [place] 0.06%Nasal [Atrovent Nasal 0.06%] 1 spray EA NOSTRIL BID@0800,199910/20/23 [History] Potassium Chloride ER [K-Dur 10] 10 meq PO BID@0800,1600 10/20/23 [History] carvediloL [Coreg] 12.5 mg PO BID@799,199910/20/23 [History] hydrOXYzine HCL [Atarax] 20 mg PO TID@0800,1599,199910/20/23 [History] Loratadine-Pseudoeph 5-120 mg [Claritin-D 12 Hour] 1 each PO Q12HR #6 tab 10/25/23 [Rx] Nystatin 100,000 Unit/gm Powd [Mycostatin Powder] 1 applic TOPICAL TID #1 each 10/25/23 [Rx] cefUROXime axetiL [Ceftin] 500 mg PO BID #6 tab 10/25/23 [Rx] Follow up Appointment(s)/Referral(s): Christopher Estrada MD [Primary Care Provider] - 1-2 days (office is not answering. Please call for follow-up appointment.) [facility], [NON-STAFF] - 1-2 Days ([facility] will call to schedule your in home nursing visits. ) Patient Instructions/Handouts: Pneumonia (DC) Activity/Diet/Wound Care/Special Instructions: Call [facility] at discharge (group counselor) [phone] - they will transport patient home. Patient is requiring assist with ambulation and will need to ambulate with a walker at this time. Discharge Disposition: OTHER INSTITUTION NOT DEFINED
== END 2023-10-25 15:30 | disposition home health service (06) | DRG 137 ==
LOC: EC 09:34 → 4SSUR 11:33 → 6NMEDSUR 17:52 → 4SSUR 18:04
PROVIDERS: ADMIT Hospitalist; ATTEND Hospitalist
DX: J15.69 Pneumonia due to other Gram-negative bacteria (principal); I10 Essential (primary) hypertension; G47.33 Obstructive sleep apnea (adult) (pediatric); F03.918 Unspecified dementia, unspecified severity, with other behavioral disturbance; F84.0 Autistic disorder; J96.01 Acute respiratory failure with hypoxia; E87.6 Hypokalemia; Z88.0 Allergy status to penicillin
CPT/HCPCS: 36415; 71045; 71046; 80048; 80053; 83605; 83880; 84145; 84484; 85025; 85610; 85730; 86140; 87040; 87070; 87205; 87449; 87636; 93005; 94640; 94760; 96365; 96367; 96375; 99285

== ENCOUNTER 2023-11-09 00:36 | Emergency (ER) | payer OTHER ==
--- NOTE | 2023-11-09 01:07 | ED ---
Fever HPI - General Chief Complaint: Fever Stated Complaint: Fever Time Seen by Provider: 11/09/23 00:38 Source: EMS, RN notes reviewed, old records reviewed Mode of arrival: EMS Limitations: altered mental status, physical limitation - History of Present Illness Initial Comments: This is a 57-year-old male with altered mental status unable to provide history secondary to autism disorder. Patient presents for significant fever here in the emergency room. Patient has persistent fever here without complaint. Unknown sick contact exposure. Patient unable to provide history MD Complaint: fever, malaise, weakness -: hour(s) Temperature Source: subjective Context: sick contacts, multiple patients with similar symptoms Associated Symptoms: chills, rigors, myalgias Treatments Prior to Arrival: none - Related Data Home Medications Medication Instructions Recorded Confirmed Ascorbic Acid [Vitamin C] 500 mg PO HS@199910/03/19 10/20/23 FLUoxetine HCL [PROzac] 80 mg PO DAILY@0810/03/19 10/20/23 Omeprazole 20 mg PO BID@07,199910/03/19 10/20/23 Vitamin E 400 unit PO HS@199910/03/19 10/20/23 polyethylene glycoL 3350 [Miralax] 17 gm PO DAILY@79910/03/19 10/20/23 Albuterol Inhaler [Ventolin Hfa 2 puff INHALATION RT-Q6H PRN 10/11/19 10/20/23 Inhaler] guaiFENesin SYRUP 100MG/5ML 200 mg PO TID PRN 10/11/19 10/20/23 [Robitussin] Donepezil HCl [Aricept] 10 mg PO HS@199909/13/22 10/20/23 Glucosam/Ysohi-Msm1/C/Kg/Bosw 1 tab PO DAILY@199909/13/22 10/20/23 [Glucosamine-Chondroitin Tablet] Ondansetron [Zofran] 4 mg PO Q8HR PRN 09/13/22 10/20/23 Pediatric Multivit No.203/Iron 2 tab PO DAILY@0800 09/13/22 10/20/23 [Flintstones with Iron Tab Chew] Ipratropium-Albuterol Nebulize 3 ml INHALATION RT-QID@08,12,16,20 11/18/22 10/20/23 [Duoneb 0.5 mg-3 mg/3 ml Soln] Montelukast [Singulair] 10 mg PO HS@199911/18/22 10/20/23 hydroCHLOROthiazide 12.5 mg PO DAILY@0800 11/18/22 10/20/23 Acetaminophen Tab [Tylenol] 650 mg PO Q6H PRN 10/20/23 10/20/23 Brexpiprazole [Rexulti] 0.5 mg PO HS@199910/20/23 10/20/23 Brexpiprazole [Rexulti] 1 mg PO BID@0800,1600 10/20/23 10/20/23 Clobetasol Propionate [Temovate 1 applic TOPICAL DAILY PRN 10/20/23 10/20/23 0.05% Oint] Furosemide [Lasix] 20 mg PO BID@0800,1600 10/20/23 10/20/23 Ipratropium [place] 0.06%Nasal 1 spray EA NOSTRIL BID@0800,199910/20/23 0 10/20/23 [Atrovent Nasal 0.06%] Potassium Chloride ER [K-Dur 10] 10 meq PO BID@0800,1600 10/20/23 10/20/23 carvediloL [Coreg] 12.5 mg PO BID@0800,199910/20/23 10/20/23 hydrOXYzine HCL [Atarax] 20 mg PO TID@0800,1600,199910/20/23 10/20/23 Previous Rx's Medication Instructions Recorded Loratadine-Pseudoeph 5-120 mg 1 each PO Q12HR #6 tab 10/25/23 [Claritin-D 12 Hour] Nystatin 100,000 Unit/gm Powd 1 applic TOPICAL TID #1 each 10/25/23 [Mycostatin Powder] cefUROXime axetiL [Ceftin] 500 mg PO BID #6 tab 10/25/23 Allergies Allergy/AdvReac Type Severity Reaction Status Date / Time Penicillins Allergy Unknown Verified 11/09/23 00:52 Review of Systems ROS Statement: Those systems with pertinent positive or pertinent negative responses have been documented in the HPI. ROS Other: All systems not noted in ROS Statement are negative. Past Medical History Past Medical History: Hypertension, Pneumonia Additional Past Medical History / Comment(s): autism-limited speech and short phrases, can become agitated and combative,intermittent vomiting mucus when eating-no pattern or with certain foods, Dementia History of Any Multi-Drug Resistant Organisms: None Reported Past Surgical History: No Surgical Hx Reported Past Anesthesia/Blood Transfusion Reactions: No Reported Reaction Additional Past Anesthesia/Blood Transfusion Reaction / Comment(s): never has had general anesthesia Past Psychological History: Anxiety Smoking Status: Never smoker Past Alcohol Use History: None Reported Past Drug Use History: None Reported - Past Family History Mother History Unknown: Yes Father Family Medical History: Cancer Additional Family Medical History / Comment(s): prostate General Exam General appearance: alert, in no apparent distress Head exam: Present: atraumatic, normocephalic, normal inspection Eye exam: Present: normal appearance, PERRL, EOMI. Absent: scleral icterus, conjunctival injection, periorbital swelling ENT exam: Present: normal exam, mucous membranes moist Neck exam: Present: normal inspection. Absent: tenderness, meningismus, lymphadenopathy Respiratory exam: Present: normal lung sounds bilaterally. Absent: respiratory distress, wheezes, rales, rhonchi, stridor Cardiovascular Exam: Present: regular rate, normal rhythm, normal heart sounds. Absent: systolic murmur, diastolic murmur, rubs, gallop, clicks GI/Abdominal exam: Present: soft, normal bowel sounds. Absent: distended, tenderness, guarding, rebound, rigid Extremities exam: Present: normal inspection, full ROM, normal capillary refill. Absent: tenderness, pedal edema, joint swelling, calf tenderness Back exam: Present: normal inspection Neurological exam: Present: alert, oriented X3, CN II-XII intact Psychiatric exam: Present: normal affect, normal mood Skin exam: Present: warm, dry, intact, normal color. Absent: rash Course Vital Signs 11/09/23 11/09/23 11/09/23 00:38 02:00 03:00 Temperature 101.1 F H 99.7 F H Pulse Rate 86 70 71 Respiratory 20 26 H 19 Rate Blood Pressure 149/88 129/74 148/75 O2 Sat by Pulse 91 L 95 97 Oximetry 11/09/23 11/09/23 11/09/23 04:00 05:00 06:00 Temperature 98.4 F Pulse Rate 66 58 L 58 L Respiratory 20 19 17 Rate Blood Pressure 126/73 129/93 141/83 O2 Sat by Pulse 98 98 100 Oximetry 11/09/23 11/09/23 07:00 07:44 Temperature 98.9 F Pulse Rate 74 Respiratory 18 Rate Blood Pressure 141/87 O2 Sat by Pulse 98 92 L Oximetry - Reevaluation(s) Reevaluation #1: 11/09/23 01:07 Medical records reviewed Reevaluation #2: 11/09/23 06:41 Patient's symptoms are improved here in the ER Reevaluation #3: 11/09/23 06:41 Patient informed of results and questions answered Reevaluation #4: Was pt. sent in by a medical professional or institution (, LEONCIO, FREELANCE DIRECTOR, urgent care, hospital, or half-way...) When possible be specific @ -no Did you speak to anyone other than the patient for history (EMS, parent, family, police, friend...)? What history was obtained from this source @ -no Did you review nursing and triage notes (agree or disagree)? Why? @ -agree Are old charts reviewed (outside hosp., previous admission, EMS record, old EKG, old radiological studies, urgent care reports/EKG's, half-way records)? Report findings @ -yes Differential Diagnosis (chest pain, altered mental status, abdominal pain women, abdominal pain men, vaginal bleeding, weakness, fever, dyspnea, syncope, headache, dizziness, GI bleed, back pain, seizure, CVA, palpatations, mental health, musculoskeletal)? @ -prior EKG interpreted by me (3pts min.). @ -yes X-rays interpreted by me (1pt min.). @ -yes negative for acute disease CT interpreted by me (1pt min.). @ -no U/S interpreted by me (1pt. min.). @ -no What testing was considered but not performed or refused? (CT, X-rays, U/S, labs)? Why? @ -none What meds were considered but not given or refused? Why? @ -none Did you discuss the management of the patient with other professionals (cordelia lafleur i.e. LEONCIO Valiente, FREELANCE DIRECTOR, lab, RT, psych nurse, social media sr strategy manager, fiscal technician, teacher, chief security officer, case management assistant)? Give summary @ -no Was smoking cessation discussed for >3mins.? @ -no Was critical care preformed (if so, how long)? @ -no Were there social determinants of health that impacted care today? How? (Homelessness, low income, unemployed, alcoholism, drug addiction, transportation, low edu. Level, literacy, decrease access to med. care, fci, rehab)? @ -none Was there de-escalation of care discussed even if they declined (Discuss DNR or withdrawal of care, Hospice)? DNR status @ -no What co-morbidities impacted this encounter? (DM, HTN, Smoking, COPD, CAD, Cancer, CVA, ARF, Chemo, Hep., AIDS, mental health diagnosis, sleep apnea, morbid obesity)? @ -none Was patient admitted / discharged? Hospital course, mention meds given and route, prescriptions, significant lab abnormalities, going to OR and other pertinent info. @ - 57 male to the ER for evaluation of fever tonight. Patient has no acute cause of fever found here in the emergency room, patient can be discharged home with negative viral testing negative x-ray and negative urine, patient is awake and alert feels well without no acute distress with normal lab testing Discharge Undiagnosed new problem with uncertain prognosis? @ -no Drug Therapy requiring intensive monitoring for toxicity (Heparin, Nitro, Insulin, Cardizem)? @ -no Were any procedures done? @ -no Diagnosis/symptom? @ -Fever unknown cause viral testing Acute, or Chronic, or Acute on Chronic? @ -Acute Uncomplicated (without systemic symptoms) or Complicated (systemic symptoms)? @ -Complicated Side effects of treatment? @ -no Exacerbation, Progression, or Severe Exacerbation? @ -exacerbation Poses a threat to life or bodily function? How? (Chest pain, [place], HI, pneumonia, PE, COPD, DKA, ARF, appy, cholecystitis, CVA, Diverticulitis, Homicidal, Suicidal, threat to staff... and all critical care pts) @ -yes with fever and pneumonia Reevaluation #5: Differential Fever: Pneumonia, viral URI, endocarditis, myocarditis, pericarditis, otitis, sinusitis, peritonsillar Abscess, retropharyngeal Abscess, epiglottitis, peritonitis, appendicitis, Tracie cystitis, diverticulitis, hepatitis, colitis, UTI, PID, TOA, pyelonephritis, prostatitis, epididymitis, meningitis, encephalitis, pulmonary embolism, CVA, thyroid storm, pancreatitis, adrenal crisis, cavernous sinus thrombosis, this is not meant to be an all-inclusive list. Medical Decision Making - Medical Decision Making 57 male to the ER for evaluation of fever tonight. Patient has no acute cause of fever found here in the emergency room, patient can be discharged home with negative viral testing negative x-ray and negative urine, patient is awake and alert feels well without no acute distress with normal lab testing - Lab Data Result diagrams: 11/09/23 02:13 11/09/23 02:13 Lab Results 11/09/23 11/09/23 11/09/23 Range/Units 02:13 02:13 02:13 WBC 13.7 H (3.8-10.6) k/uL RBC 4.61 (4.30-5.90) m/uL Hgb 12.6 L (13.0-17.5) gm/dL Hct 38.0 L (39.0-53.0) % MCV 82.5 (80.0-100.0) fL MCH 27.4 (25.0-35.0) pg MCHC 33.2 (31.0-37.0) g/dL RDW 14.0 (11.5-15.5) % Plt Count 305 (150-450) k/uL MPV 7.0 Neutrophils % 86 % Lymphocytes % 6 % Monocytes % 6 % Eosinophils % 0 % Basophils % 0 % Neutrophils # 11.8 H (1.3-7.7) k/uL Lymphocytes # 0.8 L (1.0-4.8) k/uL Monocytes # 0.8 (0-1.0) k/uL Eosinophils # 0.1 (0-0.7) k/uL Basophils # 0.0 (0-0.2) k/uL PT 10.8 (10.0-12.5) sec INR 1.0 (<1.2) APTT 24.7 (22.0-30.0) sec Sodium 130 L (137-145) mmol/L Potassium 3.3 L (3.5-5.1) mmol/L Chloride 97 L (98-107) mmol/L Carbon Dioxide 30 (22-30) mmol/L Anion Gap 3 mmol/L BUN 21 H (9-20) mg/dL Creatinine 0.88 (0.66-1.25) mg/dL Est GFR (CKD-EPI)AfAm >90 (>60 ml/min/1.73 sqM) Est GFR (CKD-EPI)NonAf >90 (>60 ml/min/1.73 sqM) Glucose 111 H (74-99) mg/dL Plasma Lactic Acid Wilber (0.7-2.0) mmol/L Calcium 8.0 L (8.4-10.2) mg/dL Phosphorus 3.2 (2.5-4.5) mg/dL Magnesium 1.8 (1.6-2.3) mg/dL Total Bilirubin 0.9 (0.2-1.3) mg/dL AST 35 (17-59) U/L ALT 39 (4-49) U/L Alkaline Phosphatase 76 (38-126) U/L Troponin I (0.000-0.034) ng/mL NT-Pro-B Natriuret Pep 435 pg/mL Total Protein 5.7 L (6.3-8.2) g/dL Albumin 2.9 L (3.5-5.0) g/dL Urine Color Urine Appearance (Clear) Urine pH (5.0-8.0) Ur Specific [place] (1.001-1.035) Urine Protein (Negative) Urine Glucose (UA) (Negative) Urine Ketones (Negative) Urine Blood (Negative) Urine Nitrite (Negative) Urine Bilirubin (Negative) Urine Urobilinogen (<2.0) mg/dL Ur Leukocyte Esterase (Negative) Influenza Type A (PCR) (Not Detectd) Influenza Type B (PCR) (Not Detectd) RSV (PCR) (Not Detectd) SARS-CoV-2 (PCR) (Not Detectd) 11/09/23 11/09/23 11/09/23 Range/Units 02:13 02:13 02:13 WBC (3.8-10.6) k/uL RBC (4.30-5.90) m/uL Hgb (13.0-17.5) gm/dL Hct (39.0-53.0) % MCV (80.0-100.0) fL MCH (25.0-35.0) pg MCHC (31.0-37.0) g/dL RDW (11.5-15.5) % Plt Count (150-450) k/uL MPV Neutrophils % % Lymphocytes % % Monocytes % % Eosinophils % % Basophils % % Neutrophils # (1.3-7.7) k/uL Lymphocytes # (1.0-4.8) k/uL Monocytes # (0-1.0) k/uL Eosinophils # (0-0.7) k/uL Basophils # (0-0.2) k/uL PT (10.0-12.5) sec INR (<1.2) APTT (22.0-30.0) sec Sodium (137-145) mmol/L Potassium (3.5-5.1) mmol/L Chloride (98-107) mmol/L Carbon Dioxide (22-30) mmol/L Anion Gap mmol/L BUN (9-20) mg/dL Creatinine (0.66-1.25) mg/dL Est GFR (CKD-EPI)AfAm (>60 ml/min/1.73 sqM) Est GFR (CKD-EPI)NonAf (>60 ml/min/1.73 sqM) Glucose (74-99) mg/dL Plasma Lactic Acid Wilber 0.8 (0.7-2.0) mmol/L Calcium (8.4-10.2) mg/dL Phosphorus (2.5-4.5) mg/dL Magnesium (1.6-2.3) mg/dL Total Bilirubin (0.2-1.3) mg/dL AST (17-59) U/L ALT (4-49) U/L Alkaline Phosphatase (38-126) U/L Troponin I <0.012 (0.000-0.034) ng/mL NT-Pro-B Natriuret Pep pg/mL Total Protein (6.3-8.2) g/dL Albumin (3.5-5.0) g/dL Urine Color Urine Appearance (Clear) Urine pH (5.0-8.0) Ur Specific [place] (1.001-1.035) Urine Protein (Negative) Urine Glucose (UA) (Negative) Urine Ketones (Negative) Urine Blood (Negative) Urine Nitrite (Negative) Urine Bilirubin (Negative) Urine Urobilinogen (<2.0) mg/dL Ur Leukocyte Esterase (Negative) Influenza Type A (PCR) Not Detected (Not Detectd) Influenza Type B (PCR) Not Detected (Not Detectd) RSV (PCR) Not Detected (Not Detectd) SARS-CoV-2 (PCR) Not Detected (Not Detectd) 11/09/23 Range/Units 05:18 WBC (3.8-10.6) k/uL RBC (4.30-5.90) m/uL Hgb (13.0-17.5) gm/dL Hct (39.0-53.0) % MCV (80.0-100.0) fL MCH (25.0-35.0) pg MCHC (31.0-37.0) g/dL RDW (11.5-15.5) % Plt Count (150-450) k/uL MPV Neutrophils % % Lymphocytes % % Monocytes % % Eosinophils % % Basophils % % Neutrophils # (1.3-7.7) k/uL Lymphocytes # (1.0-4.8) k/uL Monocytes # (0-1.0) k/uL Eosinophils # (0-0.7) k/uL Basophils # (0-0.2) k/uL PT (10.0-12.5) sec INR (<1.2) APTT (22.0-30.0) sec Sodium (137-145) mmol/L Potassium (3.5-5.1) mmol/L Chloride (98-107) mmol/L Carbon Dioxide (22-30) mmol/L Anion Gap mmol/L BUN (9-20) mg/dL Creatinine (0.66-1.25) mg/dL Est GFR (CKD-EPI)AfAm (>60 ml/min/1.73 sqM) Est GFR (CKD-EPI)NonAf (>60 ml/min/1.73 sqM) Glucose (74-99) mg/dL Plasma Lactic Acid Wilber (0.7-2.0) mmol/L Calcium (8.4-10.2) mg/dL Phosphorus (2.5-4.5) mg/dL Magnesium (1.6-2.3) mg/dL Total Bilirubin (0.2-1.3) mg/dL AST (17-59) U/L ALT (4-49) U/L Alkaline Phosphatase (38-126) U/L Troponin I (0.000-0.034) ng/mL NT-Pro-B Natriuret Pep pg/mL Total Protein (6.3-8.2) g/dL Albumin (3.5-5.0) g/dL Urine Color Colorless Urine Appearance Clear (Clear) Urine pH 7.0 (5.0-8.0) Ur Specific [place] 1.010 (1.001-1.035) Urine Protein Negative (Negative) Urine Glucose (UA) Negative (Negative) Urine Ketones Negative (Negative) Urine Blood Negative (Negative) Urine Nitrite Negative (Negative) Urine Bilirubin Negative (Negative) Urine Urobilinogen <2.0 (<2.0) mg/dL Ur Leukocyte Esterase Negative (Negative) Influenza Type A (PCR) (Not Detectd) Influenza Type B (PCR) (Not Detectd) RSV (PCR) (Not Detectd) SARS-CoV-2 (PCR) (Not Detectd) - EKG Data -: EKG Interpreted by Me (EKG is sinus 69 [place] 189 QRS 115 QTc 458) - Radiology Data Radiology results: report reviewed (Chest x-ray is negative for acute disease), image reviewed Disposition Clinical Impression: Fever Disposition: HOME SELF-CARE Condition: Good Instructions (If sedation given, give patient instructions): Fever in Adults (ED) Is patient prescribed a controlled substance at d/c from ED?: No Referrals: Christopher Estrada MD [Primary Care Provider] - 1-2 days Time of Disposition: 06:40
[2023-11-09] MEDS: ZIPRASIDONE 20 MG VIAL IM STA ×2 (01:20→01:33)
[2023-11-09] MEDS: SODIUM CHLORIDE 0.9% 1,000 ML IV STA (02:28)
[2023-11-09] MEDS: ACETAMINOPHEN IV (For NPO) 1,000 MG in EMPTY BAG 1 BAG IVPB ONE (02:28)
[2023-11-09] MEDS: IBUPROFEN IV 800 MG in SODIUM CHLORIDE 0.9% 250 ML IV ONE (02:28)
--- NOTE | 2023-11-09 02:50 | XR ---
EXAMINATION TYPE: XR chest 1V portable DATE OF EXAM: 11/09/2023 COMPARISON: Prior chest x-ray October 24, 2023 HISTORY: Weakness. TECHNIQUE: Single frontal view of the chest is obtained. FINDINGS: There is some chronic basilar parenchymal change without suspicious new focal air space op acity, pleural effusion, or pneumothorax seen. The cardiac silhouette size is stable mildly enlarged . The osseous structures are intact. IMPRESSION: Mild cardiomegaly without new acute pulmonary process.
[2023-11-09 02:57] LABS: ALT 39 U/L (4-49); AST 35 U/L (17-59); African American GFR (CKD) >90 (>60 ml/min/1.73 sqM); Albumin 2.9 g/dL (3.5-5.0); Alkaline Phosphatase 76 U/L (38-126); Anion Gap 3 mmol/L; Blood Urea Nitrogen 21 mg/dL (9-20); Carbon Dioxide 30 mmol/L (22-30); Chloride 97 mmol/L (98-107); Glucose 111 mg/dL (74-99); Magnesium 1.8 mg/dL (1.6-2.3); Non-African American GFR(CKD) >90 (>60 ml/min/1.73 sqM); Phosphorus 3.2 mg/dL (2.5-4.5); Potassium 3.3 mmol/L (3.5-5.1); Sodium 130 mmol/L (137-145); Total Bilirubin 0.9 mg/dL (0.2-1.3); Total Protein 5.7 g/dL (6.3-8.2)
[2023-11-09 03:06] LABS: NT-Pro-B-Type Natriuretic Pept 435 pg/mL
[2023-11-09 03:12] LABS: Basophils % (A) 0 %; Eosinophils # (A) 0.1 k/uL (0-0.7); Eosinophils % (A) 0 %; HGB 12.6 gm/dL (13.0-17.5); Lymphocytes # (A) 0.8 k/uL (1.0-4.8); Lymphocytes % (A) 6 %; MCH 27.4 pg (25.0-35.0); MCHC 33.2 g/dL (31.0-37.0); MCV 82.5 fL (80.0-100.0); Monocytes # (A) 0.8 k/uL (0-1.0); Monocytes % (A) 6 %; Neutrophils # (A) 11.8 k/uL (1.3-7.7); Neutrophils % (A) 86 %; Platelet Count 305 k/uL (150-450); RBC 4.61 m/uL (4.30-5.90); WBC 13.7 k/uL (3.8-10.6)
[2023-11-09 03:17] LABS: Partial Thromboplastin Time 24.7 sec (22.0-30.0); Prothrombin Time 10.8 sec (10.0-12.5)
[2023-11-09 06:37] LABS: Appearance,Urine Clear (Clear); Bilirubin,Urine Negative (Negative); Blood,Urine Negative (Negative); Color,Urine Colorless; Glucose,Urine (UA) Negative (Negative); Ketones,Urine Negative (Negative); Leukocyte Esterase,Urine Negative (Negative); Nitrite,Urine Negative (Negative); Protein,Urine Negative (Negative); Urobilinogen,Urine <2.0 mg/dL (<2.0)
[2023-11-09 08:07] VITALS: BP 141/87; PULSE 74; RESP 18; TEMP 98.9
== END 2023-11-09 08:30 | disposition home or self-care (01) ==
LOC: EC 00:36
DX: R50.9 Fever, unspecified (principal); Z88.0 Allergy status to penicillin
CPT/HCPCS: 99284; 96365; 96375; 96361; 96372; 36415; 93005; 83880; 80053; 83605; 83735; 84100; 84484; 85025; 85610; 85730; 81003; 87040; 87636; 71045; J3486; J0131; J1741

== ENCOUNTER 2023-11-21 06:11 | Emergency (ER) | payer OTHER ==
--- NOTE | 2023-11-21 06:39 | XR ---
EXAMINATION TYPE: XR chest 2V DATE OF EXAM: 11/21/2023 COMPARISON: Prior chest x-ray November 09, 2023 HISTORY: Cough TECHNIQUE: Frontal and lateral views of the chest are obtained. FINDINGS: There is no suspicious new focal air space opacity, pleural effusion, or pneumothorax seen . Cardiomegaly redemonstrated. Increased interstitial markings bilaterally redemonstrated. The osseo us structures are intact. IMPRESSION: Cardiomegaly without suspicious acute pulmonary infiltrate. No significant change from m ost recent prior.
--- NOTE | 2023-11-21 07:00 | ED ---
General Adult HPI - General Chief complaint: Shortness of Breath Stated complaint: DARRELL Time Seen by Provider: 11/21/23 06:16 Source: patient, EMS, RN notes reviewed, old records reviewed Mode of arrival: EMS Limitations: language barrier - History of Present Illness Initial comments: 57-year-old male presents emergency department via EMS from [facility] home f for evaluation of cough congestion. Patient reportedly had increasing nasal congestion, cough that has been productive. There has been multiple residents with similar symptoms no reports of fever patient very limited information given. No rashes noted no vomiting reported no other associated symptoms - Related Data Home Medications Medication Instructions Recorded Confirmed Ascorbic Acid [Vitamin C] 500 mg PO HS@199910/03/19 10/20/23 FLUoxetine HCL [PROzac] 80 mg PO DAILY@79910/03/19 10/20/23 Omeprazole 20 mg PO BID@699,199910/03/19 10/20/23 Vitamin E 400 unit PO HS@199910/03/19 10/20/23 polyethylene glycoL 3350 [Miralax] 17 gm PO DAILY@79910/03/19 10/20/23 Albuterol Inhaler [Ventolin Hfa 2 puff INHALATION RT-Q6H PRN 10/11/19 10/20/23 Inhaler] guaiFENesin SYRUP 100MG/5ML 200 mg PO TID PRN 10/11/19 10/20/23 [Robitussin] Donepezil HCl [Aricept] 10 mg PO HS@199909/13/22 10/20/23 Glucosam/Yoshi-Msm1/C/Kg/Bosw 1 tab PO DAILY@199909/13/22 10/20/23 [Glucosamine-Chondroitin Tablet] Ondansetron [Zofran] 4 mg PO Q8HR PRN 09/13/22 10/20/23 Pediatric Multivit No.203/Iron 2 tab PO DAILY@79909/13/22 10/20/23 [Flintstones with Iron Tab Chew] Ipratropium-Albuterol Nebulize 3 ml INHALATION RT-QID@08,12,16,20 11/18/22 10/20/23 [Duoneb 0.5 mg-3 mg/3 ml Soln] Montelukast [Singulair] 10 mg PO HS@199911/18/22 10/20/23 hydroCHLOROthiazide 12.5 mg PO DAILY@0800 11/18/22 10/20/23 Acetaminophen Tab [Tylenol] 650 mg PO Q6H PRN 10/20/23 10/20/23 Brexpiprazole [Rexulti] 0.5 mg PO HS@199910/20/23 10/20/23 Brexpiprazole [Rexulti] 1 mg PO BID@0800,159910/20/23 10/20/23 Clobetasol Propionate [Temovate 1 applic TOPICAL DAILY PRN 10/20/23 10/20/23 0.05% Oint] Furosemide [Lasix] 20 mg PO BID@0800,159910/20/23 10/20/23 Ipratropium [place] 0.06%Nasal 1 spray EA NOSTRIL BID@0800,199910/20/23 10/20/23 [Atrovent Nasal 0.06%] Potassium Chloride ER [K-Dur 10] 10 meq PO BID@0800,159910/20/23 10/20/23 carvediloL [Coreg] 12.5 mg PO BID@0800,199910/20/23 10/20/23 hydrOXYzine HCL [Atarax] 20 mg PO TID@0800,1600,199910/20/23 10/20/23 Previous Rx's Medication Instructions Recorded Loratadine-Pseudoeph 5-120 mg 1 each PO Q12HR #6 tab 10/25/23 [Claritin-D 12 Hour] Nystatin 100,000 Unit/gm Powd 1 applic TOPICAL TID #1 each 10/25/23 [Mycostatin Powder] cefUROXime axetiL [Ceftin] 500 mg PO BID #6 tab 10/25/23 Oseltamivir [Tamiflu] 75 mg PO Q12HR #10 cap 11/21/23 Allergies Allergy/AdvReac Type Severity Reaction Status Date / Time Penicillins Allergy Unknown Verified 11/21/23 06:16 Review of Systems ROS Statement: Those systems with pertinent positive or pertinent negative responses have been documented in the HPI. ROS Other: All systems not noted in ROS Statement are negative. Past Medical History Past Medical History: Hypertension, Pneumonia Additional Past Medical History / Comment(s): autism-limited speech and short phrases, can become agitated and combative,intermittent vomiting mucus when eating-no pattern or with certain foods, Dementia History of Any Multi-Drug Resistant Organisms: None Reported Past Surgical History: No Surgical Hx Reported Past Anesthesia/Blood Transfusion Reactions: No Reported Reaction Additional Past Anesthesia/Blood Transfusion Reaction / Comment(s): never has had general anesthesia Past Psychological History: Anxiety Smoking Status: Never smoker Past Alcohol Use History: None Reported Past Drug Use History: None Reported - Past Family History Mother History Unknown: Yes Father Family Medical History: Cancer Additional Family Medical History / Comment(s): prostate General Exam Limitations: no limitations General appearance: alert, in no apparent distress Head exam: Present: atraumatic, normocephalic, normal inspection Eye exam: Present: normal appearance, PERRL, EOMI. Absent: scleral icterus, conjunctival injection, periorbital swelling ENT exam: Present: normal exam, normal oropharynx, mucous membranes moist Neck exam: Present: normal inspection, full ROM. Absent: tenderness, meningismus, lymphadenopathy Respiratory exam: Present: normal lung sounds bilaterally. Absent: respiratory distress, wheezes, rales, rhonchi, stridor Cardiovascular Exam: Present: regular rate, normal rhythm, normal heart sounds. Absent: systolic murmur, diastolic murmur, rubs, gallop, clicks Course Vital Signs 11/21/23 11/21/23 06:13 06:19 Temperature 98.3 F Pulse Rate 100 Respiratory 18 18 Rate Blood Pressure 139/88 O2 Sat by Pulse 98 Oximetry Medical Decision Making - Medical Decision Making Was pt. sent in by a medical professional or institution (, PA, POULTRY TRIMMER, urgent care, hospital, or detention...) When possible be specific @ -[facility] home Did you speak to anyone other than the patient for history (EMS, parent, family, police, friend...)? What history was obtained from this source @ -No Did you review nursing and triage notes (agree or disagree)? Why? @ -I reviewed and agree with nursing and triage notes Were old charts reviewed (outside hosp., previous admission, EMS record, old EKG, old radiological studies, urgent care reports/EKG's, detention records)? Report findings @ -No old charts were reviewed Differential Diagnosis (chest pain, altered mental status, abdominal pain women, abdominal pain men, vaginal bleeding, weakness, fever, dyspnea, syncope, headache, dizziness, GI bleed, back pain, seizure, CVA, palpatations, mental health, musculoskeletal)? @ -COVID 19, RSV, influenza, pneumonia, acute bronchitis, URI, this list is not all inclusive EKG interpreted by me (3pts min.). @ -None X-rays interpreted by me (1pt min.). @ -Chest x-ray shows no acute cardiopulmonary process CT interpreted by me (1pt min.). @ -None done U/S interpreted by me (1pt. min.). @ -None done What testing was considered but not performed or refused? (CT, X-rays, U/S, labs)? Why? @ -None What meds were considered but not given or refused? Why? @ -None Did you discuss the management of the patient with other professionals (professionals i.e. , PA, POULTRY TRIMMER, lab, RT, psych nurse, social media coordinator, certified welding inspector, teacher, search and rescue officer, embedded case manager)? Give summary @ -No Was smoking cessation discussed for >3mins.? @ -No Was critical care preformed (if so, how long)? @ -No Were there social determinants of health that impacted care today? How? (Homelessness, low income, unemployed, alcoholism, drug addiction, transportation, low edu. Level, literacy, decrease access to med. care, [facility], rehab)? @ -No Was there de-escalation of care discussed even if they declined (Discuss DNR or withdrawal of care, Hospice)? DNR status @ -No What co-morbidities impacted this encounter? (DM, HTN, Smoking, COPD, CAD, Cancer, CVA, ARF, Chemo, Hep., AIDS, mental health diagnosis, sleep apnea, morbid obesity)? @ -None Was patient admitted / discharged? Hospital course, mention meds given and route, prescriptions, significant lab abnormalities, going to OR and other p ertinent info. @ -Discharged patient is influenza A positive started on Tamiflu will be discharged back to [facility] home. Undiagnosed new problem with uncertain prognosis? @ -No Drug Therapy requiring intensive monitoring for toxicity (Heparin, Nitro, Insulin, Cardizem)? @ -No Were any procedures done? @ -No Diagnosis/symptom? @ -Influenza A Acute, or Chronic, or Acute on Chronic? @ -Acute Uncomplicated (without systemic symptoms) or Complicated (systemic symptoms)? @ -Uncomplicated Side effects of treatment? @ -No Exacerbation, Progression, or Severe Exacerbation? @ -No Poses a threat to life or bodily function? How? (Chest pain, USA, CT, pneumonia, PE, COPD, DKA, ARF, appy, cholecystitis, CVA, Diverticulitis, Homicidal, Suicidal, threat to staff... and all critical care pts) @ -No - Lab Data Lab Results 11/21/23 Range/Units 06:20 Influenza Type A (PCR) Detected A (Not Detectd) Influenza Type B (PCR) Not Detected (Not Detectd) RSV (PCR) Not Detected (Not Detectd) SARS-CoV-2 (PCR) Not Detected (Not Detectd) Disposition Clinical Impression: Influenza A Disposition: HOME SELF-CARE Condition: Stable Instructions (If sedation given, give patient instructions): Influenza (ED) Additional Instructions: Please return to the Emergency Department if symptoms worsen or any other concerns. Prescriptions: Oseltamivir [Tamiflu] 75 mg PO Q12HR #10 cap Is patient prescribed a controlled substance at d/c from ED?: No Referrals: Christopher Estrada MD [Primary Care Provider] - 1-2 days Time of Disposition: 07:21
[2023-11-21 07:49] VITALS: RESP 18; TEMP 98.3
[2023-11-21 08:29] VITALS: BP 139/88; PULSE 100
== END 2023-11-21 08:50 | disposition home or self-care (01) ==
LOC: EC 06:11
DX: J10.1 Influenza due to other identified influenza virus with other respiratory manifestations (principal); Z88.0 Allergy status to penicillin
CPT/HCPCS: 71046; 87636; 99285